=== PATIENT | male | born 1935 | race American Indian/Alaskan Native ===

== ENCOUNTER 2018-06-18 10:04 | Inpatient (IN) | payer OTHER, MEDICARE ==
[2018-06-18 10:10] VITALS: BMI 19.3
[2018-06-18] MEDS ORDERED: Vancomycin 1 gm/NS 200 ml 1 GM/200 ML BAG IVPB STA (10:25)
[2018-06-18] MEDS ORDERED: Piperacill/Tazo 4.5gm in Dex 4.5 GM/100 ML BAG IVPB STA (10:25)
[2018-06-18] MEDS: Sodium Chloride 0.9% 1,000 ML IV SCH ×2 (10:32→16:33)
[2018-06-18 10:49] LABS: BASO % 0.2 % (0.0-2.0); EOS % 0.1 % (0.0-4.0); LYMPH # 0.6 K/uL (1.0-4.3); LYMPH % 3.1 % (20.0-40.0); MEAN CELL VOLUME 81.8 fL (80.0-94.0); MEAN CORPUSCULAR HEMOGLOBIN 26.5 pg (27.0-31.0); MEAN CORPUSCULAR HGB CONC 32.4 g/dL (33.0-37.0); MEAN PLATELET VOLUME 7.8 fL (7.2-11.7); MONO # 1.6 K/uL (0.0-0.8); MONO % 8.5 % (0.0-10.0); NEUT # 16.6 K/uL (1.8-7.0); NEUT % 88.1 % (50.0-75.0); NRBC % 0.1 % (0.0-2.0); PLATELET COUNT 324 K/uL (130-400); RBC 3.75 Mil/uL (4.40-5.90); RED CELL DISTRIBUTION WIDTH 15.1 % (11.5-14.5); WHITE BLOOD COUNT 18.8 K/uL (4.8-10.8)
[2018-06-18 10:56] LABS: INR 1.8; PROTHROMBIN TIME 19.5 SECONDS (9.7-12.2)
[2018-06-18 11:03] LABS: ALB/GLOB RATIO 0.9 (1.0-2.1); ALBUMIN 3.2 g/dL (3.5-5.0); CALCIUM 9.6 mg/dl (8.6-10.4)
[2018-06-18 11:34] LABS: BANDS 2 % (0-2); MONOCYTE 7 % (0-10); TOTAL CELLS COUNTED 100
[2018-06-18 11:35] LABS: ANISOCYTOSIS SLIGHT; HYPOCHROMIC SLIGHT; LYMPHOCYTE 2 % (20-40); NEUTROPHIL 89 % (50-75); PLATELET ESTIMATE NORMAL (NORMAL); POIKILOCYTOSIS SLIGHT; TARGET CELLS SLIGHT
--- NOTE | 2018-06-18 11:39 | RAD ---
Date of service: 06/18/2018 HISTORY: Sepsis Patient COMPARISON: No prior. FINDINGS: LUNGS: No active pulmonary disease. PLEURA: No significant pleural effusion identified, no pneumothorax apparent. CARDIOVASCULAR: No radiographic findings to suggest acute or significant cardiovascular disease. OSSEOUS STRUCTURES: No significant abnormalities. VISUALIZED UPPER ABDOMEN: Normal. OTHER FINDINGS: None. IMPRESSION: No active disease.
[2018-06-18 12:48] LABS: VENOUS BLOOD PH 7.47 (7.32-7.43)
[2018-06-18 12:49] LABS: VENOUS BLOOD FIO2 21 %; VENOUS BLOOD GAS BASE EXCESS 4.5 mmol/L (0.0-2.0); VENOUS BLOOD GAS PCO2 39 mmHg (40-60); VENOUS BLOOD GAS PO2 59 mm/Hg (30-55)
--- NOTE | 2018-06-18 13:39 | C.PDOC ---
History Of Present Illness 83 y/o male brought in from rehab center via EMS for fever. Patient was given Tylenol prior to arrival. As per family at bedside, patient was placed in rehab center following sepsis from last week. Patient offers no complaints at this time. Time Seen by Provider: 06/18/18 10:17 Chief Complaint (Nursing): Fever History Per: Patient History/Exam Limitations: no limitations Onset/Duration Of Symptoms: Hrs Current Symptoms Are (Timing): Still Present Associated Symptoms: Fever Additional History Per: EMS, Family Past Medical History Reviewed: Historical Data, Nursing Documentation, Vital Signs Vital Signs: Last Vital Signs Temp 98.2 F 06/18/18 13:18 Pulse 89 06/18/18 13:18 Resp 18 06/18/18 13:18 BP 147/54 L 06/18/18 13:18 Pulse Ox 99 06/18/18 12:02 - Medical History PMH: Anemia, Dementia, HTN, Parkinson's Disease Denies: Chronic Kidney Disease - [facility] Procedures CHANGE FEEDING DEVICE IN UP INTEST TRACT, COMPUTER SPECIALIST APPROACH (05/27/18) EXTIRPATION OF MATTER FROM RECTUM, VIA OPENING (05/27/18) INSERTION OF FEEDING DEVICE INTO STOMACH, OPEN APPROACH (05/27/18) INSERTION OF INFUSION DEVICE INTO UPPER VEIN, PERC APPROACH (05/27/18) INTRODUCTION OF NUTRITIONAL INTO PERIPH VEIN, PERC APPROACH (05/27/18) ULTRASONOGRAPHY OF RIGHT UPPER EXTREMITY VEINS, GUIDANCE (05/27/18) Family History: States: No Known Family Hx - Social History Hx Alcohol Use: No Hx Substance Use: No Review Of Systems Except As Marked, All Systems Reviewed And Found Negative. Constitutional: Positive for: Fever Eyes: Negative for: Vision Change Cardiovascular: Negative for: Chest Pain Respiratory: Negative for: Shortness of Breath Gastrointestinal: Negative for: Vomiting, Abdominal Pain, Diarrhea Skin: Negative for: Lesions, Bruising Neurological: Negative for: Weakness, Headache Physical Exam - Physical Exam Appears: Non-toxic, No Acute Distress Skin: Warm, Dry, No Rash Head: Atraumatic, Normacephalic Eye(s): bilateral: Normal Inspection Oral Mucosa: Dry Neck: Normal ROM Chest: Symmetrical Cardiovascular: Murmur (+ Systolic murmur) Respiratory: No Rales, No Rhonchi, No Wheezing, Other (Poor inspiratory effort) Gastrointestinal/Abdominal: Bowel Sounds (good), Soft, No Tenderness, No Distention, Other (PEG tube in place) Back: No CVA Tenderness, No Vertebral Tenderness Extremity: Bilateral: Atraumatic, Normal Color And Temperature Pulses: Left Dorsalis Pedis: Normal, Right Dorsalis Pedis: Normal ED Course And Treatment - Laboratory Results Result Diagrams: 06/18/18 10:37 06/18/18 10:37 O2 Sat by Pulse Oximetry: 99 (NC) Pulse Ox Interpretation: Normal - Other Rad CXR X-Ray: Viewed By Me, Read By Radiologist Interpretation: Kessler, Howard MD. Patient NameCUMMEDILSON JONES / [id number] Samuels MD. Study [id number] 11:11:35Transcriber. Sex / AgeM / [id number] Samuels MD. [facility] CenterApproval [id number] 11:38:08. My Comment. Study Comments. Report. Date of service: 06/18/2018. HISTORY: Sepsis Patient. COMPARISON: No prior. FINDINGS: LUNGS: No active pulmonary disease. PLEURA: No significant pleural effusion identified, no pneumothorax apparent. CARDIOVASCULAR: No radiographic findings to suggest acute or significant cardiovascular disease. OSSEOUS STRUCTURES: No significant abnormalities. VISUALIZED UPPER ABDOMEN: Normal. OTHER FINDINGS: None. IMPRESSION: No active disease. Medical Decision Making Medical Decision Making: After resuscitation, patient opening eyes and responding normal as per family. Initial Plan: --EKG --VBG --Blood work --Urinalysis --Chest x-ray --Blood and urine cultures --IVF hydration --IV zosyn and vanco As per PMD, hematuria is chronic and pt should be admitted to [facility]. Hospitalist paged, accepted patient for admission for dehydration. Disposition Counseled Patient/Family Regarding: Diagnosis - Disposition Disposition: HOSPITALIZED Disposition Time: 11:45 Condition: STABLE - Clinical Impression Clinical Impression: Fever, Dehydration - Scribe Statement The provider has reviewed the documentation as recorded by the Misbahibe Rosina Gardner Provider Attestation: All medical record entries made by the Misbahibsamantha were at my direction and p ersonally dictated by me. I have reviewed the chart and agree that the record accurately reflects my personal performance of the history, physical exam, medical decision making, and the department course for this patient. I have also personally directed, reviewed, and agree with the discharge instructions and disposition.
--- NOTE | 2018-06-18 13:41 | CP.PCM.HP ---
<Olivia Osuna - Last Filed: 06/18/18 19:57> History of Present Illness - History of Present Illness History of Present Illness: Patient seen and examined in Room 353B at approximately 14:15 PM . Patient is nonverbal. CODE STATUS could not be determined at this time. Patient's daughter is his emergency contact. She can be reached at [phone]. CC: Fever HPI: 83 year old male with past medical history significant for HTN, DM, Parkinson's dementia presents with fever. Patient apparently was brought in from the rehab facility earlier today. Of note, patient was recently discharged 06/13/18 from [facility] after a hospital course where he was diagnosed with Severe Sepsis secondary to suspected sacral decubitus ulcer. Patient is currently nonverbal and not able to provide a review of systems. History obtained from prior hospital records anne marie to patient's nonverbal status. PMHx: Parkinson's, DM2, HTN PSHx: G-tube placed on prior hospital admission at [facility] (06/06/18) FamHx: Brother had DM2 Home meds: Unsure at this time- To confirm with family. Social Hx: no tobacco hx, remote alcohol hx - unsure of amount, recently moved from [place] - now living with his daughter at home Allergies: NKDA PMD- Dr. Heard Present on Admission - Present on Admission Any Indicators Present on Admission: Yes Urinary Catheter: Yes Decubitus Ulcer Present: Yes Decubitus Ulcer Stage: II (Stage 2 and Stage 1 ulcers noted in sacral region) Review of Systems - Review of Systems Systems not reviewed;Unavailable: Other (Cannot obtain at this time as patient is non-verbal at baseline and not able to communicate well) Past Patient History - CARDIAC Hx Hypertension: Yes - PULMONARY Hx Respiratory Disorders: No - NEUROLOGICAL Hx Dementia: Yes Hx Parkinson's Disease: Yes - HEENT Hx HEENT Problems: Yes Hx Difficulty Chewing: Yes - RENAL Hx Chronic Kidney Disease: No - ENDOCRINE/METABOLIC Hx Diabetes Mellitus Type 2: Yes - HEMATOLOGICAL/ONCOLOGICAL Hx Anemia: Yes - INTEGUMENTARY Hx Dermatological Problems: Yes Other/Comment: skin breakdown sacrum - MUSCULOSKELETAL/RHEUMATOLOGICAL Hx Musculoskeletal Disorders: Yes Hx Falls: No Hx Unsteady Gait: Yes Other/Comment: bed bound - GASTROINTESTINAL Hx Gastrointestinal Disorders: No Other/Comment: PEG tube - GENITOURINARY/GYNECOLOGICAL Hx Genitourinary Disorders: Yes Hx Incontinence: Yes - PSYCHIATRIC Hx Substance Use: No - SURGICAL HISTORY Hx Surgeries: Yes - ANESTHESIA Hx Anesthesia: Yes Hx Anesthesia Reactions: No Meds Allergies/Adverse Reactions: Allergies Allergy/AdvReac Type Severity Reaction Status Date / Time No Known Allergies Allergy Verified 05/27/18 19:08 Physical Exam - Constitutional Appears: No Acute Distress Additional comments: Limited exam at this time due to patient's presentation - Head Exam Head Exam: ATRAUMATIC, NORMAL INSPECTION - ENT Exam ENT Exam: Mucous Membranes Dry - Neck Exam Additional comments: cannot assess at this time - Respiratory Exam Respiratory Exam: NORMAL BREATHING PATTERN. absent: Wheezes - Cardiovascular Exam Cardiovascular Exam: +S1, +S2 - GI/Abdominal Exam GI & Abdominal Exam: Soft Additional comments: G-tube in place- abdominal binder noted - Extremities Exam Additional comments: contracture of upper extremities noted; rigidity noted on exam offloading boots noted on feet bilaterally - Neurological Exam Neurological exam: Altered - Psychiatric Exam Psychiatric exam: Flat Affect - Skin Skin Exam: Dry, Normal Color, Warm Additional comments: Stage 1 right-sided lateral sacral ulcer Stage 2 sacral decubitus ulcer Results - Vital Signs Recent Vital Signs: Last Vital Signs Temp 98.2 F 06/18/18 13:18 Pulse 89 06/18/18 13:18 Resp 18 06/18/18 13:18 BP 147/54 L 06/18/18 13:18 Pulse Ox 99 06/18/18 13:40 - Labs Result Diagrams: 06/18/18 10:37 06/18/18 10:37 Labs: Laboratory Results - last 24 hr 06/18/18 06/18/18 06/18/18 10:10 10:37 10:37 WBC 18.8 H RBC 3.75 L Hgb 10.0 L Hct 30.7 L MCV 81.8 MCH 26.5 L MCHC 32.4 L RDW 15.1 H Plt Count 324 MPV 7.8 Neut % (Auto) 88.1 H Lymph % (Auto) 3.1 L [place] % (Auto) 8.5 Eos % (Auto) 0.1 Baso % (Auto) 0.2 Neut # (Auto) 16.6 H Lymph # (Auto) 0.6 L [place] # (Auto) 1.6 H Eos # (Auto) 0.0 Baso # (Auto) 0.0 Neutrophils % (Manual) 89 H Band Neutrophils % 2 Lymphocytes % (Manual) 2 L Monocytes % (Manual) 7 Platelet Estimate Normal Hypochromasia (manual) Slight Poikilocytosis (manual Slight Anisocytosis (manual) Slight Target Cells Slight PT 19.5 H INR 1.8 APTT 36 H pO2 VBG pH VBG pCO2 VBG HCO3 VBG Total CO2 VBG O2 Sat (Calc) VBG Base Excess FiO2 Sodium Potassium Chloride Carbon Dioxide Anion Gap BUN Creatinine Est GFR ( Amer) Est GFR (Non-Af Amer) POC Glucose (mg/dL) 224 H Random Glucose Calcium Phosphorus Magnesium Total Bilirubin AST ALT Alkaline Phosphatase Total Protein Albumin Globulin Albumin/Globulin Ratio 06/18/18 06/18/18 10:37 10:54 WBC RBC Hgb Hct MCV MCH MCHC RDW Plt Count MPV Neut % (Auto) Lymph % (Auto) [place] % (Auto) Eos % (Auto) Baso % (Auto) Neut # (Auto) Lymph # (Auto) [place] # (Auto) Eos # (Auto) Baso # (Auto) Neutrophils % (Manual) Band Neutrophils % Lymphocytes % (Manual) Monocytes % (Manual) Platelet Estimate Hypochromasia (manual) Poikilocytosis (manual Anisocytosis (manual) Target Cells PT INR APTT pO2 59 H VBG pH 7.47 H VBG pCO2 39 L VBG HCO3 28.3 VBG Total CO2 29.6 H VBG O2 Sat (Calc) 92.2 H VBG Base Excess 4.5 H FiO2 21 Sodium 141 Potassium 4.3 Chloride 103 Carbon Dioxide 30 Anion Gap 13 BUN 46 H Creatinine 1.4 Est GFR ( Amer) 59 Est GFR (Non-Af Amer) 48 POC Glucose (mg/dL) Random Glucose 206 H Calcium 9.6 Phosphorus 3.3 Magnesium 2.1 Total Bilirubin 0.2 AST 168 H D ALT 157 H Alkaline Phosphatase 175 H D Total Protein 6.8 Albumin 3.2 L Globulin 3.5 Albumin/Globulin Ratio 0.9 L Assessment & Plan (1) Leukocytosis Assessment and Plan: WBC 18.8 No Bands noted Low grade fever initially 100.1 but then normalized Zosyn Q8H and Vancomycin Q12 started 06/18. Bacid Q12 started 06/18 F/U Vanc trough 06/19 at 18:00 NS @ 150 cc/hr F/U BC, UA, UC cultures Status: Acute (2) Sacral decubitus ulcer Assessment and Plan: Previously treated at [facility] earlier this month. Stage 1 right-sided lateral sacral ulcer Stage 2 sacral decubitus ulcer Wound care in place- Closely monitor Turn Q2H Status: Acute (3) Transaminitis Assessment and Plan: Avoid Tylenol or other Hepatotoxic agents at this time F/U Hep Panel Status: Acute (4) HTN (hypertension) Assessment and Plan: Clonidine patch TD Monitor Pressure Status: Chronic (5) Diabetes mellitus Assessment and Plan: ISS Low dose Accuchecks Hgb 6.4 on prior admission Status: Chronic (6) Parkinson's disease dementia Assessment and Plan: Chronic Not on any medication Rigidity noted on exam Palliative Consult placed- F/U Status: Chronic (7) Prophylactic measure Assessment and Plan: No GI prophylaxis at this time Heparin SC Q12 SCDs Status: Acute <Mitch Colón - Last Filed: 06/21/18 17:39> Results - Vital Signs Recent Vital Signs: Last Vital Signs Temp 98.4 F 06/21/18 15:45 Pulse 70 06/21/18 15:45 Resp 20 06/21/18 15:45 BP 171/81 H 06/21/18 15:45 Pulse Ox 100 06/21/18 15:45 - Labs Result Diagrams: 06/21/18 04:00 06/21/18 04:00 Labs: Laboratory Results - last 24 hr 06/20/18 06/21/18 06/21/18 21:19 04:00 04:00 WBC 9.4 RBC 3.18 L Hgb 8.5 L Hct 25.9 L MCV 81.4 MCH 26.7 L MCHC 32.8 L RDW 15.2 H Plt Count 309 MPV 7.4 Neut % (Auto) 71.0 Lymph % (Auto) 17.1 L [place] % (Auto) 9.5 Eos % (Auto) 2.0 Baso % (Auto) 0.4 Neut # (Auto) 6.7 Lymph # (Auto) 1.6 [place] # (Auto) 0.9 H Eos # (Auto) 0.2 Baso # (Auto) 0.0 Sodium 142 Potassium 3.3 L Chloride 108 H Carbon Dioxide 24 Anion Gap 13 BUN 17 Creatinine 0.8 Est GFR ( Amer) > 60 Est GFR (Non-Af Amer) > 60 POC Glucose (mg/dL) 96 Random Glucose 108 Calcium 8.4 L Phosphorus 3.0 Magnesium 1.8 Total Bilirubin 0.3 AST 43 ALT 124 H D Alkaline Phosphatase 159 H Total Protein 5.6 L Albumin 2.4 L Globulin 3.2 Albumin/Globulin Ratio 0.8 L Vancomycin Trough 06/21/18 06/21/18 06/21/18 04:00 07:21 11:22 WBC RBC Hgb Hct MCV MCH MCHC RDW Plt Count MPV Neut % (Auto) Lymph % (Auto) [place] % (Auto) Eos % (Auto) Baso % (Auto) Neut # (Auto) Lymph # (Auto) [place] # (Auto) Eos # (Auto) Baso # (Auto) Sodium Potassium Chloride Carbon Dioxide Anion Gap BUN Creatinine Est GFR ( Amer) Est GFR (Non-Af Amer) POC Glucose (mg/dL) 138 H 132 H Random Glucose Calcium Phosphorus Magnesium Total Bilirubin AST ALT Alkaline Phosphatase Total Protein Albumin Globulin Albumin/Globulin Ratio Vancomycin Trough 13.8 H 06/21/18 16:17 WBC RBC Hgb Hct MCV MCH MCHC RDW Plt Count MPV Neut % (Auto) Lymph % (Auto) [place] % (Auto) Eos % (Auto) Baso % (Auto) Neut # (Auto) Lymph # (Auto) [place] # (Auto) Eos # (Auto) Baso # (Auto) Sodium Potassium Chloride Carbon Dioxide Anion Gap BUN Creatinine Est GFR ( Amer) Est GFR (Non-Af Amer) POC Glucose (mg/dL) 128 H Random Glucose Calcium Phosphorus Magnesium Total Bilirubin AST ALT Alkaline Phosphatase Total Protein Albumin Globulin Albumin/Globulin Ratio Vancomycin Trough Attending/Attestation - Attestation I have personally seen and examined this patient.: Yes I have fully participated in the care of the patient.: Yes I have reviewed all pertinent clinical information: Yes Notes (Text): Fever Work up in ED insufficient. Check UA, blood cultures. Possible source urine, penumonia, sacral decub. Sepsis? follow lactate possible change in ms - unk baseline
[2018-06-18] MEDS ORDERED: Glucagon Recombinant 1 mg Inj IM PRN (17:17)
[2018-06-18] MEDS ORDERED: Dextrose 50% SYRINGE Inj (50 ml) IV PRN (17:17)
[2018-06-18] MEDS: Lactobacillus Acidophilus 500 MU Cap PO SCH (19:01)
[2018-06-18] MEDS ORDERED: Vancomycin 1 gm/NS 200 ml 1 GM/200 ML BAG IVPB SCH (22:00)
[2018-06-18] MEDS: (Novolog) Insulin Aspart, Recombinant 100 u/ml 10 ml vial SC SCH (22:08)
[2018-06-18 22:46] LABS: SQUAMOUS EPITHIAL 1 /hpf (0-5); URINE BACTERIA RARE (<OCC); URINE BILIRUBIN NEGATIVE (NEGATIVE); URINE BLOOD 3+ (NEGATIVE); URINE CLARITY Hazy (Clear); URINE GLUCOSE (UA) NORMAL (Normal); URINE LEUKOCYTE ESTERASE 3+ Leu/uL (Negative); URINE PROTEIN 2+ mg/dL (NEGATIVE); URINE UROBILINOGEN NORMAL mg/dL (0.2-1.0)
[2018-06-18 22:47] LABS: URINE COLOR AMBER (YELLOW)
[2018-06-19] MEDS: Vancomycin 1 gm/NS 200 ml 1 GM/200 ML BAG IVPB SCH ×2 (03:25→15:00)
[2018-06-19] MEDS: Piperacillin/Tazobact 3.375 GM in Sodium Chloride 100 ML IVPB SCH ×3 (06:30→18:22)
[2018-06-19] MEDS: Sodium Chloride 0.9% 1,000 ML IV SCH ×4 (06:46→21:38)
[2018-06-19 06:52] LABS: BASO # 0.1 K/uL (0.0-0.2); BASO % 0.3 % (0.0-2.0); EOS # 0.1 K/uL (0.0-0.7); EOS % 0.6 % (0.0-4.0); HEMOGLOBIN 8.3 g/dL (12.0-18.0); LYMPH # 1.3 K/uL (1.0-4.3); LYMPH % 7.6 % (20.0-40.0); MEAN CELL VOLUME 81.1 fL (80.0-94.0); MEAN CORPUSCULAR HEMOGLOBIN 26.9 pg (27.0-31.0); MEAN CORPUSCULAR HGB CONC 33.2 g/dL (33.0-37.0); MEAN PLATELET VOLUME 7.5 fL (7.2-11.7); MONO # 1.1 K/uL (0.0-0.8); MONO % 6.3 % (0.0-10.0); NEUT % 85.2 % (50.0-75.0); PLATELET COUNT 287 K/uL (130-400); RBC 3.08 Mil/uL (4.40-5.90); WHITE BLOOD COUNT 17.6 K/uL (4.8-10.8)
[2018-06-19] MEDS ORDERED: Vancomycin 1 gm/NS 200 ml 1 GM/200 ML BAG IVPB SCH (07:00)
[2018-06-19 07:22] LABS: ALB/GLOB RATIO 0.8 (1.0-2.1); ALBUMIN 2.6 g/dL (3.5-5.0); ALT/SGPT 250 U/L (21-72); AST/SGOT 317 U/L (17-59); BLOOD UREA NITROGEN 37 mg/dL (9-20); CALCIUM 8.8 mg/dl (8.6-10.4); GFR NON-AFRICAN AMERICAN > 60
[2018-06-19 07:26] LABS: HEPATITIS B SURFACE AG Negative (NEGATIVE)
[2018-06-19 07:32] LABS: HEPATITIS A IGM NEGATIVE (NEGATIVE); HEPATITIS B CORE AB NEGATIVE (NEGATIVE)
[2018-06-19 07:43] LABS: HEPATITIS C ANTIBODY NEGATIVE (NEGATIVE)
[2018-06-19] MEDS: (Novolog) Insulin Aspart, Recombinant 100 u/ml 10 ml vial SC SCH ×4 (07:55→21:44)
[2018-06-19 08:49] LABS: ANISOCYTOSIS SLIGHT; BANDS 2 % (0-2); LYMPHOCYTE 9 % (20-40); MONOCYTE 6 % (0-10); NEUTROPHIL 83 % (50-75); PLATELET ESTIMATE NORMAL (NORMAL); TOTAL CELLS COUNTED 100
[2018-06-19 08:50] LABS: HYPOCHROMIC SLIGHT; POLYCHROMIC SLIGHT
--- NOTE | 2018-06-19 10:15 | CP.PCM.PN ---
Addendum entered and electronically signed by Marlin Galicia 06/19/18 15:23: Nursing reports G-tube pulled around 2:30pm -reinserted by sx residents Addendum entered and electronically signed by Marlin Galicia 06/19/18 13:51: Bacteremia, likely 2/2 pyelo -gram neg frandy, awaiting micro cx -zosyn 3.375 q6 Addendum entered and electronically signed by Marlin Galicia 06/19/18 13:49: CT abd/pelvis shows possible colitis/rectal lesion. -Flagyl 500mg q8 Original Note: <Marlin Galicia - Last Filed: 06/19/18 10:46> Subjective - Date & Time of Evaluation Date of Evaluation: 06/19/18 Time of Evaluation: 09:40 - Subjective Subjective: Patient examined at bedside, resting comfortably. No acute events reported overnight. Patient is non-verbal. Objective - Vital Signs/Intake and Output Vital Signs (last 24 hours): Temp Pulse Resp BP Pulse Ox 98.7 F 75 20 121/66 100 06/19/18 08:00 06/19/18 08:00 06/19/18 08:00 06/19/18 08:00 06/19/18 08:00 Intake and Output: 06/19/18 06/19/18 06:59 18:59 Intake Total 3480 Output Total 800 Balance 2680 - Medications Medications: Current Medications Clonidine HCl (Catapres Tts1 0.1 Mg/24 Hr) 1 patch TD Q7D@1000 REPLACED BY [facility] Last Admin: 06/18/18 22:00 Dose: 1 patch Dextrose (Dextrose 50% Inj) 0 ml IV STAT PRN; Protocol PRN Reason: Hypoglycemia Protocol Dextrose (Glutose 15) 0 gm PO ONCE PRN; Protocol PRN Reason: Hypoglycemia Protocol Glucagon (Glucagen Diagnostic Kit) 0 mg IM STAT PRN; Protocol PRN Reason: Hypoglycemia Protocol Heparin Sodium (Porcine) (Heparin) 5,000 units SC Q12 REPLACED BY [facility] Last Admin: 06/18/18 22:41 Dose: Not Given Sodium Chloride (Sodium Chloride 0.9%) 1,000 mls @ 150 mls/hr IV .Q6H40M REPLACED BY [facility] Last Admin: 06/19/18 06:46 Dose: Not Given Piperacillin Sod/Tazobactam (Sod 3.375 gm/ Sodium Chloride) 100 mls @ 200 mls/hr IVPB Q6H [facility]; Protocol Last Admin: 06/19/18 06:30 Dose: 200 mls/hr Dextrose (Dextrose 5% In Water 1000 Ml) 1,000 mls @ 0 mls/hr IV .Q0M PRN; Protocol PRN Reason: Hypoglycemia Protocol Vancomycin/Sodium Chloride (Vancomycin 1 Gm/Ns 200 Ml) 1 gm in 200 mls @ 133.333 mls/hr IVPB Q12H [facility]; Protocol Stop: 06/24/18 03:01 Last Admin: 06/19/18 03:25 Dose: 133.333 mls/hr Insulin Aspart (Novolog) 0 unit SC ACHS [facility]; Protocol Last Admin: 06/19/18 07:55 Dose: Not Given Lactobacillus Acidophilus (Bacid Acidophilus) 1 cap PO BID [facility] Last Admin: 06/18/18 19:01 Dose: 1 cap Pneumococcal Polyvalent Vaccine (Pneumovax 23 Vaccine) 0.5 ml IM .ONCE ONE Stop: 06/21/18 10:01 - Labs Labs: 06/19/18 06:35 06/19/18 06:35 PT 19.5 SECONDS (9.7-12.2) H 06/18/18 10:37 INR 1.8 06/18/18 10:37 APTT 36 SECONDS (21-34) H 06/18/18 10:37 - Constitutional Appears: Non-toxic, No Acute Distress - Head Exam Head Exam: ATRAUMATIC, NORMAL INSPECTION, NORMOCEPHALIC - ENT Exam ENT Exam: Mucous Membranes Moist - Neck Exam Neck Exam: Normal Inspection - Respiratory Exam Respiratory Exam: Clear to Ausculation Bilateral, NORMAL BREATHING PATTERN. absent: Rhonchi, Wheezes - Cardiovascular Exam Cardiovascular Exam: REGULAR RHYTHM. absent: Tachycardia, Murmur - GI/Abdominal Exam GI & Abdominal Exam: Soft, Normal Bowel Sounds. absent: Distended Additional comments: PEG tube dressed, clean dry and intact - Extremities Exam Extremities Exam: Normal Inspection. absent: Pedal Edema - Neurological Exam Neurological Exam: Altered. absent: Awake - Skin Skin Exam: Dry, Normal Color, Warm. absent: Intact (sacral decubitus ulcer not examined, per reports stage 2) Assessment and Plan - Assessment and Plan (Free Text) Assessment: 83 yo M w/ PMHx of HTN, DM2, Parkinsons, recent severe sepsis infxn, admitted w/ leukocytosis Leukocytosis, r/o sepsis -WBC 18.8-->17.6 today -zosyn 3.375 q6 -vanco 1g q12 -NS @150 -f/u vanc trough -AMS, unsure of baseline -f/u lactate -f/u procalcitonin -UTI/pyelo suspected source of infection UTI/pyelonephritis -f/u CT abd/pelvis fror pyelo or intra abd abscess -f/u urine cx AMS -called daughter at [phone] and left message, call back later Sacral Decubitus ulcer -stage 2, likely not source of leukocytosis -wound care -position changes q2 Transaminitis -worsening liver enzymes -Hep panel negative -f/u CT for evidence of cholecystitis HTN, chronic -clonidine patch TD DM2 -Accuchecks ACHS -ISS low dose -glucerna PEG @50 Parkinsons -stable -palliative consult Ppx -heparin 5000 sc q12 -lactobacillus BID <Mitch Colón - Last Filed: 06/21/18 17:37> Attending/Attestation - Attestation I have personally seen and examined this patient.: Yes I have fully participated in the care of the patient.: Yes I have reviewed all pertinent clinical information, including history, physical exam and plan: Yes Notes (Text): 83 yo M w/ PMHx of HTN, DM2, Parkinsons, recent severe sepsis infxn, admitted w/ leukocytosis Leukocytosis, Sepsis? / Bactermia UTI/pyelonephritis AMS ? baseline Sacral Decubitus ulcer
[2018-06-19] MEDS: Lactobacillus Acidophilus 500 MU Cap PO SCH ×2 (10:16→18:21)
[2018-06-19 12:19] LABS: VENOUS BLOOD GAS BASE EXCESS -11.2 mmol/L (0.0-2.0); VENOUS BLOOD GAS PCO2 64 mmHg (40-60); VENOUS BLOOD GAS PO2 129 mm/Hg (30-55); VENOUS BLOOD PH 7.09 (7.32-7.43)
[2018-06-19 13:07] LABS: ALB/GLOB RATIO 0.8 (1.0-2.1); ALBUMIN 2.7 g/dL (3.5-5.0); ALT/SGPT 244 U/L (21-72); AST/SGOT 258 U/L (17-59); BLOOD UREA NITROGEN 32 mg/dL (9-20); CALCIUM 9.1 mg/dl (8.6-10.4); GFR NON-AFRICAN AMERICAN > 60
[2018-06-19 13:17] LABS: ABG ALLEN TEST POS; ARTERIAL BLOOD GAS HCO3 25.4 mmol/L (21-28); ARTERIAL BLOOD GAS O2 SAT 99.6 % (95-98); ARTERIAL BLOOD GAS PCO2 37 mm/Hg (35-45); ARTERIAL BLOOD GAS PH 7.43 (7.35-7.45); ARTERIAL BLOOD GAS PO2 176 mm/Hg (80-100); ARTERIAL BLOOD GAS TCO2 25.7 mmol/L (22-28)
--- NOTE | 2018-06-19 13:34 | CT ---
Date of service: 06/19/2018 PROCEDURE: CT abdomen pelvis HISTORY: Rule out intra-abdominal abscess/pyelo COMPARISON: No prior study available for comparison TECHNIQUE: Contiguous axial images of the abdomen and pelvis performed without oral or intravenous contrast material. Additional 2D sagittal and coronal reformats generated. Radiation dose: Total exam DLP = 385.06 mGy-cm. This CT exam was performed using one or more of the following dose reduction techniques: Automated exposure control, adjustment of the mA and/or kV according to patient size, and/or use of iterative reconstruction technique. FINDINGS: LOWER THORAX: Mild bibasilar atelectasis right greater than left. No evidence of basilar pneumothorax. Small calcified granuloma left lateral lower lung field along the left posterolateral convexity near the pleural surface. Heart is enlarged. Small pericardial effusion. Findings suggest anemia however clinical correlation with laboratory values recommended LIVER: Liver exhibits normal size measuring the approximately 17 cm in CC dimension. No obvious hepatic mass collection or calcification. GALLBLADDER AND BILE DUCTS: Gallbladder physiologically distended.. There is a large intraluminal gallbladder calculus the. PANCREAS: Pancreas is poorly delineated due to a paucity of retroperitoneal as well as intraperitoneal fat and unopacified crowded the bowel loops.. SPLEEN: Spleen exhibits normal size. ADRENALS: No definitive adrenal lesions. KIDNEYS AND URETERS: Kidneys demonstrate relatively symmetric size. Vague area low attenuation involving the anterior cortex lower pole right kidney could represent volume averaging artifact however the possibility of a pyelonephritis cannot be excluded. No evidence of nephrolithiasis or hydronephrosis BLADDER: There is an in situ unclamped Mckinnon catheter within the bladder lumen. The urinary bladder is collapsed with thickening of the bladder wall. Muscular hypertrophy presumably contributes. Possibility of a cystitis/UTI not excluded. Small amount of intraluminal air within the urinary bladder likely due to instrumentation. REPRODUCTIVE: Prostate gland appears enlarged measuring approximately 4.7 cm in transverse dimension.. Enlargement likely due to BPH however correlation with PSA suggested. APPENDIX: Appendix is not seen with complete certainty BOWEL: Evaluation of the bowel limited due to the lack of oral contrast material. Stomach is incompletely distended with insitu PEG tube. Visualized loops of small bowel exhibit relatively normal contour and caliber with no evidence of small bowel obstruction. There is wall thickening of the distal descending/sigmoid colon junction extending the length of the sigmoid colon including the rectum where there is more significant asymmetric wall thickening of the rectal wall. Findings may represent a colitis however possibility of other intrinsic/invasive wall lesions not excluded. The there is a stoma seen along the left parasagittal mid anterior abdominal wall through which a loop of bowel extends. PERITONEUM: There appears to be a small amount of free fluid in the pelvis.There is a small right inguinal hernia that contains 1 or 2 loops of unobstructed small bowel and mesenteric fat LYMPH NODES: Evaluation for adenopathy is also limited the due to paucity of retroperitoneal/peritoneal fat well as crowded loops of bowel VASCULATURE: Unremarkable. No aortic aneurysm. BONES: No fracture or destructive lesion. OTHER FINDINGS: Some vague infiltration changes seen in the the soft tissues overlying the distal sacrum likely representing treated sacral decubitus ulcer. IMPRESSION: Mild bibasilar atelectasis right greater than left. Cardiomegaly with small pericardial effusion. Findings also suggestive of anemia. Cholelithiasis. In situ PEG tube. Wall thickening of the distal descending/sigmoid colon extending to the level of the rectum where more significant asymmetric wall thickening is present. While these findings could be due to a colitis, the possibility of invasive/intrinsic/invasive wall lesion. There is a small right inguinal hernia that contains 1 or 2 loops of unobstructed small bowel and mesenteric fat There is a small amount of free fluid in the pelvis. Subtle low-attenuation inferior pole right kidney could represent volume averaging artifact of the possibility of a pyelonephritis cannot be excluded. In situ unclamped Mckinnon catheter within the collapsed urinary bladder. There is wall thickening of the urinary bladder on due to collapse is well as muscular hypertrophy however possibility of a cystitis/UTI must be excluded and correlation with urinalysis.
[2018-06-19] MEDS: metroNIDAZOLE IV 500 mg/100 ml 500 MG/100 ML BAG IVPB SCH ×2 (14:12→21:40)
[2018-06-20] MEDS: Piperacillin/Tazobact 3.375 GM in Sodium Chloride 100 ML IVPB SCH ×4 (00:11→19:07)
[2018-06-20] MEDS: Sodium Chloride 0.9% 1,000 ML IV SCH ×5 (02:30→18:06)
[2018-06-20] MEDS: Vancomycin 1 gm/NS 200 ml 1 GM/200 ML BAG IVPB SCH ×2 (02:33→15:55)
[2018-06-20] MEDS: metroNIDAZOLE IV 500 mg/100 ml 500 MG/100 ML BAG IVPB SCH ×3 (05:13→21:12)
[2018-06-20 07:33] LABS: BASO % 0.2 % (0.0-2.0); EOS # 0.3 K/uL (0.0-0.7); EOS % 1.8 % (0.0-4.0); HEMOGLOBIN 8.8 g/dL (12.0-18.0); LYMPH # 1.5 K/uL (1.0-4.3); LYMPH % 9.8 % (20.0-40.0); MEAN CORPUSCULAR HEMOGLOBIN 26.7 pg (27.0-31.0); MEAN CORPUSCULAR HGB CONC 32.6 g/dL (33.0-37.0); MEAN PLATELET VOLUME 7.7 fL (7.2-11.7); MONO # 1.2 K/uL (0.0-0.8); MONO % 7.8 % (0.0-10.0); NEUT # 12.2 K/uL (1.8-7.0); NEUT % 80.4 % (50.0-75.0); PLATELET COUNT 310 K/uL (130-400); RBC 3.29 Mil/uL (4.40-5.90); RED CELL DISTRIBUTION WIDTH 15.3 % (11.5-14.5); WHITE BLOOD COUNT 15.2 K/uL (4.8-10.8)
[2018-06-20 08:08] LABS: ALB/GLOB RATIO 0.7 (1.0-2.1); ALBUMIN 2.5 g/dL (3.5-5.0); ALT/SGPT 180 U/L (21-72); AST/SGOT 112 U/L (17-59); BLOOD UREA NITROGEN 20 mg/dL (9-20); GFR NON-AFRICAN AMERICAN > 60
[2018-06-20] MEDS: (Novolog) Insulin Aspart, Recombinant 100 u/ml 10 ml vial SC SCH ×4 (08:17→21:19)
[2018-06-20 08:40] LABS: ANISOCYTOSIS SLIGHT; BANDS 1 % (0-2); EOSINOPHIL 4 % (0-4); HYPOCHROMIC SLIGHT; LYMPHOCYTE 7 % (20-40); MONOCYTE 6 % (0-10); NEUTROPHIL 82 % (50-75); PLATELET ESTIMATE NORMAL (NORMAL); POIKILOCYTOSIS SLIGHT; TOTAL CELLS COUNTED 100
[2018-06-20] MEDS: Lactobacillus Acidophilus 500 MU Cap PO SCH ×2 (09:23→18:55)
--- NOTE | 2018-06-20 10:43 | CP.PCM.CON ---
History of Present Illness - History of Present Illness History of Present Illness: Re: Dislodged G-tube Pt is well known to surgical service. Pt has Gastrostomy tube placed with Dr Wily Orozco at [facility] Yesterday, surgical service was asked to see pt for dislodged G-tube. I personally called Dr Orozco, and discussed with him. This pt had a Janeway procedure, meaning there is a well developed tract leading from the skin site into the stomach. The tube can easily be replaced through this tract back into the stomach. This was done yesterday without difficulty. I recommended the pt not be scanned as there was no indication, Dr Orozco agreed. This pt has removed this tube 7-8 times over the past few weeks. [place] [facility] wrist restraints to prevent this. Pt was under Dr Orozco care during this time and he is aware of this difficulty. There is no surgical option to se cure the tube in a way that would not be detrimental to the pt. There is no harm in the continuous dislodgement, though it is indeed an inconvenience. The family, or care staff, can continue to clean off the tube that is present, reinsert into stomach, and reinflate balloon. Restrain PRN. Perhaps cover the G-tube in a way the pt cannot get to it. Consider mittens if wrist restraints are not feasible. We will replace the tube today with a new one. I have discussed this at length with Dr Orozco. If there are any concerns he encourages anyone to contact him, as he is very approachable and always willing to discuss the care of patients. Past Patient History - Past Medical History & Family History Past Medical History?: Yes - Past Social History Smoking Status: Never Smoked - CARDIAC Hx Hypertension: Yes - PULMONARY Hx Respiratory Disorders: No - NEUROLOGICAL Hx Dementia: Yes Hx Parkinson's Disease: Yes - HEENT Hx HEENT Problems: Yes Hx Difficulty Chewing: Yes - RENAL Hx Chronic Kidney Disease: No - ENDOCRINE/METABOLIC Hx Diabetes Mellitus Type 2: Yes - HEMATOLOGICAL/ONCOLOGICAL Hx Anemia: Yes - INTEGUMENTARY Hx Dermatological Problems: Yes Other/Comment: skin breakdown sacrum - MUSCULOSKELETAL/RHEUMATOLOGICAL Hx Musculoskeletal Disorders: Yes Hx Falls: No Hx Unsteady Gait: Yes Other/Comment: bed bound - GASTROINTESTINAL Hx Gastrointestinal Disorders: No Other/Comment: PEG tube - GENITOURINARY/GYNECOLOGICAL Hx Genitourinary Disorders: Yes Hx Incontinence: Yes - PSYCHIATRIC Hx Substance Use: No - SURGICAL HISTORY Hx Surgeries: Yes - ANESTHESIA Hx Anesthesia: Yes Hx Anesthesia Reactions: No Meds Allergies/Adverse Reactions: Allergies Allergy/AdvReac Type Severity Reaction Status Date / Time No Known Allergies Allergy Verified 05/27/18 19:08 - Medications Medications: Current Medications Clonidine HCl (Catapres Tts1 0.1 Mg/24 Hr) 1 patch TD Q7D@1000 [facility] Last Admin: 06/18/18 22:00 Dose: 1 patch Dextrose (Dextrose 50% Inj) 0 ml IV STAT PRN; Protocol PRN Reason: Hypoglycemia Protocol Dextrose (Glutose 15) 0 gm PO ONCE PRN; Protocol PRN Reason: Hypoglycemia Protocol Glucagon (Glucagen Diagnostic Kit) 0 mg IM STAT PRN; Protocol PRN Reason: Hypoglycemia Protocol Heparin Sodium (Porcine) (Heparin) 5,000 units SC Q12 [facility] Last Admin: 06/20/18 09:22 Dose: 5,000 units Sodium Chloride (Sodium Chloride 0.9%) 1,000 mls @ 150 mls/hr IV .Q6H40M [facility] Last Admin: 06/20/18 09:24 Dose: Not Given Piperacillin Sod/Tazobactam (Sod 3.375 gm/ Sodium Chloride) 100 mls @ 200 mls/hr IVPB Q6H [facility]; Protocol Last Admin: 06/20/18 06:17 Dose: 200 mls/hr Dextrose (Dextrose 5% In Water 1000 Ml) 1,000 mls @ 0 mls/hr IV .Q0M PRN; Protocol PRN Reason: Hypoglycemia Protocol Vancomycin/Sodium Chloride (Vancomycin 1 Gm/Ns 200 Ml) 1 gm in 200 mls @ 133.333 mls/hr IVPB Q12H [facility]; Protocol Stop: 06/24/18 03:01 Last Admin: 06/20/18 02:33 Dose: 133.333 mls/hr Metronidazole (Flagyl) 500 mg in 100 mls @ 100 mls/hr IVPB Q8H [facility]; Protocol Last Admin: 06/20/18 05:13 Dose: 100 mls/hr Insulin Aspart (Novolog) 0 unit SC ACHS [facility]; Protocol Last Admin: 06/20/18 08:17 Dose: Not Given Lactobacillus Acidophilus (Bacid Acidophilus) 1 cap PO BID [facility] Last Admin: 06/20/18 09:23 Dose: Not Given Phytonadione (Vitamin K Tab) 5 mg PEG DAILY [facility] Stop: 06/23/18 12:46 Last Admin: 06/20/18 09:24 Dose: Not Given Pneumococcal Polyvalent Vaccine (Pneumovax 23 Vaccine) 0.5 ml IM .ONCE ONE Stop: 06/21/18 10:01 Results - Vital Signs Recent Vital Signs: Last Vital Signs Temp 97.5 F L 06/20/18 07:41 Pulse 75 06/20/18 07:41 Resp 20 06/20/18 07:41 BP 117/78 06/20/18 07:41 Pulse Ox 100 06/20/18 07:41 - Labs Result Diagrams: 06/20/18 07:21 06/20/18 07:21 Labs: Laboratory Results - last 24 hr 06/19/18 06/19/18 06/19/18 11:00 12:11 12:11 WBC RBC Hgb Hct MCV MCH MCHC RDW Plt Count MPV Neut % (Auto) Lymph % (Auto) [place] % (Auto) Eos % (Auto) Baso % (Auto) Neut # (Auto) Lymph # (Auto) [place] # (Auto) Eos # (Auto) Baso # (Auto) Neutrophils % (Manual) Band Neutrophils % Lymphocytes % (Manual) Monocytes % (Manual) Eosinophils % (Manual) Platelet Estimate Hypochromasia (manual) Poikilocytosis (manual Anisocytosis (manual) Puncture Site pCO2 pO2 HCO3 ABG pH ABG Total CO2 ABG O2 Saturation ABG Base Excess Nader Test ABG Potassium VBG pH VBG pCO2 VBG HCO3 VBG Total CO2 VBG O2 Sat (Calc) VBG Base Excess VBG Potassium Sodium Chloride Glucose Lactate Crit Value Called To Crit Value Called By Crit Value Read Back Blood Gas Notified Time Potassium Carbon Dioxide Anion Gap BUN Creatinine Est GFR ( Amer) Est GFR (Non-Af Amer) POC Glucose (mg/dL) 148 H Random Glucose Calcium Phosphorus Magnesium Total Bilirubin AST ALT Alkaline Phosphatase Total Protein Albumin Globulin Albumin/Globulin Ratio Procalcitonin 69.81 H Arterial Blood Potassium Venous Blood Potassium Vancomycin Trough 11.3 H 06/19/18 06/19/18 06/19/18 12:11 12:41 13:14 WBC RBC Hgb Hct MCV MCH MCHC RDW Plt Count MPV Neut % (Auto) Lymph % (Auto) [place] % (Auto) Eos % (Auto) Baso % (Auto) Neut # (Auto) Lymph # (Auto) [place] # (Auto) Eos # (Auto) Baso # (Auto) Neutrophils % (Manual) Band Neutrophils % Lymphocytes % (Manual) Monocytes % (Manual) Eosinophils % (Manual) Platelet Estimate Hypochromasia (manual) Poikilocytosis (manual Anisocytosis (manual) Puncture Site Done by pCO2 37 pO2 129 H 176 H HCO3 25.4 ABG pH 7.43 ABG Total CO2 25.7 ABG O2 Saturation 99.6 H ABG Base Excess 0.5 Nader Test Pos ABG Potassium 3.5 L VBG pH 7.09 L* VBG pCO2 64 H VBG HCO3 16.2 VBG Total CO2 21.4 L VBG O2 Sat (Calc) 99.8 H VBG Base Excess -11.2 L VBG Potassium > 20.0 H* Sodium 140.0 147 146.0 Chloride 118.0 H 112 H 117.0 H Glucose 110 130 H Lactate 0.6 L 0.6 L Crit Value Called To dahiana Hannah Crit Value Called By Danielle chapman Crit Value Read Back Y Blood Gas Notified Time 1219 Potassium 4.0 Carbon Dioxide 28 Anion Gap 11 BUN 32 H Creatinine 1.0 Est GFR ( Amer) > 60 Est GFR (Non-Af Amer) > 60 POC Glucose (mg/dL) Random Glucose 133 H Calcium 9.1 Phosphorus Magnesium Total Bilirubin 0.3 AST 258 H ALT 244 H Alkaline Phosphatase 193 H Total Protein 6.2 L Albumin 2.7 L Globulin 3.5 Albumin/Globulin Ratio 0.8 L Procalcitonin Arterial Blood Potassium 3.5 L Venous Blood Potassium > 20.0 H* Vancomycin Trough 06/19/18 06/19/18 06/20/18 16:40 21:11 07:21 WBC 15.2 H RBC 3.29 L Hgb 8.8 L Hct 27.0 L MCV 82.0 MCH 26.7 L MCHC 32.6 L RDW 15.3 H Plt Count 310 MPV 7.7 Neut % (Auto) 80.4 H Lymph % (Auto) 9.8 L [place] % (Auto) 7.8 Eos % (Auto) 1.8 Baso % (Auto) 0.2 Neut # (Auto) 12.2 H Lymph # (Auto) 1.5 [place] # (Auto) 1.2 H Eos # (Auto) 0.3 Baso # (Auto) 0.0 Neutrophils % (Manual) 82 H Band Neutrophils % 1 Lymphocytes % (Manual) 7 L Monocytes % (Manual) 6 Eosinophils % (Manual) 4 Platelet Estimate Normal Hypochromasia (manual) Slight Poikilocytosis (manual Slight Anisocytosis (manual) Slight Puncture Site pCO2 pO2 HCO3 ABG pH ABG Total CO2 ABG O2 Saturation ABG Base Excess Nader Test ABG Potassium VBG pH VBG pCO2 VBG HCO3 VBG Total CO2 VBG O2 Sat (Calc) VBG Base Excess VBG Potassium Sodium Chloride Glucose Lactate Crit Value Called To Crit Value Called By Crit Value Read Back Blood Gas Notified Time Potassium Carbon Dioxide Anion Gap BUN Creatinine Est GFR ( Amer) Est GFR (Non-Af Amer) POC Glucose (mg/dL) 120 H 109 Random Glucose Calcium Phosphorus Magnesium Total Bilirubin AST ALT Alkaline Phosphatase Total Protein Albumin Globulin Albumin/Globulin Ratio Procalcitonin Arterial Blood Potassium Venous Blood Potassium Vancomycin Trough 06/20/18 06/20/18 07:21 08:14 WBC RBC Hgb Hct MCV MCH MCHC RDW Plt Count MPV Neut % (Auto) Lymph % (Auto) [place] % (Auto) Eos % (Auto) Baso % (Auto) Neut # (Auto) Lymph # (Auto) [place] # (Auto) Eos # (Auto) Baso # (Auto) Neutrophils % (Manual) Band Neutrophils % Lymphocytes % (Manual) Monocytes % (Manual) Eosinophils % (Manual) Platelet Estimate Hypochromasia (manual) Poikilocytosis (manual Anisocytosis (manual) Puncture Site pCO2 pO2 HCO3 ABG pH ABG Total CO2 ABG O2 Saturation ABG Base Excess Nader Test ABG Potassium VBG pH VBG pCO2 VBG HCO3 VBG Total CO2 VBG O2 Sat (Calc) VBG Base Excess VBG Potassium Sodium 144 Chloride 111 H Glucose Lactate Crit Value Called To Crit Value Called By Crit Value Read Back Blood Gas Notified Time Potassium 3.7 Carbon Dioxide 24 Anion Gap 13 BUN 20 Creatinine 0.9 Est GFR ( Amer) > 60 Est GFR (Non-Af Amer) > 60 POC Glucose (mg/dL) 96 Random Glucose 97 Calcium 9.0 Phosphorus 3.2 Magnesium 2.0 Total Bilirubin 0.3 AST 112 H D ALT 180 H D Alkaline Phosphatase 185 H Total Protein 6.0 L Albumin 2.5 L Globulin 3.4 Albumin/Globulin Ratio 0.7 L Procalcitonin Arterial Blood Potassium Venous Blood Potassium Vancomycin Trough
--- NOTE | 2018-06-20 12:43 | CP.PCM.PN ---
<Ajay Bautista - Last Filed: 06/21/18 01:43> Subjective - Date & Time of Evaluation Date of Evaluation: 06/20/18 Time of Evaluation: 14:15 - Subjective Subjective: Patient is seen and examined at bedside. Patient is nonverbal. Patient daughter Katelyn and Lizz are at bedside. Patient's daugthers states patient is having pain. Patient is able to squeeze daughter's hand to indicate pain. When asked to point where pain is located , patient points to the Left lower quadrant near where PEG tube is placed. Further ROS unattainable due to patients non verbal status. Objective - Vital Signs/Intake and Output Vital Signs (last 24 hours): Temp Pulse Resp BP Pulse Ox 97.5 F L 75 20 117/78 100 06/20/18 07:41 06/20/18 07:41 06/20/18 07:41 06/20/18 07:41 06/20/18 07:41 Intake and Output: 06/20/18 06/20/18 06:59 18:59 Intake Total 1360 1660 Output Total 1450 Balance -90 1660 - Medications Medications: Current Medications Clonidine HCl (Catapres Tts1 0.1 Mg/24 Hr) 1 patch TD Q7D@1000 [facility] Last Admin: 06/18/18 22:00 Dose: 1 patch Dextrose (Dextrose 50% Inj) 0 ml IV STAT PRN; Protocol PRN Reason: Hypoglycemia Protocol Dextrose (Glutose 15) 0 gm PO ONCE PRN; Protocol PRN Reason: Hypoglycemia Protocol Glucagon (Glucagen Diagnostic Kit) 0 mg IM STAT PRN; Protocol PRN Reason: Hypoglycemia Protocol Heparin Sodium (Porcine) (Heparin) 5,000 units SC Q12 [facility] Last Admin: 06/20/18 09:22 Dose: 5,000 units Sodium Chloride (Sodium Chloride 0.9%) 1,000 mls @ 150 mls/hr IV .Q6H40M [facility] Last Admin: 06/20/18 09:24 Dose: Not Given Piperacillin Sod/Tazobactam (Sod 3.375 gm/ Sodium Chloride) 100 mls @ 200 mls/hr IVPB Q6H [facility]; Protocol Last Admin: 06/20/18 06:17 Dose: 200 mls/hr Dextrose (Dextrose 5% In Water 1000 Ml) 1,000 mls @ 0 mls/hr IV .Q0M PRN; Protocol PRN Reason: Hypoglycemia Protocol Vancomycin/Sodium Chloride (Vancomycin 1 Gm/Ns 200 Ml) 1 gm in 200 mls @ 133.333 mls/hr IVPB Q12H [facility]; Protocol Stop: 06/24/18 03:01 Last Admin: 06/20/18 02:33 Dose: 133.333 mls/hr Metronidazole (Flagyl) 500 mg in 100 mls @ 100 mls/hr IVPB Q8H [facility]; Protocol Last Admin: 06/20/18 05:13 Dose: 100 mls/hr Influenza Virus Vaccine (Fluzone Quad [id number]) 60 mcg IM .ONCE ONE Stop: 06/21/18 10:01 Insulin Aspart (Novolog) 0 unit SC ACHS [facility]; Protocol Last Admin: 06/20/18 08:17 Dose: Not Given Lactobacillus Acidophilus (Bacid Acidophilus) 1 cap PO BID [facility] Last Admin: 06/20/18 09:23 Dose: Not Given Phytonadione (Vitamin K Tab) 5 mg PEG DAILY [facility] Stop: 06/23/18 12:46 Last Admin: 06/20/18 09:24 Dose: Not Given Pneumococcal Polyvalent Vaccine (Pneumovax 23 Vaccine) 0.5 ml IM .ONCE ONE Stop: 06/21/18 10:01 - Labs Labs: 06/20/18 07:21 06/20/18 07:21 PT 19.5 SECONDS (9.7-12.2) H 06/18/18 10:37 INR 1.8 06/18/18 10:37 APTT 36 SECONDS (21-34) H 06/18/18 10:37 - Constitutional Appears: No Acute Distress, Chronically Ill - Head Exam Head Exam: ATRAUMATIC, NORMAL INSPECTION, NORMOCEPHALIC - Eye Exam Eye Exam: Normal appearance - ENT Exam ENT Exam: Mucous Membranes Dry, Normal Exam - Neck Exam Neck Exam: Normal Inspection - Respiratory Exam Respiratory Exam: Decreased Breath Sounds, NORMAL BREATHING PATTERN - Cardiovascular Exam Cardiovascular Exam: REGULAR RHYTHM. absent: Tachycardia, Murmur - GI/Abdominal Exam GI & Abdominal Exam: Soft, Normal Bowel Sounds Additional comments: PEG tube dressed c/d/i, abdominal band located on abdomen - Extremities Exam Extremities Exam: Normal Inspection - Neurological Exam Neurological Exam: Altered, Awake, Motor Sensory Deficit. absent: Alert, Normal Gait, Oriented x3 - Skin Skin Exam: Dry, Intact, Normal Color Assessment and Plan - Assessment and Plan (Free Text) Plan: Leukocytosis, r/o sepsis -WBC 17.6-->15.2 today, afebrile -zosyn 3.375 q6 -vanco 1g q12 -Flagyl 500mg q8 -NS changed from 150 to 100 mls/hr -f/u vanc trough - 11.3 , F/U Vanc trough tomorrow -AMS, unsure of baseline -f/u lactate -- 0.6 -f/u procalcitonin - 69/81 -UTI/pyelo or enteritis suspected source of infection UTI/pyelonephritis -CT abd/pelvis shows possible colitis/rectal lesion. -gram neg rods -f/u urine - gram negative rods - AMS -continue monitor - f/u am labs and vitals Sacral Decubitus ulcer -stage 2, likely not source of leukocytosis -cont wound care -position changes q2 Transaminitis -worsening liver enzymes -- AST 112, ALT 180 -Hep panel negative -f/u CT for evidence of cholecystitis HTN, chronic -clonidine patch TD DM2 -Accuchecks ACHS -ISS low dose -glucerna PEG @50 Parkinsons -stable -palliative consult Ppx -heparin 5000 sc q12 -lactobacillus BID - GT - patient reports G tube pulled out at ---. vice president of procurement consulted to reinsert tube. Tube was replaced and inserted. Surgical team suggesting mittens to prevent patient from pulling out tube -Palliative care consult - Comfort care/Hospice was discussed and patient decided to go with conservative treatment. Code status discussed. Patient's family was hesitant and will re-discuss on Saturday Pain management: Toradol 15mg IVP Q6hrs PRN. Dispositions: Daughter Katelyn and lizz asked about any parkisons medication patient is taking on regular bases at home. Patient's daughter states patient takes medication for parkinsons but does not recall name, dosing or frequency of medication. Patient will bring all medications bottles in a bag. Please, note the name of medication, if any, that patient is taking for Parkinson disease. Plan discussed with Dr Mary Bautista, PGY-1 <Cliff Hernandez - Last Filed: 06/24/18 16:44> Objective - Vital Signs/Intake and Output Vital Signs (last 24 hours): Temp Pulse Resp BP Pulse Ox 98 F 82 20 108/63 100 06/24/18 15:20 06/24/18 15:20 06/24/18 15:20 06/24/18 15:20 06/24/18 15:20 Intake and Output: 06/24/18 06/24/18 06:59 18:59 Intake Total 1600 2900 Output Total 1300 2700 Balance 300 200 - Medications Medications: Current Medications Aspirin (Aspirin Chewable) 81 mg PEG DAILY [facility] Last Admin: 06/24/18 09:02 Dose: 81 mg Carbidopa/Levodopa (Sinemet) 1 tab PEG 5XD [facility] Last Admin: 06/24/18 14:02 Dose: 1 tab Clonidine HCl (Catapres Tts1 0.1 Mg/24 Hr) 1 patch TD Q7D@1000 [facility] Last Admin: 06/18/18 22:00 Dose: 1 patch Dextrose (Dextrose 50% Inj) 0 ml IV STAT PRN; Protocol PRN Reason: Hypoglycemia Protocol Dextrose (Glutose 15) 0 gm PO ONCE PRN; Protocol PRN Reason: Hypoglycemia Protocol Glucagon (Glucagen Diagnostic Kit) 0 mg IM STAT PRN; Protocol PRN Reason: Hypoglycemia Protocol Heparin Sodium (Porcine) (Heparin) 5,000 units SC Q12 [facility] Last Admin: 06/24/18 09:02 Dose: 5,000 units Home Med (Home Med) 2 unit PEG DAILY [facility] Dextrose (Dextrose 5% In Water 1000 Ml) 1,000 mls @ 0 mls/hr IV .Q0M PRN; Protocol PRN Reason: Hypoglycemia Protocol Meropenem 1 gm/ Sodium (Chloride) 100 mls @ 100 mls/hr IVPB Q8H [facility]; Protocol Last Admin: 06/24/18 12:12 Dose: 100 mls/hr Sodium Chloride (Sodium Chloride 0.9%) 1,000 mls @ 100 mls/hr IV .Q10H [facility] Last Admin: 06/24/18 10:11 Dose: 100 mls/hr Insulin Aspart (Novolog) 0 unit SC ACHS [facility]; Protocol Last Admin: 06/24/18 11:44 Dose: Not Given Ketorolac Tromethamine (Toradol) 15 mg IVP Q6 PRN PRN Reason: Pain, moderate (4-7) Last Admin: 06/23/18 12:12 Dose: 15 mg Lactobacillus Acidophilus (Bacid Acidophilus) 1 cap PO BID [facility] Last Admin: 06/24/18 09:02 Dose: 1 cap Metoprolol Tartrate (Lopressor) 50 mg PEG BID [facility] Last Admin: 06/24/18 09:05 Dose: 50 mg Mirtazapine (Remeron) 15 mg PO HS [facility] Last Admin: 06/23/18 22:32 Dose: 15 mg - Labs Labs: 06/24/18 07:59 06/24/18 07:59 PT 16.1 SECONDS (9.7-12.2) H 06/22/18 08:38 INR 1.5 06/22/18 08:38 APTT 36 SECONDS (21-34) H 06/18/18 10:37 Attending/Attestation - Attestation I have personally seen and examined this patient.: Yes I have fully participated in the care of the patient.: Yes I have reviewed all pertinent clinical information, including history, physical exam and plan: Yes Notes (Text): Seen and examined ,no fever,no dictress ,continue tibe feeding,s/p GT replacement. Patient is confused due to dementia Continue Zosyn,vanco and flagyl. Advance directives dicussed with family. full code now follow c/s I agree with the resident's documentations
--- NOTE | 2018-06-20 13:17 | CP.PCM.CON ---
History of Present Illness - History of Present Illness History of Present Illness: Palliative consult requested by Doctor Bryant for goals of care discussion Patient is a 83 yo male admitted from [facility] where he was sent after being treated for sepsis at [facility]. Sepsis was 2nd to infected sacral pressure so res. On admission WBC 17.6. Large count of WBCs and RBCs seen in urine. Patient is afebrile. Vanco and Zosyn IV on board. Patient is aphasic with PEG tube feedings. Patient keeps his eyes closed and react only upon tactile stimuli by grimacing his eyes. Doctor Za has informed me that patient's PMD had suggested hospice care for this patient. After few phone calls I got in touch with patient's daugher Katelyn. Family meeting to discuss comfort care scheduled for 2 pm today. PMH: DM, anemia, HTN, Parkinsons, PEG Soc. Hx: , from [facility] Fam. Hx: brother with DM Review of Systems - Review of Systems All systems: reviewed and no additional remarkable complaints except Review of Systems: ROS unobtainable from patient due to condition. ROS obtained from nursing. per nursing, patient remains non verbal and afebrile. Past Patient History - Past Medical History & Family History Past Medical History?: Yes - Past Social History Smoking Status: Never Smoked - CARDIAC Hx Hypertension: Yes - PULMONARY Hx Respiratory Disorders: No - NEUROLOGICAL Hx Dementia: Yes Hx Parkinson's Disease: Yes - HEENT Hx HEENT Problems: Yes Hx Difficulty Chewing: Yes - RENAL Hx Chronic Kidney Disease: No - ENDOCRINE/METABOLIC Hx Diabetes Mellitus Type 2: Yes - HEMATOLOGICAL/ONCOLOGICAL Hx Anemia: Yes - INTEGUMENTARY Hx Dermatological Problems: Yes Other/Comment: skin breakdown sacrum - MUSCULOSKELETAL/RHEUMATOLOGICAL Hx Musculoskeletal Disorders: Yes Hx Falls: No Hx Unsteady Gait: Yes Other/Comment: bed bound - GASTROINTESTINAL Hx Gastrointestinal Disorders: No Other/Comment: PEG tube - GENITOURINARY/GYNECOLOGICAL Hx Genitourinary Disorders: Yes Hx Incontinence: Yes - PSYCHIATRIC Hx Substance Use: No - SURGICAL HISTORY Hx Surgeries: Yes - ANESTHESIA Hx Anesthesia: Yes Hx Anesthesia Reactions: No Meds Allergies/Adverse Reactions: Allergies Allergy/AdvReac Type Severity Reaction Status Date / Time No Known Allergies Allergy Verified 05/27/18 19:08 - Medications Medications: Current Medications Clonidine HCl (Catapres Tts1 0.1 Mg/24 Hr) 1 patch TD Q7D@1000 [facility]ATERINA Last Admin: 06/18/18 22:00 Dose: 1 patch Dextrose (Dextrose 50% Inj) 0 ml IV STAT PRN; Protocol PRN Reason: Hypoglycemia Protocol Dextrose (Glutose 15) 0 gm PO ONCE PRN; Protocol PRN Reason: Hypoglycemia Protocol Glucagon (Glucagen Diagnostic Kit) 0 mg IM STAT PRN; Protocol PRN Reason: Hypoglycemia Protocol Heparin Sodium (Porcine) (Heparin) 5,000 units SC Q12 KATER[facility] Last Admin: 06/20/18 09:22 Dose: 5,000 units Sodium Chloride (Sodium Chloride 0.9%) 1,000 mls @ 150 mls/hr IV .Q6H40M KATERINA Last Admin: 06/20/18 09:24 Dose: Not Given Piperacillin Sod/Tazobactam (Sod 3.375 gm/ Sodium Chloride) 100 mls @ 200 mls/hr IVPB Q6H KATERINA; Protocol Last Admin: 06/20/18 06:17 Dose: 200 mls/hr Dextrose (Dextrose 5% In Water 1000 Ml) 1,000 mls @ 0 mls/hr IV .Q0M PRN; Protocol PRN Reason: Hypoglycemia Protocol Vancomycin/Sodium Chloride (Vancomycin 1 Gm/Ns 200 Ml) 1 gm in 200 mls @ 133.333 mls/hr IVPB Q12H KATERINA; Protocol Stop: 06/24/18 03:01 Last Admin: 06/20/18 02:33 Dose: 133.333 mls/hr Metronidazole (Flagyl) 500 mg in 100 mls @ 100 mls/hr IVPB Q8H [facility]ATER[facility]; Protocol Last Admin: 06/20/18 05:13 Dose: 100 mls/hr Influenza Virus Vaccine (Fluzone Quad [id number]) 60 mcg IM .ONCE ONE Stop: 06/21/18 10:01 Insulin Aspart (Novolog) 0 unit SC ACHS [facility]; Protocol Last Admin: 06/20/18 08:17 Dose: Not Given Lactobacillus Acidophilus (Bacid Acidophilus) 1 cap PO BID [facility] Last Admin: 06/20/18 09:23 Dose: Not Given Phytonadione (Vitamin K Tab) 5 mg PEG DAILY [facility] Stop: 06/23/18 12:46 Last Admin: 06/20/18 09:24 Dose: Not Given Pneumococcal Polyvalent Vaccine (Pneumovax 23 Vaccine) 0.5 ml IM .ONCE ONE Stop: 06/21/18 10:01 Physical Exam - Constitutional Appears: Chronically Ill - Head Exam Head Exam: ATRAUMATIC, NORMAL INSPECTION, NORMOCEPHALIC - Eye Exam Eye Exam: EOMI, Normal appearance, PERRL Pupil Exam: NORMAL ACCOMODATION, PERRL - ENT Exam ENT Exam: Mucous Membranes Dry, Normal Exam - Neck Exam Neck exam: Positive for: Normal Inspection - Respiratory Exam Respiratory Exam: Decreased Breath Sounds, NORMAL BREATHING PATTERN - Cardiovascular Exam Cardiovascular Exam: Tachycardia - GI/Abdominal Exam Additional comments: PEG - Rectal Exam Rectal Exam: Deferred - Exam Exam: NORMAL INSPECTION - Extremities Exam Extremities exam: Positive for: normal inspection Additional comments: Limited ROM. poor skin turgor - Back Exam Additional comments: Left and fight jip pressure sores - Neurological Exam Neurological exam: Altered, Motor Sensory Deficit - Psychiatric Exam Psychiatric exam: Flat Affect - Skin Skin Exam: Mottled, Normal Color Results - Vital Signs Recent Vital Signs: Last Vital Signs Temp 97.5 F L 06/20/18 07:41 Pulse 75 06/20/18 07:41 Resp 20 06/20/18 07:41 BP 117/78 06/20/18 07:41 Pulse Ox 100 06/20/18 07:41 - Labs Result Diagrams: 06/20/18 07:21 06/20/18 07:21 Labs: Laboratory Results - last 24 hr 06/19/18 06/19/18 06/19/18 12:11 13:14 16:40 WBC RBC Hgb Hct MCV MCH MCHC RDW Plt Count MPV Neut % (Auto) Lymph % (Auto) [place] % (Auto) Eos % (Auto) Baso % (Auto) Neut # (Auto) Lymph # (Auto) [place] # (Auto) Eos # (Auto) Baso # (Auto) Neutrophils % (Manual) Band Neutrophils % Lymphocytes % (Manual) Monocytes % (Manual) Eosinophils % (Manual) Platelet Estimate Hypochromasia (manual) Poikilocytosis (manual Anisocytosis (manual) Puncture Site Done by pCO2 37 pO2 176 H HCO3 25.4 ABG pH 7.43 ABG Total CO2 25.7 ABG O2 Saturation 99.6 H ABG Base Excess 0.5 Nader Test Pos ABG Potassium 3.5 L Sodium 146.0 Chloride 117.0 H Glucose 130 H Lactate 0.6 L Potassium Carbon Dioxide Anion Gap BUN Creatinine Est GFR ( Amer) Est GFR (Non-Af Amer) POC Glucose (mg/dL) 120 H Random Glucose Calcium Phosphorus Magnesium Total Bilirubin AST ALT Alkaline Phosphatase Total Protein Albumin Globulin Albumin/Globulin Ratio Procalcitonin 69.81 H Arterial Blood Potassium 3.5 L 06/19/18 06/20/18 06/20/18 21:11 07:21 07:21 WBC 15.2 H RBC 3.29 L Hgb 8.8 L Hct 27.0 L MCV 82.0 MCH 26.7 L MCHC 32.6 L RDW 15.3 H Plt Count 310 MPV 7.7 Neut % (Auto) 80.4 H Lymph % (Auto) 9.8 L [place] % (Auto) 7.8 Eos % (Auto) 1.8 Baso % (Auto) 0.2 Neut # (Auto) 12.2 H Lymph # (Auto) 1.5 [place] # (Auto) 1.2 H Eos # (Auto) 0.3 Baso # (Auto) 0.0 Neutrophils % (Manual) 82 H Band Neutrophils % 1 Lymphocytes % (Manual) 7 L Monocytes % (Manual) 6 Eosinophils % (Manual) 4 Platelet Estimate Normal Hypochromasia (manual) Slight Poikilocytosis (manual Slight Anisocytosis (manual) Slight Puncture Site pCO2 pO2 HCO3 ABG pH ABG Total CO2 ABG O2 Saturation ABG Base Excess Nader Test ABG Potassium Sodium 144 Chloride 111 H Glucose Lactate Potassium 3.7 Carbon Dioxide 24 Anion Gap 13 BUN 20 Creatinine 0.9 Est GFR ( Amer) > 60 Est GFR (Non-Af Amer) > 60 POC Glucose (mg/dL) 109 Random Glucose 97 Calcium 9.0 Phosphorus 3.2 Magnesium 2.0 Total Bilirubin 0.3 AST 112 H D ALT 180 H D Alkaline Phosphatase 185 H Total Protein 6.0 L Albumin 2.5 L Globulin 3.4 Albumin/Globulin Ratio 0.7 L Procalcitonin Arterial Blood Potassium 06/20/18 06/20/18 08:14 11:02 WBC RBC Hgb Hct MCV MCH MCHC RDW Plt Count MPV Neut % (Auto) Lymph % (Auto) [place] % (Auto) Eos % (Auto) Baso % (Auto) Neut # (Auto) Lymph # (Auto) [place] # (Auto) Eos # (Auto) Baso # (Auto) Neutrophils % (Manual) Band Neutrophils % Lymphocytes % (Manual) Monocytes % (Manual) Eosinophils % (Manual) Platelet Estimate Hypochromasia (manual) Poikilocytosis (manual Anisocytosis (manual) Puncture Site pCO2 pO2 HCO3 ABG pH ABG Total CO2 ABG O2 Saturation ABG Base Excess Nader Test ABG Potassium Sodium Chloride Glucose Lactate Potassium Carbon Dioxide Anion Gap BUN Creatinine Est GFR ( Amer) Est GFR (Non-Af Amer) POC Glucose (mg/dL) 96 89 Random Glucose Calcium Phosphorus Magnesium Total Bilirubin AST ALT Alkaline Phosphatase Total Protein Albumin Globulin Albumin/Globulin Ratio Procalcitonin Arterial Blood Potassium Assessment & Plan - Assessment and Plan (Free Text) Assessment: Palliative consult Full Code, no advance directive on chart, PPS 10% I reviewed medical records, all diagnostic studies and examined patient in the bed Goals of care discussed at family meeting. meeting attended by patient's two daughters, brother,sister in law, grandson, Doctor Laurita Hernandez from and myself. Patient's clinical condition reviewed and recent findings in terms of infection related to it. We elicited more about patient's condition in recent few months and family perception of his condition. Family agreed that they saw steady declining in patient's condition since March of this year. Patient was ambulatory around the house with some assistance, than in May he got weak unable to walk and soon ended at [facility] with sepsis. Comfort care discussed as one of options of care, given patient's condition. After long and detailed discussion , family was not able to decide on Hospice care. They felt that they would proceed with conservative treatments. Sheree was able to assist family with options of TORI vs LTC. Family was leaning more towards the home discharge as they did not like the LTC for their father. Code status discussed. I reviewed POLST and offered ample of information about DNR/DNI. Family was hesitant deciding on it at this time. We agreed to meet on Saturday again and re visit topics we discussed today Impression * Chronically ill male * Sepsis * Aphasia * Pressures sores to both hips * Limited mobility * Unable to discuss goals of care * family advocates for patient requesting Full Code * Family prefers patient is ultimately discharged home once he gets stable enough to be discharged Suggestions * Continue IV antibiotics * promote skin integrity * Refer to Wound care for pressure sores * Aspiration precautions * Full Code I will meet with family on Saturday o continue goals of care discussion. Advance care planing time 65 min
--- NOTE | 2018-06-20 18:07 | CP.PCM.CON ---
History of Present Illness - History of Present Illness History of Present Illness: 83 year old male with past medical history significant for HTN, DM, Parkinson's dementia presents with fever and gram negative bacteremia secondary to UTI Patient was brought in from the rehab facility having recently been discharged 06/13/18 from [facility] after a hospital course where he was diagnosed with Severe Sepsis secondary to suspected sacral decubitus ulcer. At that time wound c/s was positive for Klebs and Pseudomonas sens to Zosyn Patient is currently nonverbal and not able to provide a review of systems but does communicate with daughters through tactile maneuvers with hands PMHx: Parkinson's, DM2, HTN PSHx: G-tube placed on prior hospital admission at [facility] (06/06/18) FamHx: Brother had DM2 Social Hx: no tobacco hx, remote alcohol hx - unsure of amount, recently moved from [place] - now living with his daughter at home Allergies: NKDA Review of Systems - Review of Systems Systems not reviewed;Unavailable: Altered Mental Status All systems: reviewed and no additional remarkable complaints except - Constitutional Constitutional: As Per HPI - EENT Eyes: absent: As Per HPI, Blind Spots, Blurred Vision, Change in Vision, Decreased Night Vision, Diplopia, Discharge, Dry Eye, Exophthalmos, Floaters, Irritation, Itchy Eyes, Loss of Peripheral Vision, Pain, Photophobia, Requires Corrective Lenses, Sees Flashes, Spots in Vision, Tunnel Vision, Other Visual Disturbances, Loss of Vision, Other Ears: absent: As Per HPI, Decreased Hearing, Ear Discharge, Ear Pain, Tinnitus, Abnormal Hearing, Disequilibrium, Dizziness, Other Nose/Mouth/Throat: absent: As Per HPI, Epistaxis, Nasal Congestion, Nasal Discharge, Nasal Obstruction, Nasal Trauma, Nose Pain, Post Nasal Drip, Sinus Pain, Sinus Pressure, Bleeding Gums, Change in Voice, Dental Pain, Dry Mouth, Dysphagia, Halitosis, Hoarsness, Lip Swelling, Mouth Lesions, Mouth Pain, Odynophagia, Sore Throat, Throat Swelling, Tongue Swelling, Facial Pain, Neck Pain, Neck Mass, Other - Cardiovascular Cardiovascular: absent: As Per HPI, Acrocyanosis, Chest Pain, Chest Pain at Rest, Chest Pain with Activity, Claudication, Diaphoresis, Dyspnea, Dyspnea on Exertion, Edema, Irregular Heart Rhythm, Pain Radiating to Arm/Neck/Jaw, Leg Edema, Leg Ulcers, Lightheadedness, Orthopnea, Palpitations, Paroxysmal Nocturnal Dyspnea, Pedal Edema, Radiating Pain, Rapid Heart Rate, Slow Heart Rate, Syncope, Other - Respiratory Respiratory: absent: As Per HPI, Cough, Dyspnea, Hemoptysis, Dyspnea on Exertion, Wheezing, Snoring, Stridor, Pain on Inspiration, Chest Congestion, Excessive Mucous Production, Change in Mucous Color, Pain with Coughing, Other - Gastrointestinal Gastrointestinal: absent: As Per HPI, Abdominal Pain, Belching, Bloating, Change in Bowel Habits, Change in Stool Character, Coffee Ground Emesis, Constipation, Cramping, Diarrhea, Dyspepsia, Dysphagia, Early Satiety, Excessive Flatus, Fecal Incontinence, Heartburn, Hematemesis, Hematochezia, Loose Stools, Melena, Nause a, Odynophagia, Temesmus, Vomiting, Other - Genitourinary Genitourinary: As Per HPI - Musculoskeletal Musculoskeletal: As Per HPI, Limited Range of Motion - Integumentary Integumentary: Skin Pain, Wounds - Neurological Neurological: As Per HPI - Psychiatric Psychiatric: As Per HPI - Endocrine Endocrine: absent: As Per HPI, Change in Body Appearance, Change in Libido, Cold Intolorance, Deepening of Voice, Excessive Sweating, Fatigue, Flushing, Heat Intolorance, Increase in Ring/Shoe/Hat Size, Palpitations, Polydipsia, Polyphagia, Polyuria, Other - Hematologic/Lymphatic Hematologic: absent: As Per HPI, Easy Bleeding, Easy Bruising, Lymphadenopathy, Other Past Patient History - Past Medical History & Family History Past Medical History?: Yes - Past Social History Smoking Status: Never Smoked - CARDIAC Hx Hypertension: Yes - PULMONARY Hx Respiratory Disorders: No - NEUROLOGICAL Hx Dementia: Yes Hx Parkinson's Disease: Yes - HEENT Hx HEENT Problems: Yes Hx Difficulty Chewing: Yes - RENAL Hx Chronic Kidney Disease: No - ENDOCRINE/METABOLIC Hx Diabetes Mellitus Type 2: Yes - HEMATOLOGICAL/ONCOLOGICAL Hx Anemia: Yes - INTEGUMENTARY Hx Dermatological Problems: Yes Other/Comment: skin breakdown sacrum - MUSCULOSKELETAL/RHEUMATOLOGICAL Hx Musculoskeletal Disorders: Yes Hx Falls: No Hx Unsteady Gait: Yes Other/Comment: bed bound - GASTROINTESTINAL Hx Gastrointestinal Disorders: No Other/Comment: PEG tube - GENITOURINARY/GYNECOLOGICAL Hx Genitourinary Disorders: Yes Hx Incontinence: Yes - PSYCHIATRIC Hx Substance Use: No - SURGICAL HISTORY Hx Surgeries: Yes - ANESTHESIA Hx Anesthesia: Yes Hx Anesthesia Reactions: No Meds Allergies/Adverse Reactions: Allergies Allergy/AdvReac Type Severity Reaction Status Date / Time No Known Allergies Allergy Verified 05/27/18 19:08 - Medications Medications: Current Medications Clonidine HCl (Catapres Tts1 0.1 Mg/24 Hr) 1 patch TD Q7D@1000 KATERINA Last Admin: 06/18/18 22:00 Dose: 1 patch Dextrose (Dextrose 50% Inj) 0 ml IV STAT PRN; Protocol PRN Reason: Hypoglycemia Protocol Dextrose (Glutose 15) 0 gm PO ONCE PRN; Protocol PRN Reason: Hypoglycemia Protocol Glucagon (Glucagen Diagnostic Kit) 0 mg IM STAT PRN; Protocol PRN Reason: Hypoglycemia Protocol Heparin Sodium (Porcine) (Heparin) 5,000 units SC Q12 KATERINA Last Admin: 06/20/18 09:22 Dose: 5,000 units Piperacillin Sod/Tazobactam (Sod 3.375 gm/ Sodium Chloride) 100 mls @ 200 mls/hr IVPB Q6H [facility]; Protocol Last Admin: 06/20/18 12:15 Dose: 200 mls/hr Dextrose (Dextrose 5% In Water 1000 Ml) 1,000 mls @ 0 mls/hr IV .Q0M PRN; Protocol PRN Reason: Hypoglycemia Protocol Vancomycin/Sodium Chloride (Vancomycin 1 Gm/Ns 200 Ml) 1 gm in 200 mls @ 133.333 mls/hr IVPB Q12H [facility]ATER[facility]; Protocol Stop: 06/24/18 03:01 Last Admin: 06/20/18 15:55 Dose: 133.333 mls/hr Metronidazole (Flagyl) 500 mg in 100 mls @ 100 mls/hr IVPB Q8H [facility]; Protocol Last Admin: 06/20/18 13:56 Dose: 100 mls/hr Sodium Chloride (Sodium Chloride 0.9%) 1,000 mls @ 100 mls/hr IV .Q10H KATERINA Influenza Virus Vaccine (Fluzone Quad [id number]) 60 mcg IM .ONCE ONE Stop: 06/21/18 10:01 Insulin Aspart (Novolog) 0 unit SC ACHS [facility]; Protocol Last Admin: 06/20/18 12:20 Dose: Not Given Lactobacillus Acidophilus (Bacid Acidophilus) 1 cap PO BID [facility] Last Admin: 06/20/18 09:23 Dose: Not Given Phytonadione (Vitamin K Tab) 5 mg PEG DAILY [facility] Stop: 06/23/18 12:46 Last Admin: 06/20/18 09:24 Dose: Not Given Pneumococcal Polyvalent Vaccine (Pneumovax 23 Vaccine) 0.5 ml IM .ONCE ONE Stop: 06/21/18 10:01 Physical Exam - Constitutional Appears: Non-toxic, Chronically Ill - Head Exam Head Exam: NORMOCEPHALIC - Eye Exam Eye Exam: PERRL. absent: Scleral icterus - ENT Exam ENT Exam: Mucous Membranes Dry - Neck Exam Neck exam: Negative for: Lymphadenopathy - Respiratory Exam Respiratory Exam: Decreased Breath Sounds, Rhonchi - Cardiovascular Exam Cardiovascular Exam: REGULAR RHYTHM, +S1, +S2 - GI/Abdominal Exam GI & Abdominal Exam: Diminished Bowel Sounds, Soft. absent: Tenderness - Rectal Exam Rectal Exam: Deferred - Exam Exam: NORMAL INSPECTION - Extremities Exam Extremities exam: Positive for: pedal pulses present. Negative for: calf tenderness, pedal edema, tenderness - Back Exam Back exam: absent: CVA tenderness (L), CVA tenderness (R) - Neurological Exam Neurological exam: Alert, Altered, CN II-XII Intact - Psychiatric Exam Psychiatric exam: Depressed - Skin Skin Exam: Dry Additional comments: sacral ulcer III Results - Vital Signs Recent Vital Signs: Last Vital Signs Temp 97.4 F L 06/20/18 16:00 Pulse 87 06/20/18 16:00 Resp 20 06/20/18 16:00 BP 197/81 H 06/20/18 16:00 Pulse Ox 100 06/20/18 16:00 - Labs Result Diagrams: 06/20/18 07:21 06/20/18 07:21 Labs: Laboratory Results - last 24 hr 06/19/18 06/20/18 06/20/18 21:11 07:21 07:21 WBC 15.2 H RBC 3.29 L Hgb 8.8 L Hct 27.0 L MCV 82.0 MCH 26.7 L MCHC 32.6 L RDW 15.3 H Plt Count 310 MPV 7.7 Neut % (Auto) 80.4 H Lymph % (Auto) 9.8 L [place] % (Auto) 7.8 Eos % (Auto) 1.8 Baso % (Auto) 0.2 Neut # (Auto) 12.2 H Lymph # (Auto) 1.5 [place] # (Auto) 1.2 H Eos # (Auto) 0.3 Baso # (Auto) 0.0 Neutrophils % (Manual) 82 H Band Neutrophils % 1 Lymphocytes % (Manual) 7 L Monocytes % (Manual) 6 Eosinophils % (Manual) 4 Platelet Estimate Normal Hypochromasia (manual) Slight Poikilocytosis (manual Slight Anisocytosis (manual) Slight Sodium 144 Potassium 3.7 Chloride 111 H Carbon Dioxide 24 Anion Gap 13 BUN 20 Creatinine 0.9 Est GFR ( Amer) > 60 Est GFR (Non-Af Amer) > 60 POC Glucose (mg/dL) 109 Random Glucose 97 Calcium 9.0 Phosphorus 3.2 Magnesium 2.0 Total Bilirubin 0.3 AST 112 H D ALT 180 H D Alkaline Phosphatase 185 H Total Protein 6.0 L Albumin 2.5 L Globulin 3.4 Albumin/Globulin Ratio 0.7 L 06/20/18 06/20/18 06/20/18 08:14 11:02 16:05 WBC RBC Hgb Hct MCV MCH MCHC RDW Plt Count MPV Neut % (Auto) Lymph % (Auto) [place] % (Auto) Eos % (Auto) Baso % (Auto) Neut # (Auto) Lymph # (Auto) [place] # (Auto) Eos # (Auto) Baso # (Auto) Neutrophils % (Manual) Band Neutrophils % Lymphocytes % (Manual) Monocytes % (Manual) Eosinophils % (Manual) Platelet Estimate Hypochromasia (manual) Poikilocytosis (manual Anisocytosis (manual) Sodium Potassium Chloride Carbon Dioxide Anion Gap BUN Creatinine Est GFR ( Amer) Est GFR (Non-Af Amer) POC Glucose (mg/dL) 96 89 120 H Random Glucose Calcium Phosphorus Magnesium Total Bilirubin AST ALT Alkaline Phosphatase Total Protein Albumin Globulin Albumin/Globulin Ratio Assessment & Plan (1) UTI (urinary tract infection) Status: Acute (2) Bacteremia Status: Acute (3) Dehydration Status: Acute (4) Fever Status: Acute (5) Leukocytosis Status: Acute (6) Diabetes mellitus Status: Chronic (7) HTN (hypertension) Status: Chronic (8) Parkinson's disease dementia Status: Chronic - Assessment and Plan (Free Text) Assessment: cont current IV antibiotics concern for resistance - await sensitivity add Merrem if fever , leukocytosis persists
[2018-06-21] MEDS: Piperacillin/Tazobact 3.375 GM in Sodium Chloride 100 ML IVPB SCH ×4 (00:25→19:15)
[2018-06-21 04:03] LABS: BASO % 0.4 % (0.0-2.0); EOS # 0.2 K/uL (0.0-0.7); HEMOGLOBIN 8.5 g/dL (12.0-18.0); LYMPH # 1.6 K/uL (1.0-4.3); LYMPH % 17.1 % (20.0-40.0); MEAN CELL VOLUME 81.4 fL (80.0-94.0); MEAN CORPUSCULAR HEMOGLOBIN 26.7 pg (27.0-31.0); MEAN CORPUSCULAR HGB CONC 32.8 g/dL (33.0-37.0); MEAN PLATELET VOLUME 7.4 fL (7.2-11.7); MONO # 0.9 K/uL (0.0-0.8); MONO % 9.5 % (0.0-10.0); NEUT # 6.7 K/uL (1.8-7.0); NRBC % 0.1 % (0.0-2.0); RBC 3.18 Mil/uL (4.40-5.90); RED CELL DISTRIBUTION WIDTH 15.2 % (11.5-14.5); WHITE BLOOD COUNT 9.4 K/uL (4.8-10.8)
[2018-06-21] MEDS: Sodium Chloride 0.9% 1,000 ML IV SCH ×3 (04:15→23:45)
[2018-06-21 04:23] LABS: ALB/GLOB RATIO 0.8 (1.0-2.1); ALBUMIN 2.4 g/dL (3.5-5.0); ALT/SGPT 124 U/L (21-72); AST/SGOT 43 U/L (17-59); BLOOD UREA NITROGEN 17 mg/dL (9-20); CALCIUM 8.4 mg/dl (8.6-10.4); GFR NON-AFRICAN AMERICAN > 60
[2018-06-21] MEDS: Vancomycin 1 gm/NS 200 ml 1 GM/200 ML BAG IVPB SCH ×2 (04:30→14:01)
[2018-06-21] MEDS: metroNIDAZOLE IV 500 mg/100 ml 500 MG/100 ML BAG IVPB SCH ×2 (06:22→13:01)
--- NOTE | 2018-06-21 06:38 | CP.PCM.PN ---
<Marlin Galicia - Last Filed: 06/21/18 08:02> Subjective - Date & Time of Evaluation Date of Evaluation: 06/21/18 Time of Evaluation: 06:37 - Subjective Subjective: Pt examined at bedside. No acute events overnight. Pt is baseline non-verbal, ROS unobtainable. Objective - Vital Signs/Intake and Output Vital Signs (last 24 hours): Temp Pulse Resp BP Pulse Ox 98.2 F 76 20 160/63 H 99 06/20/18 23:36 06/20/18 23:36 06/20/18 23:36 06/20/18 23:36 06/20/18 23:36 Intake and Output: 06/20/18 06/21/18 18:59 06:59 Intake Total 3280 1020 Output Total 2400 900 Balance 880 120 - Medications Medications: Current Medications Clonidine HCl (Catapres Tts1 0.1 Mg/24 Hr) 1 patch TD Q7D@1000 [facility] Last Admin: 06/18/18 22:00 Dose: 1 patch Dextrose (Dextrose 50% Inj) 0 ml IV STAT PRN; Protocol PRN Reason: Hypoglycemia Protocol Dextrose (Glutose 15) 0 gm PO ONCE PRN; Protocol PRN Reason: Hypoglycemia Protocol Glucagon (Glucagen Diagnostic Kit) 0 mg IM STAT PRN; Protocol PRN Reason: Hypoglycemia Protocol Heparin Sodium (Porcine) (Heparin) 5,000 units SC Q12 [facility] Last Admin: 06/20/18 21:13 Dose: 5,000 units Piperacillin Sod/Tazobactam (Sod 3.375 gm/ Sodium Chloride) 100 mls @ 200 mls/hr IVPB Q6H [facility]; Protocol Last Admin: 06/21/18 00:25 Dose: 200 mls/hr Dextrose (Dextrose 5% In Water 1000 Ml) 1,000 mls @ 0 mls/hr IV .Q0M PRN; Protocol PRN Reason: Hypoglycemia Protocol Vancomycin/Sodium Chloride (Vancomycin 1 Gm/Ns 200 Ml) 1 gm in 200 mls @ 1 33.333 mls/hr IVPB Q12H [facility]; Protocol Stop: 06/24/18 03:01 Last Admin: 06/21/18 04:30 Dose: 133.333 mls/hr Metronidazole (Flagyl) 500 mg in 100 mls @ 100 mls/hr IVPB Q8H [facility]; Protocol Last Admin: 06/21/18 06:22 Dose: 100 mls/hr Sodium Chloride (Sodium Chloride 0.9%) 1,000 mls @ 100 mls/hr IV .Q10H [facility] Last Admin: 06/21/18 04:15 Dose: 100 mls/hr Influenza Virus Vaccine (Fluzone Quad [id number]) 60 mcg IM .ONCE ONE Stop: 06/21/18 10:01 Insulin Aspart (Novolog) 0 unit SC ACHS [facility]; Protocol Last Admin: 06/20/18 21:19 Dose: Not Given Ketorolac Tromethamine (Toradol) 15 mg IVP Q6 PRN PRN Reason: Pain, moderate (4-7) Last Admin: 06/20/18 19:39 Dose: 15 mg Lactobacillus Acidophilus (Bacid Acidophilus) 1 cap PO BID [facility] Last Admin: 06/20/18 18:55 Dose: 1 cap Phytonadione (Vitamin K Tab) 5 mg PEG DAILY [facility] Stop: 06/23/18 12:46 Last Admin: 06/20/18 09:24 Dose: Not Given Pneumococcal Polyvalent Vaccine (Pneumovax 23 Vaccine) 0.5 ml IM .ONCE ONE Stop: 06/21/18 10:01 - Labs Labs: 06/21/18 04:00 06/21/18 04:00 PT 19.5 SECONDS (9.7-12.2) H 06/18/18 10:37 INR 1.8 06/18/18 10:37 APTT 36 SECONDS (21-34) H 06/18/18 10:37 - Constitutional Appears: Non-toxic - Head Exam Head Exam: ATRAUMATIC, NORMAL INSPECTION, NORMOCEPHALIC - ENT Exam ENT Exam: Mucous Membranes Dry - Neck Exam Neck Exam: Normal Inspection - Respiratory Exam Respiratory Exam: Decreased Breath Sounds, Clear to Ausculation Bilateral, NORMAL BREATHING PATTERN - Cardiovascular Exam Cardiovascular Exam: REGULAR RHYTHM. absent: Tachycardia, Murmur - GI/Abdominal Exam GI & Abdominal Exam: Soft, Normal Bowel Sounds. absent: Distended, Tenderness - Neurological Exam Neurological Exam: Awake. absent: Alert, Oriented x3 - Skin Skin Exam: Dry, Intact, Normal Color, Warm Assessment and Plan - Assessment and Plan (Free Text) Assessment: Leukocytosis, r/o sepsis -WBC trending down, afebrile -zosyn 3.375 q6 -vanco 1g q12 -Flagyl 500mg q8 -NS @100/hr -f/u vanc trough 13.8 -AMS, daughters confirm deterioration -UTI/pyelo or enteritis suspected source of infection UTI/pyelonephritis -CT abd/pelvis shows possible colitis/rectal lesion. -blood cx-gram neg rods -urine-gram negative rods - AMS -continue monitor - f/u am labs and vitals -spoke w/ daughter Katelyn who will bring all home meds today Sacral Decubitus ulcer -stage 2, likely not source of leukocytosis -cont wound care -position changes q2 Transaminitis -improving -Hep panel negative -f/u CT for evidence of cholecystitis HTN, chronic -clonidine patch TD DM2 -Accuchecks ACHS -ISS low dose -glucerna PEG @50 Parkinsons -stable -f/u home meds w/ daughter -palliative consult Ppx -heparin 5000 sc q12 -lactobacillus BID -Palliative care consult - No consensus, fam will re-eval Saturday <Cliff Hernandez - Last Filed: 06/24/18 16:25> Objective - Vital Signs/Intake and Output Vital Signs (last 24 hours): Temp Pulse Resp BP Pulse Ox 98 F 82 20 108/63 100 06/24/18 15:20 06/24/18 15:20 06/24/18 15:20 06/24/18 15:20 06/24/18 15:20 Intake and Output: 06/24/18 06/24/18 06:59 18:59 Intake Total 1600 2900 Output Total 1300 2700 Balance 300 200 - Medications Medications: Current Medications Aspirin (Aspirin Chewable) 81 mg PEG DAILY [facility] Last Admin: 06/24/18 09:02 Dose: 81 mg Carbidopa/Levodopa (Sinemet) 1 tab PEG 5XD [facility] Last Admin: 06/24/18 14:02 Dose: 1 tab Clonidine HCl (Catapres Tts1 0.1 Mg/24 Hr) 1 patch TD Q7D@1000 [facility] Last Admin: 06/18/18 22:00 Dose: 1 patch Dextrose (Dextrose 50% Inj) 0 ml IV STAT PRN; Protocol PRN Reason: Hypoglycemia Protocol Dextrose (Glutose 15) 0 gm PO ONCE PRN; Protocol PRN Reason: Hypoglycemia Protocol Glucagon (Glucagen Diagnostic Kit) 0 mg IM STAT PRN; Protocol PRN Reason: Hypoglycemia Protocol Heparin Sodium (Porcine) (Heparin) 5,000 units SC Q12 [facility] Last Admin: 06/24/18 09:02 Dose: 5,000 units Home Med (Home Med) 2 unit PEG DAILY [facility] Dextrose (Dextrose 5% In Water 1000 Ml) 1,000 mls @ 0 mls/hr IV .Q0M PRN; Protocol PRN Reason: Hypoglycemia Protocol Meropenem 1 gm/ Sodium (Chloride) 100 mls @ 100 mls/hr IVPB Q8H [facility]; Protocol Last Admin: 06/24/18 12:12 Dose: 100 mls/hr Sodium Chloride (Sodium Chloride 0.9%) 1,000 mls @ 100 mls/hr IV .Q10H [facility] Last Admin: 06/24/18 10:11 Dose: 100 mls/hr Insulin Aspart (Novolog) 0 unit SC ACHS [facility]; Protocol Last Admin: 06/24/18 11:44 Dose: Not Given Ketorolac Tromethamine (Toradol) 15 mg IVP Q6 PRN PRN Reason: Pain, moderate (4-7) Last Admin: 06/23/18 12:12 Dose: 15 mg Lactobacillus Acidophilus (Bacid Acidophilus) 1 cap PO BID [facility] Last Admin: 06/24/18 09:02 Dose: 1 cap Metoprolol Tartrate (Lopressor) 50 mg PEG BID [facility] Last Admin: 06/24/18 09:05 Dose: 50 mg Mirtazapine (Remeron) 15 mg PO HS [facility] Last Admin: 06/23/18 22:32 Dose: 15 mg - Labs Labs: 06/24/18 07:59 06/24/18 07:59 PT 16.1 SECONDS (9.7-12.2) H 06/22/18 08:38 INR 1.5 06/22/18 08:38 APTT 36 SECONDS (21-34) H 06/18/18 10:37 Attending/Attestation - Attestation I have personally seen and examined this patient.: Yes I have fully participated in the care of the patient.: Yes I have reviewed all pertinent clinical information, including history, physical exam and plan: Yes Notes (Text): Seen and examined,no discomfort noted Patient is getting tube feeding continue zosyn,follow c/s d/w resident and I agree with the documentation
[2018-06-21] MEDS: (Novolog) Insulin Aspart, Recombinant 100 u/ml 10 ml vial SC SCH ×4 (07:35→21:49)
[2018-06-21] MEDS ORDERED: Potassium Chloride 20 mEq/15 ml LIQ UD PEG ONE (08:00)
[2018-06-21] MEDS: Lactobacillus Acidophilus 500 MU Cap PO SCH ×2 (09:51→17:46)
[2018-06-21] MEDS ORDERED: Pneumococcal 23-Valent Vaccine IM ONE ×2 (10:00→13:11)
[2018-06-21] MEDS ORDERED: Influenza Vaccine 60 MCG/0.5 ML SYR (3 yr & up) IM ONE ×2 (10:00→13:11)
--- NOTE | 2018-06-21 14:58 | CARD ---
APPROVED REPORT Date of service: 06/18/2018 EKG Measurement Heart [id number] <Conclusion> Sinus tachycardia Moderate voltage criteria for LVH, may be normal variant Borderline ECG
[2018-06-22] MEDS: Piperacillin/Tazobact 3.375 GM in Sodium Chloride 100 ML IVPB SCH ×2 (00:38→06:18)
--- NOTE | 2018-06-22 02:12 | CP.PCM.PN ---
Addendum entered and electronically signed by Amy Tran 06/22/18 14:42: zosyn stopped and changed to Meropenem 1 g q8h based on sensitivities the following home meds resumed: Carbo/Levo 25-250mg 5xdaily Mirtazapine 15mg hs Metoprolol 50mg bid ASA 81mg po daily Rasagiline .5mg 2 tabs daily Original Note: <Marlin Galicia - Last Filed: 06/22/18 06:50> Subjective - Date & Time of Evaluation Date of Evaluation: 06/22/18 Time of Evaluation: 06:50 - Subjective Subjective: Patient examined at bedside, resting comfortably. No acute events overnight. Family brought in a list of home meds. Objective - Vital Signs/Intake and Output Vital Signs (last 24 hours): Temp Pulse Resp BP Pulse Ox 98.7 F 72 20 158/68 H 98 06/22/18 00:05 06/22/18 00:05 06/22/18 00:05 06/22/18 00:05 06/22/18 00:05 Intake and Output: 06/21/18 06/22/18 18:59 06:59 Intake Total 2500 1430 Output Total 2300 1100 Balance 200 330 - Medications Medications: Current Medications Clonidine HCl (Catapres Tts1 0.1 Mg/24 Hr) 1 patch TD Q7D@1000 [facility] Last Admin: 06/18/18 22:00 Dose: 1 patch Dextrose (Dextrose 50% Inj) 0 ml IV STAT PRN; Protocol PRN Reason: Hypoglycemia Protocol Dextrose (Glutose 15) 0 gm PO ONCE PRN; Protocol PRN Reason: Hypoglycemia Protocol Glucagon (Glucagen Diagnostic Kit) 0 mg IM STAT PRN; Protocol PRN Reason: Hypoglycemia Protocol Heparin Sodium (Porcine) (Heparin) 5,000 units SC Q12 [facility] Last Admin: 06/21/18 21:50 Dose: 5,000 units Piperacillin Sod/Tazobactam (Sod 3.375 gm/ Sodium Chloride) 100 mls @ 200 mls/hr IVPB Q6H [facility]; Protocol Last Admin: 06/22/18 00:38 Dose: 200 mls/hr Dextrose (Dextrose 5% In Water 1000 Ml) 1,000 mls @ 0 mls/hr IV .Q0M PRN; Protocol PRN Reason: Hypoglycemia Protocol Sodium Chloride (Sodium Chloride 0.9%) 1,000 mls @ 100 mls/hr IV .Q10H [facility] Last Admin: 06/21/18 23:45 Dose: 100 mls/hr Insulin Aspart (Novolog) 0 unit SC ACHS [facility]; Protocol Last Admin: 06/21/18 21:49 Dose: Not Given Ketorolac Tromethamine (Toradol) 15 mg IVP Q6 PRN PRN Reason: Pain, moderate (4-7) Last Admin: 06/20/18 19:39 Dose: 15 mg Lactobacillus Acidophilus (Bacid Acidophilus) 1 cap PO BID [facility] Last Admin: 06/21/18 17:46 Dose: 1 cap Phytonadione (Vitamin K Tab) 5 mg PEG DAILY [facility] Stop: 06/23/18 12:46 Last Admin: 06/21/18 09:51 Dose: 5 mg - Labs Labs: 06/21/18 04:00 06/21/18 04:00 PT 19.5 SECONDS (9.7-12.2) H 06/18/18 10:37 INR 1.8 06/18/18 10:37 APTT 36 SECONDS (21-34) H 06/18/18 10:37 - Constitutional Appears: No Acute Distress - Head Exam Head Exam: ATRAUMATIC, NORMAL INSPECTION, NORMOCEPHALIC - Eye Exam Eye Exam: Normal appearance - ENT Exam ENT Exam: Mucous Membranes Dry - Neck Exam Neck Exam: Normal Inspection - Respiratory Exam Respiratory Exam: Clear to Ausculation Bilateral, NORMAL BREATHING PATTERN. absent: Rales, Wheezes - Cardiovascular Exam Cardiovascular Exam: REGULAR RHYTHM, +S1, +S2. absent: Tachycardia - GI/Abdominal Exam GI & Abdominal Exam: Soft, Normal Bowel Sounds. absent: Distended - Extremities Exam Extremities Exam: Normal Capillary Refill, Normal Inspection. absent: Pedal Edema - Neurological Exam Neurological Exam: Awake - Skin Skin Exam: Dry, Intact, Normal Color, Warm Assessment and Plan - Assessment and Plan (Free Text) Assessment: Bacteremia -blood cx-Pseudomonas + -WBC trending down, afebrile -zosyn 3.375 q6 -vanco 1g d47-ydiphym 06/21 -Flagyl 500mg q8-stopped 06/21 -AMS, daughters confirm deterioration -UTI/pyelo or enteritis suspected source of infection UTI/pyelonephritis -CT abd/pelvis shows possible colitis/rectal lesion. -urine-Pseudomonas -Cipro and Merrem have lowest ZAIRE -NS @100/hr AMS -continue to monitor -received home med list today, will adjust accordingly Sacral Decubitus ulcer -stage 2, likely not source of leukocytosis -continue wound care -position changes q2 Transaminitis -likely 2/[address] -improving -Hep panel negative HTN, chronic -hypertensive during day -clonidine patch TD DM2 -Accuchecks ACHS -ISS low dose -glucerna PEG @50 Parkinsons -stable -will discuss w/ attending and add appropriate home meds -palliative re-evaluation for Saturday Ppx -heparin 5000 sc q12 -lactobacillus BID <Cliff Hernandez - Last Filed: 06/24/18 16:23> Objective - Vital Signs/Intake and Output Vital Signs (last 24 hours): Temp Pulse Resp BP Pulse Ox 98 F 82 20 108/63 100 06/24/18 15:20 06/24/18 15:20 06/24/18 15:20 06/24/18 15:20 06/24/18 15:20 Intake and Output: 06/24/18 06/24/18 06:59 18:59 Intake Total 1600 2900 Output Total 1300 2700 Balance 300 200 - Medications Medications: Current Medications Aspirin (Aspirin Chewable) 81 mg PEG DAILY [facility] Last Admin: 06/24/18 09:02 Dose: 81 mg Carbidopa/Levodopa (Sinemet) 1 tab PEG 5XD [facility] Last Admin: 06/24/18 14:02 Dose: 1 tab Clonidine HCl (Catapres Tts1 0.1 Mg/24 Hr) 1 patch TD Q7D@1000 [facility] Last Admin: 06/18/18 22:00 Dose: 1 patch Dextrose (Dextrose 50% Inj) 0 ml IV STAT PRN; Protocol PRN Reason: Hypoglycemia Protocol Dextrose (Glutose 15) 0 gm PO ONCE PRN; Protocol PRN Reason: Hypoglycemia Protocol Glucagon (Glucagen Diagnostic Kit) 0 mg IM STAT PRN; Protocol PRN Reason: Hypoglycemia Protocol Heparin Sodium (Porcine) (Heparin) 5,000 units SC Q12 [facility] Last Admin: 06/24/18 09:02 Dose: 5,000 units Home Med (Home Med) 2 unit PEG DAILY [facility] Dextrose (Dextrose 5% In Water 1000 Ml) 1,000 mls @ 0 mls/hr IV .Q0M PRN; Protocol PRN Reason: Hypoglycemia Protocol Meropenem 1 gm/ Sodium (Chloride) 100 mls @ 100 mls/hr IVPB Q8H [facility]; Protocol Last Admin: 06/24/18 12:12 Dose: 100 mls/hr Sodium Chloride (Sodium Chloride 0.9%) 1,000 mls @ 100 mls/hr IV .Q10H [facility] Last Admin: 06/24/18 10:11 Dose: 100 mls/hr Insulin Aspart (Novolog) 0 unit SC ACHS [facility]; Protocol Last Admin: 06/24/18 11:44 Dose: Not Given Ketorolac Tromethamine (Toradol) 15 mg IVP Q6 PRN PRN Reason: Pain, moderate (4-7) Last Admin: 06/23/18 12:12 Dose: 15 mg Lactobacillus Acidophilus (Bacid Acidophilus) 1 cap PO BID [facility] Last Admin: 06/24/18 09:02 Dose: 1 cap Metoprolol Tartrate (Lopressor) 50 mg PEG BID [facility] Last Admin: 06/24/18 09:05 Dose: 50 mg Mirtazapine (Remeron) 15 mg PO HS [facility] Last Admin: 06/23/18 22:32 Dose: 15 mg - Labs Labs: 06/24/18 07:59 06/24/18 07:59 PT 16.1 SECONDS (9.7-12.2) H 06/22/18 08:38 INR 1.5 06/22/18 08:38 APTT 36 SECONDS (21-34) H 06/18/18 10:37 Attending/Attestation - Attestation I have personally seen and examined this patient.: Yes I have fully participated in the care of the patient.: Yes I have reviewed all pertinent clinical information, including history, physical exam and plan: Yes Notes (Text): Seen and examined this morning. patient is lying without distress,lethargic likely due to parkinson's disease. arousable. Started on his home antiparkinson's medication. D/W Dr Master john c/s report. Zosyn stopped and strted on Merropenen
[2018-06-22] MEDS: (Novolog) Insulin Aspart, Recombinant 100 u/ml 10 ml vial SC SCH ×4 (08:08→21:52)
[2018-06-22 08:55] LABS: INR 1.5; PROTHROMBIN TIME 16.1 SECONDS (9.7-12.2)
[2018-06-22 08:57] LABS: BASO % 0.3 % (0.0-2.0); EOS # 0.2 K/uL (0.0-0.7); EOS % 2.5 % (0.0-4.0); HEMOGLOBIN 9.9 g/dL (12.0-18.0); LYMPH # 1.8 K/uL (1.0-4.3); LYMPH % 21.5 % (20.0-40.0); MEAN CELL VOLUME 81.7 fL (80.0-94.0); MEAN CORPUSCULAR HEMOGLOBIN 27.1 pg (27.0-31.0); MEAN CORPUSCULAR HGB CONC 33.2 g/dL (33.0-37.0); MEAN PLATELET VOLUME 7.9 fL (7.2-11.7); MONO # 0.8 K/uL (0.0-0.8); MONO % 10.2 % (0.0-10.0); NEUT # 5.4 K/uL (1.8-7.0); NEUT % 65.5 % (50.0-75.0); NRBC % 0.1 % (0.0-2.0); RBC 3.65 Mil/uL (4.40-5.90); RED CELL DISTRIBUTION WIDTH 15.1 % (11.5-14.5); WHITE BLOOD COUNT 8.2 K/uL (4.8-10.8)
[2018-06-22 09:11] LABS: ALB/GLOB RATIO 0.8 (1.0-2.1); ALBUMIN 2.7 g/dL (3.5-5.0); ALT/SGPT 84 U/L (21-72); AST/SGOT 28 U/L (17-59); BLOOD UREA NITROGEN 19 mg/dL (9-20); CALCIUM 8.9 mg/dl (8.6-10.4); GFR NON-AFRICAN AMERICAN > 60
[2018-06-22] MEDS: Lactobacillus Acidophilus 500 MU Cap PO SCH ×2 (09:29→17:42)
[2018-06-22] MEDS ORDERED: Magnesium Hydroxide Susp 30 ml UD PEG ONE (11:11)
[2018-06-22] MEDS: Sodium Chloride 0.9% 1,000 ML IV SCH ×2 (12:38→19:55)
[2018-06-22] MEDS: Meropenem 1 GM in Sodium Chloride 0.9% 100 ML IVPB SCH ×2 (13:43→19:53)
[2018-06-22] MEDS ORDERED: Carbidopa/Levodopa 25/250 PO SCH (14:00)
--- NOTE | 2018-06-22 14:40 | CP.PCM.PN ---
Subjective - Date & Time of Evaluation Date of Evaluation: 06/22/18 Time of Evaluation: 08:00 - Subjective Subjective: no change in mental status afebrile Objective - Vital Signs/Intake and Output Vital Signs (last 24 hours): Temp Pulse Resp BP Pulse Ox 97.8 F 76 20 150/73 98 06/22/18 07:32 06/22/18 07:32 06/22/18 07:32 06/22/18 07:32 06/22/18 07:32 Intake and Output: 06/22/18 06/22/18 06:59 18:59 Intake Total 2930 240 Output Total 2100 240 Balance 830 0 - Medications Medications: Current Medications Aspirin (Aspirin Chewable) 81 mg PEG DAILY [facility] Last Admin: 06/22/18 13:47 Dose: 81 mg Carbidopa/Levodopa (Sinemet) 1 tab PEG 5XD [facility] Clonidine HCl (Catapres Tts1 0.1 Mg/24 Hr) 1 patch TD Q7D@1000 [facility] Last Admin: 06/18/18 22:00 Dose: 1 patch Dextrose (Dextrose 50% Inj) 0 ml IV STAT PRN; Protocol PRN Reason: Hypoglycemia Protocol Dextrose (Glutose 15) 0 gm PO ONCE PRN; Protocol PRN Reason: Hypoglycemia Protocol Glucagon (Glucagen Diagnostic Kit) 0 mg IM STAT PRN; Protocol PRN Reason: Hypoglycemia Protocol Heparin Sodium (Porcine) (Heparin) 5,000 units SC Q12 [facility] Last Admin: 06/22/18 09:30 Dose: 5,000 units Home Med (Home Med) 2 unit PEG DAILY [facility] Dextrose (Dextrose 5% In Water 1000 Ml) 1,000 mls @ 0 mls/hr IV .Q0M PRN; Protocol PRN Reason: Hypoglycemia Protocol Sodium Chloride (Sodium Chloride 0.9%) 1,000 mls @ 100 mls/hr IV .Q10H [facility] Last Admin: 06/22/18 12:38 Dose: Not Given Meropenem 1 gm/ Sodium (Chloride) 100 mls @ 100 mls/hr IVPB Q8H [facility]; Protocol Last Admin: 06/22/18 13:43 Dose: 100 mls/hr Insulin Aspart (Novolog) 0 unit SC ACHS [facility]; Protocol Last Admin: 06/22/18 12:38 Dose: Not Given Ketorolac Tromethamine (Toradol) 15 mg IVP Q6 PRN PRN Reason: Pain, moderate (4-7) Last Admin: 06/20/18 19:39 Dose: 15 mg Lactobacillus Acidophilus (Bacid Acidophilus) 1 cap PO BID [facility] Last Admin: 06/22/18 09:29 Dose: 1 cap Metoprolol Tartrate (Lopressor) 50 mg PEG BID [facility] Last Admin: 06/22/18 13:48 Dose: 50 mg Mirtazapine (Remeron) 15 mg PO [facility] Phytonadione (Vitamin K Tab) 5 mg PEG DAILY [facility] Stop: 06/23/18 12:46 Last Admin: 06/22/18 09:29 Dose: 5 mg - Labs Labs: 06/22/18 08:38 06/22/18 08:38 PT 16.1 SECONDS (9.7-12.2) H 06/22/18 08:38 INR 1.5 06/22/18 08:38 APTT 36 SECONDS (21-34) H 06/18/18 10:37 - Constitutional Appears: Non-toxic, Confused, Cachectic, Chronically Ill - Head Exam Head Exam: NORMOCEPHALIC - Eye Exam Eye Exam: PERRL - ENT Exam ENT Exam: Mucous Membranes Dry - Neck Exam Neck Exam: absent: Lymphadenopathy - Respiratory Exam Respiratory Exam: Decreased Breath Sounds - Cardiovascular Exam Cardiovascular Exam: REGULAR RHYTHM - GI/Abdominal Exam GI & Abdominal Exam: Distended - Exam Exam: NORMAL INSPECTION - Extremities Exam Extremities Exam: absent: Pedal Edema - Back Exam Back Exam: absent: CVA tenderness (L), CVA tenderness (R) - Neurological Exam Neurological Exam: Altered Assessment and Plan (1) UTI (urinary tract infection) Status: Acute (2) Bacteremia Status: Acute (3) Dehydration Status: Acute (4) Fever Status: Acute (5) Leukocytosis Status: Acute (6) Diabetes mellitus Status: Chronic (7) HTN (hypertension) Status: Chronic (8) Parkinson's disease dementia Status: Chronic - Assessment and Plan (Free Text) Assessment: cont iv rx for min 14 days
[2018-06-22] MEDS: Carbidopa/Levodopa 25/250 PEG SCH ×2 (17:42→20:55)
[2018-06-23] MEDS: Meropenem 1 GM in Sodium Chloride 0.9% 100 ML IVPB SCH ×3 (03:16→19:36)
[2018-06-23] MEDS: Sodium Chloride 0.9% 1,000 ML IV SCH ×2 (05:43→16:20)
[2018-06-23 07:56] LABS: BASO % 0.4 % (0.0-2.0); EOS # 0.2 K/uL (0.0-0.7); EOS % 3.2 % (0.0-4.0); HEMOGLOBIN 8.3 g/dL (12.0-18.0); LYMPH % 29.1 % (20.0-40.0); MEAN CELL VOLUME 82.1 fL (80.0-94.0); MEAN CORPUSCULAR HEMOGLOBIN 26.5 pg (27.0-31.0); MEAN CORPUSCULAR HGB CONC 32.3 g/dL (33.0-37.0); MEAN PLATELET VOLUME 7.7 fL (7.2-11.7); MONO # 0.7 K/uL (0.0-0.8); MONO % 10.8 % (0.0-10.0); NEUT # 3.9 K/uL (1.8-7.0); NEUT % 56.5 % (50.0-75.0); NRBC % 0.1 % (0.0-2.0); RBC 3.11 Mil/uL (4.40-5.90); RED CELL DISTRIBUTION WIDTH 15.1 % (11.5-14.5); WHITE BLOOD COUNT 6.9 K/uL (4.8-10.8)
[2018-06-23] MEDS: (Novolog) Insulin Aspart, Recombinant 100 u/ml 10 ml vial SC SCH ×4 (08:02→22:10)
[2018-06-23 08:09] LABS: ALB/GLOB RATIO 0.7 (1.0-2.1); ALBUMIN 2.1 g/dL (3.5-5.0); ALT/SGPT 47 U/L (21-72); AST/SGOT 35 U/L (17-59); BLOOD UREA NITROGEN 16 mg/dL (9-20); CALCIUM 7.3 mg/dl (8.6-10.4); GFR NON-AFRICAN AMERICAN > 60
--- NOTE | 2018-06-23 08:09 | CP.PCM.PN ---
<Marlin Galicia - Last Filed: 06/23/18 15:33> Subjective - Date & Time of Evaluation Date of Evaluation: 06/23/18 Time of Evaluation: 07:30 - Subjective Subjective: Pt examined at bedside. DaughterMelissa was in the room. We discussed her father's medical status and care. She reports that her father's mental status has gradually declines over the past month. She reported she was in discussion with her sister who is primary medical POA regarding palliative care measures. Further ROS unobtainable as pt is not responsive. Objective - Vital Signs/Intake and Output Vital Signs (last 24 hours): Temp Pulse Resp BP Pulse Ox 98.5 F 77 20 148/83 97 06/22/18 23:45 06/22/18 23:45 06/22/18 23:45 06/22/18 23:45 06/22/18 23:45 Intake and Output: 06/23/18 06/23/18 06:59 18:59 Intake Total 1500 Output Total 1000 Balance 500 - Medications Medications: Current Medications Aspirin (Aspirin Chewable) 81 mg PEG DAILY [facility] Last Admin: 06/22/18 13:47 Dose: 81 mg Carbidopa/Levodopa (Sinemet) 1 tab PEG 5XD [facility] Last Admin: 06/22/18 20:55 Dose: 1 tab Clonidine HCl (Catapres Tts1 0.1 Mg/24 Hr) 1 patch TD Q7D@1000 [facility] Last Admin: 06/18/18 22:00 Dose: 1 patch Dextrose (Dextrose 50% Inj) 0 ml IV STAT PRN; Protocol PRN Reason: Hypoglycemia Protocol Dextrose (Glutose 15) 0 gm PO ONCE PRN; Protocol PRN Reason: Hypoglycemia Protocol Glucagon (Glucagen Diagnostic Kit) 0 mg IM STAT PRN; Protocol PRN Reason: Hypoglycemia Protocol Heparin Sodium (Porcine) (Heparin) 5,000 units SC Q12 [facility] Last Admin: 06/22/18 21:58 Dose: 5,000 units Home Med (Home Med) 2 unit PEG DAILY [facility] Dextrose (Dextrose 5% In Water 1000 Ml) 1,000 mls @ 0 mls/hr IV .Q0M PRN; Protocol PRN Reason: Hypoglycemia Protocol Sodium Chloride (Sodium Chloride 0.9%) 1,000 mls @ 100 mls/hr IV .Q10H [facility] Last Admin: 06/23/18 05:43 Dose: 100 mls/hr Meropenem 1 gm/ Sodium (Chloride) 100 mls @ 100 mls/hr IVPB Q8H [facility]; Protocol Last Admin: 06/23/18 03:16 Dose: 100 mls/hr Insulin Aspart (Novolog) 0 unit SC ACHS [facility]; Protocol Last Admin: 06/23/18 08:02 Dose: Not Given Ketorolac Tromethamine (Toradol) 15 mg IVP Q6 PRN PRN Reason: Pain, moderate (4-7) Last Admin: 06/22/18 16:46 Dose: 15 mg Lactobacillus Acidophilus (Bacid Acidophilus) 1 cap PO BID [facility] Last Admin: 06/22/18 17:42 Dose: 1 cap Metoprolol Tartrate (Lopressor) 50 mg PEG BID [facility] Last Admin: 06/22/18 17:48 Dose: 50 mg Mirtazapine (Remeron) 15 mg PO HS [facility] Last Admin: 06/22/18 22:06 Dose: 15 mg Phytonadione (Vitamin K Tab) 5 mg PEG DAILY [facility] Stop: 06/23/18 12:46 Last Admin: 06/22/18 09:29 Dose: 5 mg - Labs Labs: 06/23/18 07:43 06/22/18 08:38 PT 16.1 SECONDS (9.7-12.2) H 06/22/18 08:38 INR 1.5 06/22/18 08:38 APTT 36 SECONDS (21-34) H 06/18/18 10:37 - Constitutional Appears: No Acute Distress - Head Exam Head Exam: ATRAUMATIC, NORMAL INSPECTION, NORMOCEPHALIC - ENT Exam ENT Exam: Mucous Membranes Dry, Normal Exam - Neck Exam Neck Exam: Normal Inspection - Respiratory Exam Respiratory Exam: Decreased Breath Sounds, Clear to Ausculation Bilateral, NORMAL BREATHING PATTERN. absent: Rhonchi, Wheezes - Cardiovascular Exam Cardiovascular Exam: REGULAR RHYTHM, +S1, +S2. absent: Tachycardia, Murmur - GI/Abdominal Exam GI & Abdominal Exam: Soft, Normal Bowel Sounds. absent: Distended - Extremities Exam Extremities Exam: Normal Inspection. absent: Pedal Edema - Back Exam Additional comments: Small 2x2cm sacral wound, well healing with bandage. - Neurological Exam Neurological Exam: absent: Alert, Awake - Skin Skin Exam: Dry, Intact, Normal Color, Warm Assessment and Plan - Assessment and Plan (Free Text) Assessment: 06/23 Pt currently on merrem 1g q8(06/22) for Pseudomonas bacteremia and urine due to greatest sensitivity. CXR shows no active dz, poss left pleural effusion Increasing fluids to 125ml/hr based on unremarkable cxr New blood/urine/sacral wound cx Parkinson home meds started 06/22, see below Bacteremia -blood cx-Pseudomonas + -f/u new blood cx -merrem 1g q8(06/22) -WBC trending down, afebrile -AMS, daughters confirm deterioration -UTI/pyelo or enteritis suspected source of infection UTI/pyelonephritis -urine cx + Pseudomonas -f/u new urine cx -merrem 1g q8 -NS @125/hr Parkinson's -resumed home meds carbi/levo 25/250 qd remeron 15mg hs Sacral Decubitus ulcer -stage 2, likely not source of leukocytosis -continue wound care -position changes q2 Electrolyte imbalance -neutra-phos -potassium 20mg Transaminitis -likely 2/[address] -improving -Hep panel negative HTN, chronic -metoprolol 50mg BID -clonidine patch TD DM2 -Accuchecks ACHS -ISS low dose -glucerna PEG @50 Constipation -no BM x5 days -miralax x1 Ppx -heparin 5000 sc q12 -lactobacillus BID Dispo: Spoke w/ daughter regarding palliative decisions. Will discuss w/ other sister and decide. <Anant Ambrosio H - Last Filed: 06/23/18 17:51> Objective - Vital Signs/Intake and Output Vital Signs (last 24 hours): Temp Pulse Resp BP Pulse Ox 98.4 F 78 20 157/64 H 97 06/23/18 15:57 06/23/18 15:57 06/23/18 15:57 06/23/18 15:57 06/23/18 15:57 Intake and Output: 06/23/18 06/23/18 06:59 18:59 Intake Total 1500 1900 Output Total 1000 2000 Balance 500 -100 - Medications Medications: Current Medications Aspirin (Aspirin Chewable) 81 mg PEG DAILY [facility] Last Admin: 06/23/18 09:53 Dose: 81 mg Carbidopa/Levodopa (Sinemet) 1 tab PEG 5XD [facility] Last Admin: 06/23/18 16:35 Dose: 1 tab Clonidine HCl (Catapres Tts1 0.1 Mg/24 Hr) 1 patch TD Q7D@1000 [facility] Last Admin: 06/18/18 22:00 Dose: 1 patch Dextrose (Dextrose 50% Inj) 0 ml IV STAT PRN; Protocol PRN Reason: Hypoglycemia Protocol Dextrose (Glutose 15) 0 gm PO ONCE PRN; Protocol PRN Reason: Hypoglycemia Protocol Glucagon (Glucagen Diagnostic Kit) 0 mg IM STAT PRN; Protocol PRN Reason: Hypoglycemia Protocol Heparin Sodium (Porcine) (Heparin) 5,000 units SC Q12 [facility] Last Admin: 06/23/18 09:53 Dose: 5,000 units Home Med (Home Med) 2 unit PEG DAILY [facility] Dextrose (Dextrose 5% In Water 1000 Ml) 1,000 mls @ 0 mls/hr IV .Q0M PRN; Protocol PRN Reason: Hypoglycemia Protocol Meropenem 1 gm/ Sodium (Chloride) 100 mls @ 100 mls/hr IVPB Q8H [facility]; Protocol Last Admin: 06/23/18 12:09 Dose: 100 mls/hr Sodium Chloride (Sodium Chloride 0.9%) 1,000 mls @ 125 mls/hr IV .Q8H [facility] Last Admin: 06/23/18 16:20 Dose: 125 mls/hr Insulin Aspart (Novolog) 0 unit SC ACHS [facility]; Protocol Last Admin: 06/23/18 11:16 Dose: Not Given Ketorolac Tromethamine (Toradol) 15 mg IVP Q6 PRN PRN Reason: Pain, moderate (4-7) Last Admin: 06/23/18 12:12 Dose: 15 mg Lactobacillus Acidophilus (Bacid Acidophilus) 1 cap PO BID [facility] Last Admin: 06/23/18 09:53 Dose: 1 cap Metoprolol Tartrate (Lopressor) 50 mg PEG BID [facility] Last Admin: 06/23/18 09:53 Dose: 50 mg Mirtazapine (Remeron) 15 mg PO HS [facility] Last Admin: 06/22/18 22:06 Dose: 15 mg - Labs Labs: 06/23/18 07:43 06/23/18 07:43 PT 16.1 SECONDS (9.7-12.2) H 06/22/18 08:38 INR 1.5 06/22/18 08:38 APTT 36 SECONDS (21-34) H 06/18/18 10:37 Attending/Attestation - Attestation I have personally seen and examined this patient.: Yes I have fully participated in the care of the patient.: Yes I have reviewed all pertinent clinical information, including history, physical exam and plan: Yes Notes (Text): 06/23/18 17:49 Medical attending: Patient was seen and examined by me, reviewed the above note by the medical assistant prn the above See is my first time meeting patient, I had to discuss with family member at bedside as well as with the medical staff and reviewed previous notes. On exam the patient is nonresponsive, he appears to be dry mucous membranes. We checked a portable chest x-ray just to make sure he is not fluid overload, and he is not supportive and increased intravenous fluids 125 ml. Will also continue the PEG feedings as before. Because of the most recent microbiology + psuedomonas growth in blood and urine. We will repeat the blood and urine at this time, also check the wound culture from the sacral area wound as well. Per the family member at bedside they are not comfortable with the idea of the patient being DNR/DNI at this time. Thank you very much, Anant Ambrosio
[2018-06-23] MEDS: Lactobacillus Acidophilus 500 MU Cap PO SCH ×2 (09:53→18:00)
--- NOTE | 2018-06-23 12:40 | CP.PCM.PN ---
Subjective - Date & Time of Evaluation Date of Evaluation: 06/23/18 Time of Evaluation: 08:00 - Subjective Subjective: pseudomonas in blood/ urine merrem in progress min 14 days required Objective - Vital Signs/Intake and Output Vital Signs (last 24 hours): Temp Pulse Resp BP Pulse Ox 97.8 F 77 20 162/72 H 100 06/23/18 08:00 06/23/18 08:00 06/23/18 08:00 06/23/18 08:00 06/23/18 08:00 Intake and Output: 06/23/18 06/23/18 06:59 18:59 Intake Total 1500 700 Output Total 1000 1000 Balance 500 -300 - Medications Medications: Current Medications Aspirin (Aspirin Chewable) 81 mg PEG DAILY [facility] Last Admin: 06/23/18 09:53 Dose: 81 mg Carbidopa/Levodopa (Sinemet) 1 tab PEG 5XD [facility] Last Admin: 06/22/18 20:55 Dose: 1 tab Clonidine HCl (Catapres Tts1 0.1 Mg/24 Hr) 1 patch TD Q7D@1000 [facility] Last Admin: 06/18/18 22:00 Dose: 1 patch Dextrose (Dextrose 50% Inj) 0 ml IV STAT PRN; Protocol PRN Reason: Hypoglycemia Protocol Dextrose (Glutose 15) 0 gm PO ONCE PRN; Protocol PRN Reason: Hypoglycemia Protocol Glucagon (Glucagen Diagnostic Kit) 0 mg IM STAT PRN; Protocol PRN Reason: Hypoglycemia Protocol Heparin Sodium (Porcine) (Heparin) 5,000 units SC Q12 [facility] Last Admin: 06/23/18 09:53 Dose: 5,000 units Home Med (Home Med) 2 unit PEG DAILY [facility] Dextrose (Dextrose 5% In Water 1000 Ml) 1,000 mls @ 0 mls/hr IV .Q0M PRN; Protocol PRN Reason: Hypoglycemia Protocol Sodium Chloride (Sodium Chloride 0.9%) 1,000 mls @ 100 mls/hr IV .Q10H [facility] Last Admin: 06/23/18 05:43 Dose: 100 mls/hr Meropenem 1 gm/ Sodium (Chloride) 100 mls @ 100 mls/hr IVPB Q8H [facility]; Protocol Last Admin: 06/23/18 12:09 Dose: 100 mls/hr Insulin Aspart (Novolog) 0 unit SC ACHS [facility]; Protocol Last Admin: 06/23/18 11:16 Dose: Not Given Ketorolac Tromethamine (Toradol) 15 mg IVP Q6 PRN PRN Reason: Pain, moderate (4-7) Last Admin: 06/23/18 12:12 Dose: 15 mg Lactobacillus Acidophilus (Bacid Acidophilus) 1 cap PO BID [facility] Last Admin: 06/23/18 09:53 Dose: 1 cap Metoprolol Tartrate (Lopressor) 50 mg PEG BID [facility] Last Admin: 06/23/18 09:53 Dose: 50 mg Mirtazapine (Remeron) 15 mg PO HS [facility] Last Admin: 06/22/18 22:06 Dose: 15 mg Phytonadione (Vitamin K Tab) 5 mg PEG DAILY [facility] Stop: 06/23/18 12:46 Last Admin: 06/23/18 09:53 Dose: 5 mg - Labs Labs: 06/23/18 07:43 06/23/18 07:43 PT 16.1 SECONDS (9.7-12.2) H 06/22/18 08:38 INR 1.5 06/22/18 08:38 APTT 36 SECONDS (21-34) H 06/18/18 10:37 - Constitutional Appears: Confused, Cachectic, Chronically Ill - Head Exam Head Exam: NORMOCEPHALIC - Eye Exam Eye Exam: PERRL. absent: Scleral icterus - ENT Exam ENT Exam: Mucous Membranes Dry - Neck Exam Neck Exam: absent: Lymphadenopathy - Respiratory Exam Respiratory Exam: Decreased Breath Sounds - Cardiovascular Exam Cardiovascular Exam: REGULAR RHYTHM - GI/Abdominal Exam GI & Abdominal Exam: Distended, Soft Assessment and Plan (1) UTI (urinary tract infection) Status: Acute (2) Bacteremia Status: Acute (3) Dehydration Status: Acute (4) Fever Status: Acute (5) Leukocytosis Status: Acute (6) Diabetes mellitus Status: Chronic (7) HTN (hypertension) Status: Chronic (8) Parkinson's disease dementia Status: Chronic - Assessment and Plan (Free Text) Assessment: cont merrem
--- NOTE | 2018-06-23 14:13 | RAD ---
Date of service: 06/23/2018 HISTORY: please eval for fluid overload COMPARISON: 06/18/2018 FINDINGS: LUNGS: There is mild pulmonary venous congestion. No focal consolidation. PLEURA: There is blunting of the left costophrenic angle, no pneumothorax apparent. CARDIOVASCULAR: Normal. OSSEOUS STRUCTURES: No significant abnormalities. VISUALIZED UPPER ABDOMEN: Normal. OTHER FINDINGS: None. IMPRESSION: No active pulmonary disease. Blunting of the left costophrenic angle may represent small left pleural effusion.
[2018-06-23] MEDS ORDERED: POLYETHYLENE GLYCOL 3350 17 GM/Dose PACKET PEG ONE (16:00)
[2018-06-23] MEDS ORDERED: Potassium Chloride 20 mEq/15 ml LIQ UD PEG ONE (16:00)
[2018-06-23] MEDS ORDERED: Potassium & Sodium Phosphate PEG ONE (16:30)
[2018-06-23] MEDS: Carbidopa/Levodopa 25/250 PEG SCH ×2 (16:35→19:35)
[2018-06-24] MEDS: Sodium Chloride 0.9% 1,000 ML IV SCH ×4 (01:27→20:07)
[2018-06-24] MEDS: Meropenem 1 GM in Sodium Chloride 0.9% 100 ML IVPB SCH ×3 (04:37→20:00)
--- NOTE | 2018-06-24 07:30 | CP.PCM.PN ---
<Marlin Galicia - Last Filed: 06/24/18 21:32> Subjective - Date & Time of Evaluation Date of Evaluation: 06/24/18 Time of Evaluation: 08:20 - Subjective Subjective: Pt was seen and examine at bedside. No overnight events. Pts mental status seems improved today, able to follow basic commands and attempting to speak although incomprehensible. Pt remains afebrile. Objective - Vital Signs/Intake and Output Vital Signs (last 24 hours): Temp Pulse Resp BP Pulse Ox 97.5 F L 71 20 161/71 H 100 06/23/18 23:20 06/23/18 23:20 06/23/18 23:20 06/23/18 23:20 06/23/18 23:20 Intake and Output: 06/24/18 06/24/18 06:59 18:59 Intake Total 1600 1600 Output Total 1300 1100 Balance 300 500 - Medications Medications: Current Medications Aspirin (Aspirin Chewable) 81 mg PEG DAILY [facility] Last Admin: 06/23/18 09:53 Dose: 81 mg Carbidopa/Levodopa (Sinemet) 1 tab PEG 5XD [facility] Last Admin: 06/23/18 19:35 Dose: 1 tab Clonidine HCl (Catapres Tts1 0.1 Mg/24 Hr) 1 patch TD Q7D@1000 [facility] Last Admin: 06/18/18 22:00 Dose: 1 patch Dextrose (Dextrose 50% Inj) 0 ml IV STAT PRN; Protocol PRN Reason: Hypoglycemia Protocol Dextrose (Glutose 15) 0 gm PO ONCE PRN; Protocol PRN Reason: Hypoglycemia Protocol Glucagon (Glucagen Diagnostic Kit) 0 mg IM STAT PRN; Protocol PRN Reason: Hypoglycemia Protocol Heparin Sodium (Porcine) (Heparin) 5,000 units SC Q12 [facility] Last Admin: 06/23/18 22:10 Dose: 5,000 units Home Med (Home Med) 2 unit PEG DAILY [facility] Dextrose (Dextrose 5% In Water 1000 Ml) 1,000 mls @ 0 mls/hr IV .Q0M PRN; Protocol PRN Reason: Hypoglycemia Protocol Meropenem 1 gm/ Sodium (Chloride) 100 mls @ 100 mls/hr IVPB Q8H [facility]; Protocol Last Admin: 06/24/18 04:37 Dose: 100 mls/hr Sodium Chloride (Sodium Chloride 0.9%) 1,000 mls @ 125 mls/hr IV .Q8H [facility] Last Admin: 06/24/18 01:27 Dose: 125 mls/hr Insulin Aspart (Novolog) 0 unit SC ACHS [facility]; Protocol Last Admin: 06/23/18 22:10 Dose: Not Given Ketorolac Tromethamine (Toradol) 15 mg IVP Q6 PRN PRN Reason: Pain, moderate (4-7) Last Admin: 06/23/18 12:12 Dose: 15 mg Lactobacillus Acidophilus (Bacid Acidophilus) 1 cap PO BID [facility] Last Admin: 06/23/18 18:00 Dose: 1 cap Metoprolol Tartrate (Lopressor) 50 mg PEG BID [facility] Last Admin: 06/23/18 18:00 Dose: 50 mg Mirtazapine (Remeron) 15 mg PO HS [facility] Last Admin: 06/23/18 22:32 Dose: 15 mg - Labs Labs: 06/23/18 07:43 06/23/18 07:43 PT 16.1 SECONDS (9.7-12.2) H 06/22/18 08:38 INR 1.5 06/22/18 08:38 APTT 36 SECONDS (21-34) H 06/18/18 10:37 - Constitutional Appears: Non-toxic - Head Exam Head Exam: ATRAUMATIC, NORMAL INSPECTION, NORMOCEPHALIC - Eye Exam Eye Exam: Normal appearance - ENT Exam ENT Exam: Mucous Membranes Moist - Neck Exam Neck Exam: Normal Inspection - Respiratory Exam Respiratory Exam: Clear to Ausculation Bilateral, NORMAL BREATHING PATTERN. absent: Rhonchi, Wheezes - Cardiovascular Exam Cardiovascular Exam: REGULAR RHYTHM, +S1, +S2. absent: Tachycardia, Murmur - GI/Abdominal Exam GI & Abdominal Exam: Soft, Normal Bowel Sounds. absent: Distended - Extremities Exam Extremities Exam: Normal Inspection. absent: Pedal Edema - Neurological Exam Neurological Exam: Awake - Skin Skin Exam: Dry, Intact, Normal Color, Warm Assessment and Plan - Assessment and Plan (Free Text) Assessment: 06/24 Transaminitis-worsening again today. Possible cholelithiasis. No hepatotoxic drugs on. Continue to monitor Pt currently on merrem 1g q8(06/22) for Pseudomonas bacteremia and urine due to greatest sensitivity. Pt is to continue merrem for [address] Thao Awaiting new culture results Bacteremia -blood cx-Pseudomonas + -f/u new blood cx -merrem 1g q8(06/22) -WBC trending down, afebrile -AMS, daughters confirm deterioration -UTI/pyelo or enteritis suspected source of infection UTI/pyelonephritis -urine cx + Pseudomonas -f/u new urine cx -merrem 1g q8 -NS @125/hr Parkinson's -resumed home meds carbi/levo 25/250 qd remeron 15mg hs Sacral Decubitus ulcer -stage 2, likely not source of leukocytosis -continue wound care -position changes q2 Electrolyte imbalance -neutra-phos Transaminitis -likely 2/[address] -improving -Hep panel negative HTN, chronic -metoprolol 50mg BID -clonidine patch TD DM2 -Accuchecks ACHS -ISS low dose -glucerna PEG @50 Ppx -heparin 5000 sc q12 -lactobacillus BID Dispo: Spoke w/ daughter regarding palliative decisions. Will discuss w/ other sister and decide. Discuss future goals of care and placement <Anant Ambrosio H - Last Filed: 06/25/18 07:25> Objective - Vital Signs/Intake and Output Vital Signs (last 24 hours): Temp Pulse Resp BP Pulse Ox 98.7 F 73 20 160/70 H 100 06/24/18 23:24 06/24/18 23:24 06/24/18 23:24 06/24/18 23:24 06/24/18 23:24 Intake and Output: 06/25/18 06/25/18 06:59 18:59 Intake Total 1200 Output Total 850 Balance 350 - Medications Medications: Current Medications Aspirin (Aspirin Chewable) 81 mg PEG DAILY [facility] Last Admin: 06/24/18 09:02 Dose: 81 mg Carbidopa/Levodopa (Sinemet) 1 tab PEG 5XD [facility] Last Admin: 06/24/18 21:56 Dose: 1 tab Clonidine HCl (Catapres Tts1 0.1 Mg/24 Hr) 1 patch TD Q7D@1000 [facility] Last Admin: 06/18/18 22:00 Dose: 1 patch Dextrose (Dextrose 50% Inj) 0 ml IV STAT PRN; Protocol PRN Reason: Hypoglycemia Protocol Dextrose (Glutose 15) 0 gm PO ONCE PRN; Protocol PRN Reason: Hypoglycemia Protocol Glucagon (Glucagen Diagnostic Kit) 0 mg IM STAT PRN; Protocol PRN Reason: Hypoglycemia Protocol Heparin Sodium (Porcine) (Heparin) 5,000 units SC Q12 [facility] Last Admin: 06/24/18 21:53 Dose: 5,000 units Home Med (Patient's Own Medication) 2 tab PEG DAILY [facility] Dextrose (Dextrose 5% In Water 1000 Ml) 1,000 mls @ 0 mls/hr IV .Q0M PRN; Protocol PRN Reason: Hypoglycemia Protocol Meropenem 1 gm/ Sodium (Chloride) 100 mls @ 100 mls/hr IVPB Q8H [facility]; Protocol Last Admin: 06/25/18 03:43 Dose: 100 mls/hr Sodium Chloride (Sodium Chloride 0.9%) 1,000 mls @ 100 mls/hr IV .Q10H [facility] Last Admin: 06/24/18 20:07 Dose: 100 mls/hr Insulin Aspart (Novolog) 0 unit SC ACHS [facility]; Protocol Last Admin: 06/24/18 21:55 Dose: Not Given Ketorolac Tromethamine (Toradol) 15 mg IVP Q6 PRN PRN Reason: Pain, moderate (4-7) Last Admin: 06/23/18 12:12 Dose: 15 mg Lactobacillus Acidophilus (Bacid Acidophilus) 1 cap PO BID [facility] Last Admin: 06/24/18 17:37 Dose: 1 cap Metoprolol Tartrate (Lopressor) 50 mg PEG BID [facility] Last Admin: 06/24/18 17:39 Dose: 50 mg Mirtazapine (Remeron) 15 mg PO HS [facility] Last Admin: 06/24/18 21:56 Dose: 15 mg - Labs Labs: 06/24/18 07:59 06/24/18 07:59 PT 16.1 SECONDS (9.7-12.2) H 06/22/18 08:38 INR 1.5 06/22/18 08:38 APTT 36 SECONDS (21-34) H 06/18/18 10:37 Attending/Attestation - Attestation I have personally seen and examined this patient.: Yes I have fully participated in the care of the patient.: Yes I have reviewed all pertinent clinical information, including history, physical exam and plan: Yes Notes (Text): 06/25/18 07:25 Medical attending: Patient was seen and examined by me, right reviewed the above note by the director of medical review and agree with the above note. Of note, the patient appeared to be more alert today. He was able to recognize presence and looked to us when we called his name. He is moving both his arms as well. He tried to speak to us however when he was trying to say was not understandable to us As mentioned above in the resident's note the patient remains on the IV antibiotics was previously positive in the urine and blood for Pseudomonas and is on IV meropenem at this moment. Per infectious disease will require at least 14 days. As of this moment were still pending on the repeat blood cultures in the repeat cultures, that being said his white blood cell count has decreased to 10 The patient will be getting a PICC line. Regarding continue with intravenous fluids at 125, his most recent chest x-ray previously did not show any fluid congestion over will monitor the patient case he becomes congested Once we get the echo as well as repeat cultures are negative consider having the patient return to [facility] Thank you very much Anant Ambrosio
[2018-06-24] MEDS: (Novolog) Insulin Aspart, Recombinant 100 u/ml 10 ml vial SC SCH ×4 (08:17→21:55)
[2018-06-24 08:18] LABS: BASO % 0.5 % (0.0-2.0); EOS # 0.4 K/uL (0.0-0.7); EOS % 3.8 % (0.0-4.0); HEMOGLOBIN 9.8 g/dL (12.0-18.0); LYMPH % 20.2 % (20.0-40.0); MEAN CELL VOLUME 81.4 fL (80.0-94.0); MEAN CORPUSCULAR HEMOGLOBIN 26.4 pg (27.0-31.0); MEAN CORPUSCULAR HGB CONC 32.5 g/dL (33.0-37.0); MEAN PLATELET VOLUME 7.5 fL (7.2-11.7); MONO # 0.9 K/uL (0.0-0.8); MONO % 9.1 % (0.0-10.0); NEUT # 6.4 K/uL (1.8-7.0); NEUT % 66.4 % (50.0-75.0); NRBC % 0.1 % (0.0-2.0); RBC 3.72 Mil/uL (4.40-5.90); RED CELL DISTRIBUTION WIDTH 15.2 % (11.5-14.5); WHITE BLOOD COUNT 9.7 K/uL (4.8-10.8)
[2018-06-24 08:43] LABS: ALB/GLOB RATIO 0.8 (1.0-2.1); ALBUMIN 2.6 g/dL (3.5-5.0); ALT/SGPT 66 U/L (21-72); AST/SGOT 70 U/L (17-59); BLOOD UREA NITROGEN 19 mg/dL (9-20); CALCIUM 8.6 mg/dl (8.6-10.4); GFR NON-AFRICAN AMERICAN > 60
[2018-06-24] MEDS: Carbidopa/Levodopa 25/250 PEG SCH ×7 (09:01→21:56)
[2018-06-24] MEDS: Lactobacillus Acidophilus 500 MU Cap PO SCH ×2 (09:02→17:37)
[2018-06-24] MEDS ORDERED: Potassium & Sodium Phosphate PEG ONE (09:30)
--- NOTE | 2018-06-24 13:19 | CP.PCM.PN ---
Subjective - Date & Time of Evaluation Date of Evaluation: 06/24/18 Time of Evaluation: 07:00 - Subjective Subjective: arousable NAD Objective - Vital Signs/Intake and Output Vital Signs (last 24 hours): Temp Pulse Resp BP Pulse Ox 98.7 F 76 20 172/77 H 100 06/24/18 07:15 06/24/18 07:15 06/24/18 07:15 06/24/18 07:15 06/24/18 07:15 Intake and Output: 06/24/18 06/24/18 06:59 18:59 Intake Total 1600 1600 Output Total 1300 1100 Balance 300 500 - Medications Medications: Current Medications Aspirin (Aspirin Chewable) 81 mg PEG DAILY [facility] Last Admin: 06/24/18 09:02 Dose: 81 mg Carbidopa/Levodopa (Sinemet) 1 tab PEG 5XD [facility] Last Admin: 06/24/18 11:14 Dose: 1 tab Clonidine HCl (Catapres Tts1 0.1 Mg/24 Hr) 1 patch TD Q7D@1000 [facility] Last Admin: 06/18/18 22:00 Dose: 1 patch Dextrose (Dextrose 50% Inj) 0 ml IV STAT PRN; Protocol PRN Reason: Hypoglycemia Protocol Dextrose (Glutose 15) 0 gm PO ONCE PRN; Protocol PRN Reason: Hypoglycemia Protocol Glucagon (Glucagen Diagnostic Kit) 0 mg IM STAT PRN; Protocol PRN Reason: Hypoglycemia Protocol Heparin Sodium (Porcine) (Heparin) 5,000 units SC Q12 [facility] Last Admin: 06/24/18 09:02 Dose: 5,000 units Home Med (Home Med) 2 unit PEG DAILY [facility] Dextrose (Dextrose 5% In Water 1000 Ml) 1,000 mls @ 0 mls/hr IV .Q0M PRN; P rotocol PRN Reason: Hypoglycemia Protocol Meropenem 1 gm/ Sodium (Chloride) 100 mls @ 100 mls/hr IVPB Q8H [facility]; Protocol Last Admin: 06/24/18 12:12 Dose: 100 mls/hr Sodium Chloride (Sodium Chloride 0.9%) 1,000 mls @ 100 mls/hr IV .Q10H [facility] Last Admin: 06/24/18 10:11 Dose: 100 mls/hr Insulin Aspart (Novolog) 0 unit SC ACHS [facility]; Protocol Last Admin: 06/24/18 11:44 Dose: Not Given Ketorolac Tromethamine (Toradol) 15 mg IVP Q6 PRN PRN Reason: Pain, moderate (4-7) Last Admin: 06/23/18 12:12 Dose: 15 mg Lactobacillus Acidophilus (Bacid Acidophilus) 1 cap PO BID [facility] Last Admin: 06/24/18 09:02 Dose: 1 cap Metoprolol Tartrate (Lopressor) 50 mg PEG BID [facility] Last Admin: 06/24/18 09:05 Dose: 50 mg Mirtazapine (Remeron) 15 mg PO [facility] Last Admin: 06/23/18 22:32 Dose: 15 mg - Labs Labs: 06/24/18 07:59 06/24/18 07:59 PT 16.1 SECONDS (9.7-12.2) H 06/22/18 08:38 INR 1.5 06/22/18 08:38 APTT 36 SECONDS (21-34) H 06/18/18 10:37 - Constitutional Appears: Non-toxic, Chronically Ill - Head Exam Head Exam: NORMOCEPHALIC - Eye Exam Eye Exam: PERRL - ENT Exam ENT Exam: Mucous Membranes Dry - Neck Exam Neck Exam: absent: Lymphadenopathy - Respiratory Exam Respiratory Exam: Decreased Breath Sounds - Cardiovascular Exam Cardiovascular Exam: REGULAR RHYTHM - GI/Abdominal Exam GI & Abdominal Exam: Distended, Soft - Rectal Exam Rectal Exam: Deferred - Exam Exam: NORMAL INSPECTION Assessment and Plan (1) UTI (urinary tract infection) Status: Acute (2) Bacteremia Status: Acute (3) Dehydration Status: Acute (4) Fever Status: Acute (5) Leukocytosis Status: Acute (6) Diabetes mellitus Status: Chronic (7) HTN (hypertension) Status: Chronic (8) Parkinson's disease dementia Status: Chronic - Assessment and Plan (Free Text) Assessment: cont iv rx for min 14 days
[2018-06-25] MEDS: Meropenem 1 GM in Sodium Chloride 0.9% 100 ML IVPB SCH ×3 (03:43→20:03)
[2018-06-25] MEDS: Sodium Chloride 0.9% 1,000 ML IV SCH ×2 (05:00→15:15)
[2018-06-25] MEDS: (Novolog) Insulin Aspart, Recombinant 100 u/ml 10 ml vial SC SCH ×4 (07:57→21:58)
[2018-06-25 08:27] LABS: BASO % 0.5 % (0.0-2.0); EOS # 0.2 K/uL (0.0-0.7); EOS % 2.6 % (0.0-4.0); HEMOGLOBIN 9.7 g/dL (12.0-18.0); LYMPH # 1.6 K/uL (1.0-4.3); LYMPH % 19.3 % (20.0-40.0); MEAN CORPUSCULAR HEMOGLOBIN 26.9 pg (27.0-31.0); MEAN CORPUSCULAR HGB CONC 33.1 g/dL (33.0-37.0); MEAN PLATELET VOLUME 7.1 fL (7.2-11.7); MONO # 0.8 K/uL (0.0-0.8); MONO % 9.6 % (0.0-10.0); NEUT # 5.7 K/uL (1.8-7.0); NRBC % 0.2 % (0.0-2.0); RBC 3.61 Mil/uL (4.40-5.90); RED CELL DISTRIBUTION WIDTH 15.4 % (11.5-14.5); WHITE BLOOD COUNT 8.4 K/uL (4.8-10.8)
[2018-06-25 08:51] LABS: ALB/GLOB RATIO 0.8 (1.0-2.1); ALBUMIN 2.7 g/dL (3.5-5.0); ALT/SGPT 54 U/L (21-72); AST/SGOT 48 U/L (17-59); BLOOD UREA NITROGEN 18 mg/dL (9-20); CALCIUM 8.8 mg/dl (8.6-10.4); GFR NON-AFRICAN AMERICAN > 60
[2018-06-25] MEDS: Carbidopa/Levodopa 25/250 PEG SCH ×5 (09:05→21:22)
[2018-06-25] MEDS: AZILECT 0.5 MG PEG SCH (10:13)
[2018-06-25] MEDS: Lactobacillus Acidophilus 500 MU Cap PO SCH ×2 (10:13→19:03)
--- NOTE | 2018-06-25 13:25 | CP.PCM.PN ---
<Misha Nelson - Last Filed: 06/25/18 18:13> Subjective - Date & Time of Evaluation Date of Evaluation: 06/25/18 Time of Evaluation: 09:30 - Subjective Subjective: Medicine Progress Note for Hospitalist Service Pt seen and examined at bedside this am. No acute events reported overnight. Pt remains at baseline as per RN. Unable to obtain ROS due to pt's current mental status. Objective - Vital Signs/Intake and Output Vital Signs (last 24 hours): Temp Pulse Resp BP Pulse Ox 98.6 F 77 20 157/68 H 98 06/25/18 08:00 06/25/18 08:00 06/25/18 08:00 06/25/18 08:00 06/25/18 08:00 Intake and Output: 06/25/18 06/25/18 06:59 18:59 Intake Total 1200 1500 Output Total 850 800 Balance 350 700 - Medications Medications: Current Medications Aspirin (Aspirin Chewable) 81 mg PEG DAILY [facility] Last Admin: 06/25/18 10:12 Dose: 81 mg Carbidopa/Levodopa (Sinemet) 1 tab PEG 5XD [facility] Last Admin: 06/25/18 10:13 Dose: 1 tab Clonidine HCl (Catapres Tts1 0.1 Mg/24 Hr) 1 patch TD Q7D@1000 [facility] Last Admin: 06/25/18 10:25 Dose: Not Given Dextrose (Dextrose 50% Inj) 0 ml IV STAT PRN; Protocol PRN Reason: Hypoglycemia Protocol Dextrose (Glutose 15) 0 gm PO ONCE PRN; Protocol PRN Reason: Hypoglycemia Protocol Glucagon (Glucagen Diagnostic Kit) 0 mg IM STAT PRN; Protocol PRN Reason: Hypoglycemia Protocol Heparin Sodium (Porcine) (Heparin) 5,000 units SC Q12 [facility] Last Admin: 06/25/18 10:14 Dose: 5,000 units Home Med (Patient's Own Medication) 2 tab PEG DAILY [facility] Last Admin: 06/25/18 10:13 Dose: 2 tab Dextrose (Dextrose 5% In Water 1000 Ml) 1,000 mls @ 0 mls/hr IV .Q0M PRN; Protocol PRN Reason: Hypoglycemia Protocol Meropenem 1 gm/ Sodium (Chloride) 100 mls @ 100 mls/hr IVPB Q8H [facility]; Protocol Last Admin: 06/25/18 12:50 Dose: 100 mls/hr Sodium Chloride (Sodium Chloride 0.9%) 1,000 mls @ 100 mls/hr IV .Q10H [facility] Last Admin: 06/25/18 05:00 Dose: Not Given Insulin Aspart (Novolog) 0 unit SC ACHS [facility]; Protocol Last Admin: 06/25/18 12:48 Dose: 1 units Ketorolac Tromethamine (Toradol) 15 mg IVP Q6 PRN PRN Reason: Pain, moderate (4-7) Last Admin: 06/23/18 12:12 Dose: 15 mg Lactobacillus Acidophilus (Bacid Acidophilus) 1 cap PO BID [facility] Last Admin: 06/25/18 10:13 Dose: 1 cap Metoprolol Tartrate (Lopressor) 50 mg PEG BID [facility] Last Admin: 06/25/18 10:12 Dose: 50 mg Mirtazapine (Remeron) 15 mg PO HS [facility] Last Admin: 06/24/18 21:56 Dose: 15 mg - Labs Labs: 06/25/18 08:24 06/25/18 08:24 PT 16.1 SECONDS (9.7-12.2) H 06/22/18 08:38 INR 1.5 06/22/18 08:38 APTT 36 SECONDS (21-34) H 06/18/18 10:37 - Constitutional Appears: Non-toxic, No Acute Distress, Confused, Chronically Ill - Head Exam Head Exam: ATRAUMATIC, NORMOCEPHALIC - Eye Exam Eye Exam: EOMI, Normal appearance, PERRL - ENT Exam ENT Exam: Mucous Membranes Moist - Respiratory Exam Respiratory Exam: Clear to Ausculation Bilateral, NORMAL BREATHING PATTERN. absent: Rales, Rhonchi, Wheezes - Cardiovascular Exam Cardiovascular Exam: REGULAR RHYTHM, +S1, +S2. absent: Gallop, Rubs, Murmur - GI/Abdominal Exam GI & Abdominal Exam: Soft, Normal Bowel Sounds. absent: Distended, Firm, Guarding, Rigid, Tenderness, Organomegaly, Rebound - Neurological Exam Neurological Exam: Alert, Awake - Skin Skin Exam: Dry, Intact, Warm Assessment and Plan - Assessment and Plan (Free Text) Plan: Transaminitis-worsening. Possible cholelithiasis. No hepatotoxic drugs on. Continue to monitor Pt currently on merrem 1g q8 (06/22) for Pseudomonas bacteremia and urine due to greatest sensitivity. Pt is to continue merrem for [address] Thao Awaiting new culture results Bacteremia -blood cx-Pseudomonas + -f/u new blood cx -merrem 1g q8 (06/22) -WBC trending down, afebrile -AMS, daughters confirm deterioration -UTI/pyelo or enteritis suspected source of infection -Obtained consent from daughter at bedside for PICC line placement UTI/pyelonephritis -urine cx + Pseudomonas -f/u new urine cx -merrem 1g q8 -NS @125/hr Parkinson's -resumed home meds carbi/levo 25/250 qd remeron 15mg hs Sacral Decubitus ulcer -stage 2, likely not source of leukocytosis -continue wound care -position changes q2 Electrolyte imbalance -neutra-phos HTN, chronic -metoprolol 50mg BID -clonidine patch TD DM2 -Accuchecks ACHS -ISS low dose -glucerna PEG @50 Ppx -heparin 5000 sc q12 -lactobacillus BID Dispo: Obtained consent from daughter re PICC line placement. Plan to discuss goals of care, daughter and family still deciding. Pt seen, examined with, and plan discussed with Dr. Ambrosio, attending. Misha Nelson DO PGY-1, Relationship [employer] Pager #[phone] <Anant Ambrosio - Last Filed: 06/25/18 18:26> Objective - Vital Signs/Intake and Output Vital Signs (last 24 hours): Temp Pulse Resp BP Pulse Ox 98.3 F 77 20 151/67 H 100 06/25/18 16:00 06/25/18 16:00 06/25/18 16:00 06/25/18 16:00 06/25/18 16:00 Intake and Output: 06/25/18 06/25/18 06:59 18:59 Intake Total 1200 2800 Output Total 850 1950 Balance 350 850 - Medications Medications: Current Medications Aspirin (Aspirin Chewable) 81 mg PEG DAILY [facility] Last Admin: 06/25/18 10:12 Dose: 81 mg Carbidopa/Levodopa (Sinemet) 1 tab PEG 5XD [facility] Last Admin: 06/25/18 13:51 Dose: 1 tab Clonidine HCl (Catapres Tts1 0.1 Mg/24 Hr) 1 patch TD Q7D@1000 [facility] Last Admin: 06/25/18 10:25 Dose: Not Given Dextrose (Dextrose 50% Inj) 0 ml IV STAT PRN; Protocol PRN Reason: Hypoglycemia Protocol Dextrose (Glutose 15) 0 gm PO ONCE PRN; Protocol PRN Reason: Hypoglycemia Protocol Glucagon (Glucagen Diagnostic Kit) 0 mg IM STAT PRN; Protocol PRN Reason: Hypoglycemia Protocol Heparin Sodium (Porcine) (Heparin) 5,000 units SC Q12 [facility] Last Admin: 06/25/18 10:14 Dose: 5,000 units Home Med (Patient's Own Medication) 2 tab PEG DAILY [facility] Last Admin: 06/25/18 10:13 Dose: 2 tab Dextrose (Dextrose 5% In Water 1000 Ml) 1,000 mls @ 0 mls/hr IV .Q0M PRN; Protocol PRN Reason: Hypoglycemia Protocol Meropenem 1 gm/ Sodium (Chloride) 100 mls @ 100 mls/hr IVPB Q8H [facility]; Protocol Last Admin: 06/25/18 12:50 Dose: 100 mls/hr Sodium Chloride (Sodium Chloride 0.9%) 1,000 mls @ 100 mls/hr IV .Q10H [facility] Last Admin: 06/25/18 05:00 Dose: Not Given Insulin Aspart (Novolog) 0 unit SC ACHS [facility]; Protocol Last Admin: 06/25/18 12:48 Dose: 1 units Lactobacillus Acidophilus (Bacid Acidophilus) 1 cap PO BID [facility] Last Admin: 06/25/18 10:13 Dose: 1 cap Metoprolol Tartrate (Lopressor) 50 mg PEG BID [facility] Last Admin: 06/25/18 10:12 Dose: 50 mg Mirtazapine (Remeron) 15 mg PO HS [facility] Last Admin: 06/24/18 21:56 Dose: 15 mg - Labs Labs: 06/25/18 08:24 06/25/18 08:24 PT 16.1 SECONDS (9.7-12.2) H 06/22/18 08:38 INR 1.5 06/22/18 08:38 APTT 36 SECONDS (21-34) H 06/18/18 10:37 Attending/Attestation - Attestation I have personally seen and examined this patient.: Yes I have fully participated in the care of the patient.: Yes I have reviewed all pertinent clinical information, including history, physical exam and plan: Yes Notes (Text): 06/25/18 18:26 Medical attending: Patient was seen and examined by me, reviewed the above note by the medical lead and agree with the above note. At this moment were pending PICC line placement. The patient will need a total 14 days of the IV meropenem. The repeat blood and repeat urine cultures are negative. As mentioned before when the patient came he had elevated white blood cell count with positive blood cultures and urine cultures for Pseudomonas As mentioned above the patient was awake, he was able to look at us when we called out his name. He tried to speak to us but it's difficult to understand what he is trying to set Thank you very much, Anant Ambrosio
--- NOTE | 2018-06-25 16:27 | CP.PCM.PN ---
Subjective - Date & Time of Evaluation Date of Evaluation: 06/25/18 Time of Evaluation: 09:00 - Subjective Subjective: repeat blood c/s neg PICC in progress Objective - Vital Signs/Intake and Output Vital Signs (last 24 hours): Temp Pulse Resp BP Pulse Ox 98.3 F 77 20 151/67 H 100 06/25/18 16:00 06/25/18 16:00 06/25/18 16:00 06/25/18 16:00 06/25/18 16:00 Intake and Output: 06/25/18 06/25/18 06:59 18:59 Intake Total 1200 2800 Output Total 850 1950 Balance 350 850 - Medications Medications: Current Medications Aspirin (Aspirin Chewable) 81 mg PEG DAILY [facility] Last Admin: 06/25/18 10:12 Dose: 81 mg Carbidopa/Levodopa (Sinemet) 1 tab PEG 5XD [facility] Last Admin: 06/25/18 13:51 Dose: 1 tab Clonidine HCl (Catapres Tts1 0.1 Mg/24 Hr) 1 patch TD Q7D@1000 [facility] Last Admin: 06/25/18 10:25 Dose: Not Given Dextrose (Dextrose 50% Inj) 0 ml IV STAT PRN; Protocol PRN Reason: Hypoglycemia Protocol Dextrose (Glutose 15) 0 gm PO ONCE PRN; Protocol PRN Reason: Hypoglycemia Protocol Glucagon (Glucagen Diagnostic Kit) 0 mg IM STAT PRN; Protocol PRN Reason: Hypoglycemia Protocol Heparin Sodium (Porcine) (Heparin) 5,000 units SC Q12 [facility] Last Admin: 06/25/18 10:14 Dose: 5,000 units Home Med (Patient's Own Medication) 2 tab PEG DAILY [facility] Last Admin: 06/25/18 10:13 Dose: 2 tab Dextrose (Dextrose 5% In Water 1000 Ml) 1,000 mls @ 0 mls/hr IV .Q0M PRN; Protocol PRN Reason: Hypoglycemia Protocol Meropenem 1 gm/ Sodium (Chloride) 100 mls @ 100 mls/hr IVPB Q8H [facility]; Protocol Last Admin: 06/25/18 12:50 Dose: 100 mls/hr Sodium Chloride (Sodium Chloride 0.9%) 1,000 mls @ 100 mls/hr IV .Q10H [facility] Last Admin: 06/25/18 05:00 Dose: Not Given Insulin Aspart (Novolog) 0 unit SC ACHS [facility]; Protocol Last Admin: 10/03/18 12:48 Dose: 1 units Lactobacillus Acidophilus (Bacid Acidophilus) 1 cap PO BID [facility] Last Admin: 06/25/18 10:13 Dose: 1 cap Metoprolol Tartrate (Lopressor) 50 mg PEG BID [facility] Last Admin: 06/25/18 10:12 Dose: 50 mg Mirtazapine (Remeron) 15 mg PO HS [facility] Last Admin: 06/24/18 21:56 Dose: 15 mg - Labs Labs: 06/25/18 08:24 06/25/18 08:24 PT 16.1 SECONDS (9.7-12.2) H 06/22/18 08:38 INR 1.5 06/22/18 08:38 APTT 36 SECONDS (21-34) H 06/18/18 10:37 - Constitutional Appears: Non-toxic, Chronically Ill - Head Exam Head Exam: NORMOCEPHALIC - Eye Exam Eye Exam: PERRL - ENT Exam ENT Exam: Mucous Membranes Dry - Neck Exam Neck Exam: absent: Lymphadenopathy - Respiratory Exam Respiratory Exam: Decreased Breath Sounds - Cardiovascular Exam Cardiovascular Exam: REGULAR RHYTHM - GI/Abdominal Exam GI & Abdominal Exam: Distended, Soft Assessment and Plan (1) UTI (urinary tract infection) Status: Acute (2) Bacteremia Status: Acute (3) Dehydration Status: Acute (4) Fever Status: Acute (5) Leukocytosis Status: Acute (6) Diabetes mellitus Status: Chronic (7) HTN (hypertension) Status: Chronic (8) Parkinson's disease dementia Status: Chronic - Assessment and Plan (Free Text) Assessment: iv rx renewed
--- NOTE | 2018-06-25 16:55 | RAD ---
Date of service: 06/25/2018 HISTORY: verify left PICC COMPARISON: 06/23/2018 FINDINGS: LUNGS: No active pulmonary disease. PLEURA: No pneumothorax or other significant finding. CARDIOVASCULAR: PICC line identified inserted via left upper extremity approach. The tip is in the SVC approximately 9 cm from the cavoatrial junction. OSSEOUS STRUCTURES: No significant abnormalities. VISUALIZED UPPER ABDOMEN: Normal. OTHER FINDINGS: None. IMPRESSION: No adverse findings following PICC line placement. No active pulmonary disease/interval changes.
[2018-06-26] MEDS: Sodium Chloride 0.9% 1,000 ML IV SCH ×4 (01:55→22:12)
[2018-06-26] MEDS: Meropenem 1 GM in Sodium Chloride 0.9% 100 ML IVPB SCH ×3 (04:30→22:06)
[2018-06-26 06:47] LABS: BASO % 0.4 % (0.0-2.0); EOS # 0.3 K/uL (0.0-0.7); EOS % 3.4 % (0.0-4.0); HEMOGLOBIN 9.8 g/dL (12.0-18.0); LYMPH # 3.1 K/uL (1.0-4.3); MEAN CELL VOLUME 81.7 fL (80.0-94.0); MEAN CORPUSCULAR HEMOGLOBIN 26.8 pg (27.0-31.0); MEAN CORPUSCULAR HGB CONC 32.8 g/dL (33.0-37.0); MEAN PLATELET VOLUME 7.5 fL (7.2-11.7); MONO # 0.9 K/uL (0.0-0.8); NEUT # 5.3 K/uL (1.8-7.0); NEUT % 55.2 % (50.0-75.0); NRBC % 0.1 % (0.0-2.0); RBC 3.65 Mil/uL (4.40-5.90); RED CELL DISTRIBUTION WIDTH 15.4 % (11.5-14.5); WHITE BLOOD COUNT 9.5 K/uL (4.8-10.8)
[2018-06-26 08:03] LABS: ALB/GLOB RATIO 0.8 (1.0-2.1); ALBUMIN 2.8 g/dL (3.5-5.0); ALT/SGPT 30 U/L (21-72); AST/SGOT 40 U/L (17-59); BLOOD UREA NITROGEN 18 mg/dL (9-20); GFR NON-AFRICAN AMERICAN > 60
[2018-06-26] MEDS: (Novolog) Insulin Aspart, Recombinant 100 u/ml 10 ml vial SC SCH ×4 (08:38→22:07)
[2018-06-26] MEDS: Carbidopa/Levodopa 25/250 PEG SCH ×5 (09:00→22:06)
[2018-06-26] MEDS: Lactobacillus Acidophilus 500 MU Cap PO SCH ×2 (09:10→17:40)
[2018-06-26] MEDS: AZILECT 0.5 MG PEG SCH (09:10)
--- NOTE | 2018-06-26 13:41 | CP.PCM.DIS ---
<Marlin Galicia - Last Filed: 06/26/18 14:04> Provider - Provider Date of Admission: 06/18/18 13:03 Attending physician: Cliff Hernandez MD Time Spent in preparation of Discharge (in minutes): 29 Diagnosis - Discharge Diagnosis (1) Bacteremia Status: Acute Comment: initial blood culture Pseudomonas +. treated w/ Merrem. repeat blood cx negative (2) Dehydration Status: Acute (3) UTI (urinary tract infection) Status: Acute Comment: Urine cx Pseudomonal +. IV Merrem (4) Sacral decubitus ulcer Status: Acute Comment: sacral ulcer cx Klebsiella +. IV merrem Hospital Course - Lab Results Lab Results: Micro Results 06/23/18 14:44 Sacral Gram Stain - Final 06/23/18 14:44 Sacral Wound Culture - Preliminary Klebsiella Pneumoniae Ssp Pneu Yeast Species 06/23/18 17:24 Blood-Venous Blood Culture - Preliminary NO GROWTH AFTER 48 HOURS 06/23/18 17:24 Blood-Venous Blood Culture - Preliminary NO GROWTH AFTER 48 HOURS 06/23/18 14:05 Urine Urine Culture - Final Yeast Species 06/18/18 22:26 Urine,Mckinnon Urine Culture - Final Pseudomonas Aeruginosa 06/18/18 15:36 Blood Blood Culture - Final Pseudomonas Aeruginosa 06/18/18 15:36 Blood Gram Stain - Final 06/18/18 15:36 Blood Blood Culture - Preliminary Gram Negative Rashi 06/18/18 15:36 Blood Gram Stain - Final Most Recent Lab Values WBC 9.5 K/uL (4.8-10.8) 06/26/18 06:30 RBC 3.65 Mil/uL (4.40-5.90) L 06/26/18 06:30 Hgb 9.8 g/dL (12.0-18.0) L 06/26/18 06:30 Hct 29.8 % (35.0-51.0) L 06/26/18 06:30 MCV 81.7 fL (80.0-94.0) 06/26/18 06:30 MCH 26.8 pg (27.0-31.0) L 06/26/18 06:30 MCHC 32.8 g/dL (33.0-37.0) L 06/26/18 06:30 RDW 15.4 % (11.5-14.5) H 06/26/18 06:30 Plt Count 541 K/uL (130-400) H 06/26/18 06:30 MPV 7.5 fL (7.2-11.7) 06/26/18 06:30 Neut % (Auto) 55.2 % (50.0-75.0) 06/26/18 06:30 Lymph % (Auto) 32.0 % (20.0-40.0) 06/26/18 06:30 Erath % (Auto) 9.0 % (0.0-10.0) 06/26/18 06:30 Eos % (Auto) 3.4 % (0.0-4.0) 06/26/18 06:30 Baso % (Auto) 0.4 % (0.0-2.0) 06/26/18 06:30 Neut # (Auto) 5.3 K/uL (1.8-7.0) 06/26/18 06:30 Lymph # (Auto) 3.1 K/uL (1.0-4.3) 06/26/18 06:30 Erath # (Auto) 0.9 K/uL (0.0-0.8) H 06/26/18 06:30 Eos # (Auto) 0.3 K/uL (0.0-0.7) 06/26/18 06:30 Baso # (Auto) 0.0 K/uL (0.0-0.2) 06/26/18 06:30 Neutrophils % (Manual) 82 % (50-75) H 06/20/18 07:21 Band Neutrophils % 1 % (0-2) 06/20/18 07:21 Lymphocytes % (Manual) 7 % (20-40) L 06/20/18 07:21 Monocytes % (Manual) 6 % (0-10) 06/20/18 07:21 Eosinophils % (Manual) 4 % (0-4) 06/20/18 07:21 Platelet Estimate Normal (NORMAL) 06/20/18 07:21 Polychromasia Slight 06/19/18 06:35 Hypochromasia (manual) Slight 06/20/18 07:21 Poikilocytosis (manual Slight 06/20/18 07:21 Anisocytosis (manual) Slight 06/20/18 07:21 Target Cells Slight 06/18/18 10:37 PT 16.1 SECONDS (9.7-12.2) H 06/22/18 08:38 INR 1.5 06/22/18 08:38 APTT 36 SECONDS (21-34) H 06/18/18 10:37 Puncture Site Done by 06/19/18 13:14 pCO2 37 mm/Hg (35-45) 06/19/18 13:14 pO2 176 mm/Hg (80-100) H 06/19/18 13:14 HCO3 25.4 mmol/L (21-28) 06/19/18 13:14 ABG pH 7.43 (7.35-7.45) 06/19/18 13:14 ABG Total CO2 25.7 mmol/L (22-28) 06/19/18 13:14 ABG O2 Saturation 99.6 % (95-98) H 06/19/18 13:14 ABG Base Excess 0.5 mmol/L (-2.0-3.0) 06/19/18 13:14 Nader Test Pos 06/19/18 13:14 ABG Potassium 3.5 mmol/L (3.6-5.2) L 06/19/18 13:14 VBG pH 7.09 (7.32-7.43) L* 06/19/18 12:11 VBG pCO2 64 mmHg (40-60) H 06/19/18 12:11 VBG HCO3 16.2 mmol/L 06/19/18 12:11 VBG Total CO2 21.4 mmol/L (22-28) L 06/19/18 12:11 VBG O2 Sat (Calc) 99.8 % (40-65) H 06/19/18 12:11 VBG Base Excess -11.2 mmol/L (0.0-2.0) L 06/19/18 12:11 VBG Potassium > 20.0 mmol/L (3.6-5.2) H* 06/19/18 12:11 Sodium 146.0 mmol/l (132-148) 06/19/18 13:14 Chloride 117.0 mmol/L (98-107) H 06/19/18 13:14 Glucose 130 mg/dl (75-110) H 06/19/18 13:14 Lactate 0.6 mmol/L (0.7-2.1) L 06/19/18 13:14 FiO2 21 % 06/18/18 10:54 Crit Value Called To dahiana Hannah 06/19/18 12:11 Crit Value Called By Danielle chapman 06/19/18 12:11 Crit Value Read Back Y 06/19/18 12:11 Blood Gas Notified Time 1219 06/19/18 12:11 Sodium 140 mmol/L (132-148) 06/26/18 06:30 Potassium 4.1 mmol/L (3.6-5.2) 06/26/18 06:30 Chloride 103 mmol/L (98-107) 06/26/18 06:30 Carbon Dioxide 29 mmol/L (22-30) 06/26/18 06:30 Anion Gap 12 (10-20) 06/26/18 06:30 BUN 18 mg/dL (9-20) 06/26/18 06:30 Creatinine 0.8 mg/dL (0.8-1.5) 06/26/18 06:30 Est GFR ( Amer) > 60 06/26/18 06:30 Est GFR (Non-Af Amer) > 60 06/26/18 06:30 POC Glucose (mg/dL) 129 mg/dL (65-110) H 06/26/18 11:05 Random Glucose 104 mg/dL (75-110) 06/26/18 06:30 Lactic Acid 1.4 mmol/L (0.7-2.1) 06/18/18 13:31 Calcium 9.0 mg/dl (8.6-10.4) 06/26/18 06:30 Phosphorus 2.5 mg/dL (2.5-4.5) 06/26/18 06:30 Magnesium 2.1 mg/dL (1.6-2.3) 06/26/18 06:30 Total Bilirubin 0.3 mg/dL (0.2-1.3) 06/26/18 06:30 AST 40 U/L (17-59) 06/26/18 06:30 ALT 30 U/L (21-72) 06/26/18 06:30 Alkaline Phosphatase 127 U/L (38-126) H 06/26/18 06:30 Total Protein 6.3 g/dL (6.3-8.3) 06/26/18 06:30 Albumin 2.8 g/dL (3.5-5.0) L 06/26/18 06:30 Globulin 3.5 gm/dL (2.2-3.9) 06/26/18 06:30 Albumin/Globulin Ratio 0.8 (1.0-2.1) L 06/26/18 06:30 Procalcitonin 69.81 NG/ML (0.19-0.49) H 06/19/18 12:11 Arterial Blood Potassium 3.5 mmol/L (3.6-5.2) L 06/19/18 13:14 Venous Blood Potassium > 20.0 mmol/L (3.6-5.2) H* 06/19/18 12:11 Urine Color Wilda (YELLOW) 06/18/18 22:26 Urine Clarity Hazy (Clear) 06/18/18 22:26 Urine pH 7.0 (5.0-8.0) 06/18/18 22:26 Ur Specific Mark[place] 1.023 (1.003-1.030) 06/18/18 22:26 Urine Protein 2+ mg/dL (NEGATIVE) H 06/18/18 22:26 Urine Glucose (UA) Normal mg/dL (Normal) 06/18/18 22:26 Urine Ketones Negative mg/dL (NEGATIVE) 06/18/18 22:26 Urine Blood 3+ (NEGATIVE) H 06/18/18 22:26 Urine Nitrate Negative (NEGATIVE) 06/18/18 22: Urine Bilirubin Negative (NEGATIVE) 06/18/18 22: Urine Urobilinogen Normal mg/dL (0.2-1.0) 06/18/18 22:26 Ur Leukocyte Esterase 3+ Claudia/uL (Negative) H 06/18/18 22:26 Urine WBC (Auto) 227 /hpf (0-5) H 06/18/18 22:26 Urine RBC (Auto) 657 /hpf (0-3) H 06/18/18 22:26 Ur Squamous Epith Cells 1 /hpf (0-5) 06/18/18 22:26 Urine Bacteria Rare (<OCC) 06/18/18 22:26 Vancomycin Trough 13.8 ug/mL (5.0-10.0) H 06/21/18 04:00 Hepatitis A IgM Ab Negative (NEGATIVE) 06/19/18 06:35 Hep Bs Antigen Negative (NEGATIVE) 06/19/18 06:35 Hep B Core IgM Ab Negative (NEGATIVE) 06/19/18 06:35 Hepatitis C Antibody Negative (NEGATIVE) 06/19/18 06:35 - Hospital Course Hospital Course: Patient was evaluated and treated at [facility] from 06/18/18-06/26/18. CXR, EKG, CT abd/pelvis, and lab work were performed in the ED. Patient was found to have UTI and bacteremia. Blood cultures and urine cultures revealed Pseudomonas. Based on sensitivity, patient was started on Merrem(06/22). Sacral wound culture grew Klebsiella, also sensitive to Merrem, and yeast, for which patient is to begin treatment with Diflucan for 3 days. Patient's Parkinson's was treated with his home meds. HTN treated with clonidine patch and metoprolol. DM2 controlled on an insulin sliding scale. Patient is stable for discharge home. HPI on admission: :HPI: 83 year old male with past medical history significant for HTN, DM, Parkinson's dementia presents with fever. Patient apparently was brought in from the rehab facility earlier today. Of note, patient was recently discharged 06/13/18 from [facility] after a hospital course where he was diagnosed with Severe Sepsis secondary to suspected sacral decubitus ulcer. Patient is currently nonverbal and not able to provide a review of systems. History obtained from prior hospital records anne marie to patient's nonverbal status. Discharge Exam - Head Exam Head Exam: ATRAUMATIC, NORMAL INSPECTION, NORMOCEPHALIC - ENT Exam ENT Exam: Mucous Membranes Moist - Neck Exam Neck exam: Normal Inspection - Respiratory Exam Respiratory Exam: Clear to PA & Lateral, NORMAL BREATHING PATTERN, UNREMARKABLE. absent: Rhonchi, Wheezes - Cardiovascular Exam Cardiovascular Exam: REGULAR RHYTHM, +S1, +S2. absent: Tachycardia - GI/Abdominal Exam GI & Abdominal Exam: Normal Bowel Sounds. absent: Unremarkable (G tube ) - Extremities Exam Extremities exam: normal capillary refill, normal inspection, pedal pulses present - Back Exam Back exam: absent: rash noted (2x2 cm well healing sacral ulcer) - Neurological Exam Neurological exam: Alert (non communicative) - Skin Skin Exam: Dry, Intact, Normal Color, Warm Discharge Plan - Discharge Medications Prescriptions: Fluconazole IV 100mg/50 ml NS [Diflucan IV 100 mg/50 ml NS] 100 mg IV DAILY #3 ml - Follow Up Plan Condition: STABLE Disposition: REHAB FACILITY/REHAB UNIT Instructions: Urinary Tract Infection in Men (DC), Dysuria (GEN) Additional Instructions: Patient is stable for discharge back to rehab. Patient is being discharged with a PICC line for IV antibiotics. Patient has been started on Merrem 1g q8 on 06/22, as is to continue taking Merrem 1g q8 through 07/05, for a total of 14 days to treat Pseudomonas and Klebsiella infections. Patient should also begin Diflucan 100mg IV qd 06/27 and take through 06/29, for a total of 3 days. Patient is advised to follow up with his PMD within 1 week of discharge. Patient is to resume additional home meds as prescribed. Patient is advised to return to the ED with any worsening of symptoms. <Anant Ambrosio H - Last Filed: 06/26/18 16:10> Provider - Provider Date of Admission: 06/18/18 13:03 Attending physician: Cliff Hernandez MD Hospital Course - Lab Results Lab Results: Micro Results 06/23/18 14:44 Sacral Gram Stain - Final 06/23/18 14:44 Sacral Wound Culture - Preliminary Klebsiella Pneumoniae Ssp Pneu Yeast Species 06/23/18 17:24 Blood-Venous Blood Culture - Preliminary NO GROWTH AFTER 48 HOURS 06/23/18 17:24 Blood-Venous Blood Culture - Preliminary NO GROWTH AFTER 48 HOURS 06/23/18 14:05 Urine Urine Culture - Final Yeast Species 06/18/18 22:26 Urine,Mckinnon Urine Culture - Final Pseudomonas Aeruginosa 06/18/18 15:36 Blood Blood Culture - Final Pseudomonas Aeruginosa 06/18/18 15:36 Blood Gram Stain - Final 06/18/18 15:36 Blood Blood Culture - Preliminary Gram Negative Rashi 06/18/18 15:36 Blood Gram Stain - Final Most Recent Lab Values WBC 9.5 K/uL (4.8-10.8) 06/26/18 06:30 RBC 3.65 Mil/uL (4.40-5.90) L 06/26/18 06:30 Hgb 9.8 g/dL (12.0-18.0) L 06/26/18 06:30 Hct 29.8 % (35.0-51.0) L 06/26/18 06:30 MCV 81.7 fL (80.0-94.0) 06/26/18 06:30 MCH 26.8 pg (27.0-31.0) L 06/26/18 06:30 MCHC 32.8 g/dL (33.0-37.0) L 06/26/18 06:30 RDW 15.4 % (11.5-14.5) H 06/26/18 06:30 Plt Count 541 K/uL (130-400) H 06/26/18 06:30 MPV 7.5 fL (7.2-11.7) 06/26/18 06:30 Neut % (Auto) 55.2 % (50.0-75.0) 06/26/18 06:30 Lymph % (Auto) 32.0 % (20.0-40.0) 06/26/18 06:30 Erath % (Auto) 9.0 % (0.0-10.0) 06/26/18 06:30 Eos % (Auto) 3.4 % (0.0-4.0) 06/26/18 06:30 Baso % (Auto) 0.4 % (0.0-2.0) 06/26/18 06:30 Neut # (Auto) 5.3 K/uL (1.8-7.0) 06/26/18 06:30 Lymph # (Auto) 3.1 K/uL (1.0-4.3) 06/26/18 06:30 Erath # (Auto) 0.9 K/uL (0.0-0.8) H 06/26/18 06:30 Eos # (Auto) 0.3 K/uL (0.0-0.7) 06/26/18 06:30 Baso # (Auto) 0.0 K/uL (0.0-0.2) 06/26/18 06:30 Neutrophils % (Manual) 82 % (50-75) H 06/20/18 07:21 Band Neutrophils % 1 % (0-2) 06/20/18 07:21 Lymphocytes % (Manual) 7 % (20-40) L 06/20/18 07:21 Monocytes % (Manual) 6 % (0-10) 06/20/18 07:21 Eosinophils % (Manual) 4 % (0-4) 06/20/18 07:21 Platelet Estimate Normal (NORMAL) 06/20/18 07:21 Polychromasia Slight 06/19/18 06:35 Hypochromasia (manual) Slight 06/20/18 07:21 Poikilocytosis (manual Slight 06/20/18 07:21 Anisocytosis (manual) Slight 06/20/18 07:21 Target Cells Slight 06/18/18 10:37 PT 16.1 SECONDS (9.7-12.2) H 06/22/18 08:38 INR 1.5 06/22/18 08:38 APTT 36 SECONDS (21-34) H 06/18/18 10:37 Puncture Site Done by 06/19/18 13:14 pCO2 37 mm/Hg (35-45) 06/19/18 13:14 pO2 176 mm/Hg (80-100) H 06/19/18 13:14 HCO3 25.4 mmol/L (21-28) 06/19/18 13:14 ABG pH 7.43 (7.35-7.45) 06/19/18 13:14 ABG Total CO2 25.7 mmol/L (22-28) 06/19/18 13:14 ABG O2 Saturation 99.6 % (95-98) H 06/19/18 13:14 ABG Base Excess 0.5 mmol/L (-2.0-3.0) 06/19/18 13:14 Nader Test Pos 06/19/18 13:14 ABG Potassium 3.5 mmol/L (3.6-5.2) L 06/19/18 13:14 VBG pH 7.09 (7.32-7.43) L* 06/19/18 12:11 VBG pCO2 64 mmHg (40-60) H 06/19/18 12:11 VBG HCO3 16.2 mmol/L 06/19/18 12:11 VBG Total CO2 21.4 mmol/L (22-28) L 06/19/18 12:11 VBG O2 Sat (Calc) 99.8 % (40-65) H 06/19/18 12:11 VBG Base Excess -11.2 mmol/L (0.0-2.0) L 06/19/18 12:11 VBG Potassium > 20.0 mmol/L (3.6-5.2) H* 06/19/18 12:11 Sodium 146.0 mmol/l (132-148) 06/19/18 13:14 Chloride 117.0 mmol/L (98-107) H 06/19/18 13:14 Glucose 130 mg/dl (75-110) H 06/19/18 13:14 Lactate 0.6 mmol/L (0.7-2.1) L 06/19/18 13:14 FiO2 21 % 06/18/18 10:54 Crit Value Called To dahiana Hannah 06/19/18 12:11 Crit Value Called By Danielle chapman 06/19/18 12:11 Crit Value Read Back Y 06/19/18 12:11 Blood Gas Notified Time 1219 06/19/18 12:11 Sodium 140 mmol/L (132-148) 06/26/18 06:30 Potassium 4.1 mmol/L (3.6-5.2) 06/26/18 06:30 Chloride 103 mmol/L (98-107) 06/26/18 06:30 Carbon Dioxide 29 mmol/L (22-30) 06/26/18 06:30 Anion Gap 12 (10-20) 06/26/18 06:30 BUN 18 mg/dL (9-20) 06/26/18 06:30 Creatinine 0.8 mg/dL (0.8-1.5) 06/26/18 06:30 Est GFR ( Amer) > 60 06/26/18 06:30 Est GFR (Non-Af Amer) > 60 06/26/18 06:30 POC Glucose (mg/dL) 146 mg/dL (65-110) H 06/26/18 15:58 Random Glucose 104 mg/dL (75-110) 06/26/18 06:30 Lactic Acid 1.4 mmol/L (0.7-2.1) 06/18/18 13:31 Calcium 9.0 mg/dl (8.6-10.4) 06/26/18 06:30 Phosphorus 2.5 mg/dL (2.5-4.5) 06/26/18 06:30 Magnesium 2.1 mg/dL (1.6-2.3) 06/26/18 06:30 Total Bilirubin 0.3 mg/dL (0.2-1.3) 06/26/18 06:30 AST 40 U/L (17-59) 06/26/18 06:30 ALT 30 U/L (21-72) 06/26/18 06:30 Alkaline Phosphatase 127 U/L (38-126) H 06/26/18 06:30 Total Protein 6.3 g/dL (6.3-8.3) 06/26/18 06:30 Albumin 2.8 g/dL (3.5-5.0) L 06/26/18 06:30 Globulin 3.5 gm/dL (2.2-3.9) 06/26/18 06:30 Albumin/Globulin Ratio 0.8 (1.0-2.1) L 06/26/18 06:30 Procalcitonin 69.81 NG/ML (0.19-0.49) H 06/19/18 12:11 Arterial Blood Potassium 3.5 mmol/L (3.6-5.2) L 06/19/18 13:14 Venous Blood Potassium > 20.0 mmol/L (3.6-5.2) H* 06/19/18 12:11 Urine Color Wilda (YELLOW) 06/18/18 22:26 Urine Clarity Hazy (Clear) 06/18/18 22:26 Urine pH 7.0 (5.0-8.0) 06/18/18 22:26 Ur Specific Mark[place] 1.023 (1.003-1.030) 06/18/18 22:26 Urine Protein 2+ mg/dL (NEGATIVE) H 06/18/18 22:26 Urine Glucose (UA) Normal mg/dL (Normal) 06/18/18 22:26 Urine Ketones Negative mg/dL (NEGATIVE) 06/18/18 22:26 Urine Blood 3+ (NEGATIVE) H 06/18/18 22:26 Urine Nitrate Negative (NEGATIVE) 06/18/18 22: Urine Bilirubin Negative (NEGATIVE) 06/18/18 22:26 Urine Urobilinogen Normal mg/dL (0.2-1.0) 06/18/18 22:26 Ur Leukocyte Esterase 3+ Claudia/uL (Negative) H 06/18/18 22:26 Urine WBC (Auto) 227 /hpf (0-5) H 06/18/18 22:26 Urine RBC (Auto) 657 /hpf (0-3) H 06/18/18 22:26 Ur Squamous Epith Cells 1 /hpf (0-5) 06/18/18 22:26 Urine Bacteria Rare (<OCC) 06/18/18 22:26 Vancomycin Trough 13.8 ug/mL (5.0-10.0) H 06/21/18 04:00 Hepatitis A IgM Ab Negative (NEGATIVE) 06/19/18 06:35 Hep Bs Antigen Negative (NEGATIVE) 06/19/18 06:35 Hep B Core IgM Ab Negative (NEGATIVE) 06/19/18 06:35 Hepatitis C Antibody Negative (NEGATIVE) 06/19/18 06:35 Attending/Attestation - Attestation I have personally seen and examined this patient.: Yes I have fully participated in the care of the patient.: Yes I have reviewed all pertinent clinical information, including history, physical exam and plan: Yes Notes (Text): 06/26/18 16:10 Medical attending: Patient was seen and examined by me, agrees the above note by biomedical manager. As before, the patient is able to respond to his name being called. He tries to talk to us however were not able to understand and. The repeat blood and urine cultures returned. These new cultures are negative. As mentioned previously the initial blood cultures were positive for Pseudomonas growth admission he had a very elevated white blood cell count and since then these have declined his white blood cell count is now 10. He has been afebrile the past hours. Patient now has a PICC line continue with the IV meropenem and he should also continue with IV Diflucan for several more days as well. Patient will be returning to the rehabilitation facility that was previously. Thank you very much, Anant Ambrosio
--- NOTE | 2018-06-26 17:37 | CP.PCM.PN ---
Subjective - Date & Time of Evaluation Date of Evaluation: 06/26/18 Time of Evaluation: 07:00 - Subjective Subjective: weak bedridden more alert NAD Objective - Vital Signs/Intake and Output Vital Signs (last 24 hours): Temp Pulse Resp BP Pulse Ox 97.8 F 83 20 170/73 H 100 06/26/18 16:00 06/26/18 16:00 06/26/18 16:00 06/26/18 16:00 06/26/18 16:00 Intake and Output: 06/26/18 06/26/18 06:59 18:59 Intake Total 1600 Output Total 2000 Balance -400 - Medications Medications: Current Medications Aspirin (Aspirin Chewable) 81 mg PEG DAILY [facility] Last Admin: 06/26/18 09:09 Dose: 81 mg Carbidopa/Levodopa (Sinemet) 1 tab PEG 5XD [facility] Last Admin: 06/26/18 13:52 Dose: 1 tab Clonidine HCl (Catapres Tts1 0.1 Mg/24 Hr) 1 patch TD Q7D@1000 [facility] Last Admin: 06/25/18 10:25 Dose: Not Given Dextrose (Dextrose 50% Inj) 0 ml IV STAT PRN; Protocol PRN Reason: Hypoglycemia Protocol Dextrose (Glutose 15) 0 gm PO ONCE PRN; Protocol PRN Reason: Hypoglycemia Protocol Glucagon (Glucagen Diagnostic Kit) 0 mg IM STAT PRN; Protocol PRN Reason: Hypoglycemia Protocol Heparin Sodium (Porcine) (Heparin) 5,000 units SC Q12 [facility] Last Admin: 06/26/18 09:09 Dose: 5,000 units Home Med (Patient's Own Medication) 2 tab PEG DAILY [facility] Last Admin: 06/26/18 09:10 Dose: 2 tab Dextrose (Dextrose 5% In Water 1000 Ml) 1,000 mls @ 0 mls/hr IV .Q0M PRN; Protocol PRN Reason: Hypoglycemia Protocol Meropenem 1 gm/ Sodium (Chloride) 100 mls @ 100 mls/hr IVPB Q8H [facility]; Protocol Last Admin: 06/26/18 12:08 Dose: 100 mls/hr Sodium Chloride (Sodium Chloride 0.9%) 1,000 mls @ 100 mls/hr IV .Q10H [facility] Last Admin: 06/26/18 11:11 Dose: Not Given Insulin Aspart (Novolog) 0 unit SC ACHS [facility]; Protocol Last Admin: 06/26/18 12:05 Dose: Not Given Lactobacillus Acidophilus (Bacid Acidophilus) 1 cap PO BID [facility] Last Admin: 06/26/18 09:10 Dose: 1 cap Metoprolol Tartrate (Lopressor) 50 mg PEG BID [facility] Last Admin: 06/26/18 09:10 Dose: 50 mg Mirtazapine (Remeron) 15 mg PO HS [facility] Last Admin: 06/25/18 21:20 Dose: 15 mg - Labs Labs: 06/26/18 06:30 06/26/18 06:30 PT 16.1 SECONDS (9.7-12.2) H 06/22/18 08:38 INR 1.5 06/22/18 08:38 APTT 36 SECONDS (21-34) H 06/18/18 10:37 - Constitutional Appears: Non-toxic, Cachectic, Chronically Ill - Head Exam Head Exam: NORMOCEPHALIC - Eye Exam Eye Exam: absent: Scleral icterus - ENT Exam ENT Exam: Mucous Membranes Dry - Neck Exam Neck Exam: absent: Lymphadenopathy - Respiratory Exam Respiratory Exam: Decreased Breath Sounds - Cardiovascular Exam Cardiovascular Exam: REGULAR RHYTHM - GI/Abdominal Exam GI & Abdominal Exam: Distended, Soft - Rectal Exam Rectal Exam: Deferred - Exam Exam: NORMAL INSPECTION - Extremities Exam Extremities Exam: absent: Pedal Edema Assessment and Plan (1) UTI (urinary tract infection) Status: Acute (2) Bacteremia Status: Acute (3) Dehydration Status: Acute (4) Fever Status: Acute (5) Leukocytosis Status: Acute (6) Diabetes mellitus Status: Chronic (7) HTN (hypertension) Status: Chronic (8) Parkinson's disease dementia Status: Chronic - Assessment and Plan (Free Text) Assessment: cont iv rx for 14 days
[2018-06-27] MEDS: Meropenem 1 GM in Sodium Chloride 0.9% 100 ML IVPB SCH ×3 (03:15→20:28)
[2018-06-27] MEDS: (Novolog) Insulin Aspart, Recombinant 100 u/ml 10 ml vial SC SCH ×4 (07:59→22:37)
[2018-06-27] MEDS: Sodium Chloride 0.9% 1,000 ML IV SCH ×2 (08:00→17:57)
[2018-06-27] MEDS: Carbidopa/Levodopa 25/250 PEG SCH ×5 (08:55→20:30)
[2018-06-27] MEDS: Lactobacillus Acidophilus 500 MU Cap PO SCH ×2 (09:04→17:40)
[2018-06-27] MEDS: AZILECT 0.5 MG PEG SCH (09:04)
--- NOTE | 2018-06-27 17:48 | CP.PCM.PN ---
Subjective - Date & Time of Evaluation Date of Evaluation: 06/27/18 Time of Evaluation: 08:00 - Subjective Subjective: repeat blood c/s neg thus far IV rx reordered Objective - Vital Signs/Intake and Output Vital Signs (last 24 hours): Temp Pulse Resp BP Pulse Ox 98.3 F 80 20 159/76 H 100 06/27/18 16:00 06/27/18 16:00 06/27/18 16:00 06/27/18 16:00 06/27/18 16:00 Intake and Output: 06/27/18 06/27/18 06:59 18:59 Intake Total 2850 1200 Output Total 1800 1200 Balance 1050 0 - Medications Medications: Current Medications Aspirin (Aspirin Chewable) 81 mg PEG DAILY [facility] Last Admin: 06/27/18 09:04 Dose: 81 mg Carbidopa/Levodopa (Sinemet) 1 tab PEG 5XD [facility] Last Admin: 06/27/18 17:40 Dose: 1 tab Clonidine HCl (Catapres Tts1 0.1 Mg/24 Hr) 1 patch TD Q7D@1000 [facility] Last Admin: 06/25/18 10:25 Dose: Not Given Dextrose (Dextrose 50% Inj) 0 ml IV STAT PRN; Protocol PRN Reason: Hypoglycemia Protocol Dextrose (Glutose 15) 0 gm PO ONCE PRN; Protocol PRN Reason: Hypoglycemia Protocol Glucagon (Glucagen Diagnostic Kit) 0 mg IM STAT PRN; Protocol PRN Reason: Hypoglycemia Protocol Heparin Sodium (Porcine) (Heparin) 5,000 units SC Q12 [facility] Last Admin: 06/27/18 09:04 Dose: 5,000 units Home Med (Patient's Own Medication) 2 tab PEG DAILY [facility] Last Admin: 06/27/18 09:04 Dose: 2 tab Dextrose (Dextrose 5% In Water 1000 Ml) 1,000 mls @ 0 mls/hr IV .Q0M PRN; Protocol PRN Reason: Hypoglycemia Protocol Meropenem 1 gm/ Sodium (Chloride) 100 mls @ 100 mls/hr IVPB Q8H [facility]; Protocol Last Admin: 06/27/18 12:14 Dose: 100 mls/hr Sodium Chloride (Sodium Chloride 0.9%) 1,000 mls @ 100 mls/hr IV .Q10H [facility] Last Admin: 06/27/18 08:00 Dose: Not Given Insulin Aspart (Novolog) 0 unit SC ACHS [facility]; Protocol Last Admin: 06/27/18 17:40 Dose: Not Given Lactobacillus Acidophilus (Bacid Acidophilus) 1 cap PO BID [facility] Last Admin: 06/27/18 17:40 Dose: 1 cap Metoprolol Tartrate (Lopressor) 50 mg PEG BID [facility] Last Admin: 06/27/18 17:40 Dose: 50 mg Mirtazapine (Remeron) 15 mg PO HS [facility] Last Admin: 06/26/18 22:06 Dose: 15 mg - Labs Labs: 06/26/18 06:30 06/26/18 06:30 PT 16.1 SECONDS (9.7-12.2) H 06/22/18 08:38 INR 1.5 06/22/18 08:38 APTT 36 SECONDS (21-34) H 06/18/18 10:37 - Constitutional Appears: Confused, Cachectic, Chronically Ill - Head Exam Head Exam: NORMOCEPHALIC - Eye Exam Eye Exam: absent: Scleral icterus - ENT Exam ENT Exam: Mucous Membranes Dry - Neck Exam Neck Exam: absent: Lymphadenopathy - Respiratory Exam Respiratory Exam: Decreased Breath Sounds - Cardiovascular Exam Cardiovascular Exam: REGULAR RHYTHM - GI/Abdominal Exam GI & Abdominal Exam: Distended, Soft Assessment and Plan (1) UTI (urinary tract infection) Status: Acute (2) Bacteremia Status: Acute (3) Dehydration Status: Acute (4) Fever Status: Acute (5) Leukocytosis Status: Acute (6) Diabetes mellitus Status: Chronic (7) HTN (hypertension) Status: Chronic (8) Parkinson's disease dementia Status: Chronic
--- NOTE | 2018-06-27 17:56 | CP.PCM.PN ---
<Marlin Galicia - Last Filed: 06/27/18 20:03> Subjective - Date & Time of Evaluation Date of Evaluation: 06/27/18 Time of Evaluation: 10:20 - Subjective Subjective: Pt examined at bedside. No acute events overnight. Pt was planned for discharge back to [facility], however daughters rejected sending him back, and pt remained overnight. Social work has been attempting to speak w/ family regarding preferred [facility], but have been unable to get an adequate response. Pt is more communicative today and denies pain. Other ROS is limited due to pt status. Objective - Vital Signs/Intake and Output Vital Signs (last 24 hours): Temp Pulse Resp BP Pulse Ox 98.3 F 80 20 159/76 H 100 06/27/18 16:00 06/27/18 16:00 06/27/18 16:00 06/27/18 16:00 06/27/18 16:00 Intake and Output: 06/27/18 06/27/18 06:59 18:59 Intake Total 2850 1200 Output Total 1800 1200 Balance 1050 0 - Medications Medications: Current Medications Aspirin (Aspirin Chewable) 81 mg PEG DAILY [facility] Last Admin: 06/27/18 09:04 Dose: 81 mg Carbidopa/Levodopa (Sinemet) 1 tab PEG 5XD [facility] Last Admin: 06/27/18 17:40 Dose: 1 tab Clonidine HCl (Catapres Tts1 0.1 Mg/24 Hr) 1 patch TD Q7D@1000 [facility] Last Admin: 06/25/18 10:25 Dose: Not Given Dextrose (Dextrose 50% Inj) 0 ml IV STAT PRN; Protocol PRN Reason: Hypoglycemia Protocol Dextrose (Glutose 15) 0 gm PO ONCE PRN; Protocol PRN Reason: Hypoglycemia Protocol Glucagon (Glucagen Diagnostic Kit) 0 mg IM STAT PRN; Protocol PRN Reason: Hypoglycemia Protocol Heparin Sodium (Porcine) (Heparin) 5,000 units SC Q12 [facility] Last Admin: 06/27/18 09:04 Dose: 5,000 units Home Med (Patient's Own Medication) 2 tab PEG DAILY [facility] Last Admin: 06/27/18 09:04 Dose: 2 tab Dextrose (Dextrose 5% In Water 1000 Ml) 1,000 mls @ 0 mls/hr IV .Q0M PRN; Protocol PRN Reason: Hypoglycemia Protocol Meropenem 1 gm/ Sodium (Chloride) 100 mls @ 100 mls/hr IVPB Q8H [facility]; Protocol Last Admin: 06/27/18 12:14 Dose: 100 mls/hr Sodium Chloride (Sodium Chloride 0.9%) 1,000 mls @ 100 mls/hr IV .Q10H [facility] Last Admin: 06/27/18 08:00 Dose: Not Given Insulin Aspart (Novolog) 0 unit SC ACHS [facility]; Protocol Last Admin: 06/27/18 17:40 Dose: Not Given Lactobacillus Acidophilus (Bacid Acidophilus) 1 cap PO BID [facility] Last Admin: 06/27/18 17:40 Dose: 1 cap Metoprolol Tartrate (Lopressor) 50 mg PEG BID [facility] Last Admin: 06/27/18 17:40 Dose: 50 mg Mirtazapine (Remeron) 15 mg PO HS [facility] Last Admin: 06/26/18 22:06 Dose: 15 mg - Labs Labs: 06/26/18 06:30 06/26/18 06:30 PT 16.1 SECONDS (9.7-12.2) H 06/22/18 08:38 INR 1.5 06/22/18 08:38 APTT 36 SECONDS (21-34) H 06/18/18 10:37 - Constitutional Appears: No Acute Distress - Head Exam Head Exam: ATRAUMATIC, NORMAL INSPECTION, NORMOCEPHALIC - ENT Exam ENT Exam: Mucous Membranes Moist, Normal Exam - Neck Exam Neck Exam: Normal Inspection - Respiratory Exam Respiratory Exam: Decreased Breath Sounds, Clear to Ausculation Bilateral, NORMAL BREATHING PATTERN - Cardiovascular Exam Cardiovascular Exam: REGULAR RHYTHM, +S1, +S2. absent: Tachycardia, Murmur - GI/Abdominal Exam GI & Abdominal Exam: Soft, Tenderness, Normal Bowel Sounds. absent: Distended - Extremities Exam Extremities Exam: Normal Inspection. absent: Calf Tenderness, Pedal Edema - Neurological Exam Neurological Exam: Awake - Skin Skin Exam: Dry, Intact, Normal Color, Warm Assessment and Plan (1) Bacteremia Status: Acute (2) Dehydration Status: Acute (3) UTI (urinary tract infection) Status: Acute (4) Sacral decubitus ulcer Status: Acute - Assessment and Plan (Free Text) Assessment: Awaiting placement per social work. Pt stable. Continuing Merrem for total of 14 days. Subsequent blood/urine cultures negative to date. Bacteremia -improving, second cultures negative -blood cx-Pseudomonas + -f/u new blood cx -merrem 1g q8(06/22) -WBC trending down, afebrile -UTI/pyelo or enteritis suspected source of infection UTI/pyelonephritis -improving, second cx negative -urine cx + Pseudomonas -f/u new urine cx -merrem 1g q8 -NS @125/hr Parkinson's -resumed home meds carbi/levo 25/250 qd remeron 15mg hs Sacral Decubitus ulcer -stage 2, likely not source of leukocytosis -continue wound care -position changes q2 Transaminitis -likely 2/[address] -improving -Hep panel negative HTN, chronic -metoprolol 50mg BID -clonidine patch TD DM2 -Accuchecks ACHS -ISS low dose -glucerna PEG @50 Ppx -heparin 5000 sc q12 -lactobacillus BID Dispo: Awaiting placement per daughters' preference <Anant Ambrosio H - Last Filed: 06/28/18 12:37> Objective - Vital Signs/Intake and Output Vital Signs (last 24 hours): Temp Pulse Resp BP Pulse Ox 98.1 F 84 20 177/87 H 100 06/28/18 08:00 06/28/18 08:00 06/28/18 08:00 06/28/18 08:00 06/28/18 08:00 Intake and Output: 06/28/18 06/28/18 06:59 18:59 Intake Total 3000 Output Total 1900 Balance 1100 - Medications Medications: Current Medications Aspirin (Aspirin Chewable) 81 mg PEG DAILY [facility] Last Admin: 06/28/18 10:48 Dose: 81 mg Carbidopa/Levodopa (Sinemet) 1 tab PEG 5XD [facility] Last Admin: 06/28/18 10:51 Dose: 1 tab Clonidine HCl (Catapres Tts1 0.1 Mg/24 Hr) 1 patch TD Q7D@1000 [facility] Last Admin: 06/25/18 10:25 Dose: Not Given Dextrose (Dextrose 50% Inj) 0 ml IV STAT PRN; Protocol PRN Reason: Hypoglycemia Protocol Dextrose (Glutose 15) 0 gm PO ONCE PRN; Protocol PRN Reason: Hypoglycemia Protocol Glucagon (Glucagen Diagnostic Kit) 0 mg IM STAT PRN; Protocol PRN Reason: Hypoglycemia Protocol Heparin Sodium (Porcine) (Heparin) 5,000 units SC Q12 [facility] Last Admin: 06/28/18 10:48 Dose: 5,000 units Home Med (Patient's Own Medication) 2 tab PEG DAILY [facility] Last Admin: 06/28/18 10:49 Dose: 2 tab Dextrose (Dextrose 5% In Water 1000 Ml) 1,000 mls @ 0 mls/hr IV .Q0M PRN; Protocol PRN Reason: Hypoglycemia Protocol Meropenem 1 gm/ Sodium (Chloride) 100 mls @ 100 mls/hr IVPB Q8H [facility]; Protocol Last Admin: 06/28/18 03:00 Dose: 100 mls/hr Sodium Chloride (Sodium Chloride 0.9%) 1,000 mls @ 100 mls/hr IV .Q10H [facility] Last Admin: 06/28/18 04:13 Dose: 100 mls/hr Insulin Aspart (Novolog) 0 unit SC ACHS [facility]; Protocol Last Admin: 06/28/18 08:02 Dose: Not Given Lactobacillus Acidophilus (Bacid Acidophilus) 1 cap PO BID [facility] Last Admin: 06/28/18 10:48 Dose: 1 cap Metoprolol Tartrate (Lopressor) 50 mg PEG BID [facility] Last Admin: 06/28/18 10:53 Dose: 50 mg Mirtazapine (Remeron) 15 mg PO HS [facility] Last Admin: 06/27/18 22:39 Dose: 15 mg - Labs Labs: 06/28/18 06:41 06/28/18 06:41 PT 16.1 SECONDS (9.7-12.2) H 06/22/18 08:38 INR 1.5 06/22/18 08:38 APTT 36 SECONDS (21-34) H 06/18/18 10:37 Attending/Attestation - Attestation I have personally seen and examined this patient.: Yes I have fully participated in the care of the patient.: Yes I have reviewed all pertinent clinical information, including history, physical exam and plan: Yes Notes (Text): 06/28/18 12:36 Medical attending: Patient was seen and examined by me. Agree with the above note by the resident The patient was not in any acute distress however he remains somulent. He was able to awake with his name being called and look at us and very slowly interact with us. He now has a PICC line and will need a total of 14 days of IV meropenom. Family did not want patient to go back to previous facility so now he remains here for the time being Anant Ambrosio
[2018-06-28] MEDS: Meropenem 1 GM in Sodium Chloride 0.9% 100 ML IVPB SCH ×3 (03:00→20:56)
[2018-06-28] MEDS: Sodium Chloride 0.9% 1,000 ML IV SCH ×3 (04:13→22:37)
[2018-06-28 06:58] LABS: BASO # 0.1 K/uL (0.0-0.2); BASO % 0.7 % (0.0-2.0); EOS # 0.3 K/uL (0.0-0.7); EOS % 3.7 % (0.0-4.0); HEMOGLOBIN 9.6 g/dL (12.0-18.0); LYMPH # 2.3 K/uL (1.0-4.3); LYMPH % 31.2 % (20.0-40.0); MEAN CELL VOLUME 82.1 fL (80.0-94.0); MEAN CORPUSCULAR HEMOGLOBIN 27.2 pg (27.0-31.0); MEAN CORPUSCULAR HGB CONC 33.1 g/dL (33.0-37.0); MEAN PLATELET VOLUME 7.8 fL (7.2-11.7); MONO # 0.6 K/uL (0.0-0.8); NEUT % 55.4 % (50.0-75.0); NRBC % 0.1 % (0.0-2.0); RBC 3.54 Mil/uL (4.40-5.90); RED CELL DISTRIBUTION WIDTH 15.4 % (11.5-14.5); WHITE BLOOD COUNT 7.2 K/uL (4.8-10.8)
[2018-06-28 07:46] LABS: ALB/GLOB RATIO 0.8 (1.0-2.1); ALBUMIN 2.7 g/dL (3.5-5.0); ALT/SGPT 24 U/L (21-72); AST/SGOT 21 U/L (17-59); BLOOD UREA NITROGEN 20 mg/dL (9-20); CALCIUM 8.9 mg/dl (8.6-10.4); GFR NON-AFRICAN AMERICAN > 60
[2018-06-28] MEDS: (Novolog) Insulin Aspart, Recombinant 100 u/ml 10 ml vial SC SCH ×4 (08:02→21:54)
[2018-06-28] MEDS: Carbidopa/Levodopa 25/250 PEG SCH ×5 (08:19→20:00)
[2018-06-28] MEDS: Lactobacillus Acidophilus 500 MU Cap PO SCH ×2 (10:48→18:24)
[2018-06-28] MEDS: AZILECT 0.5 MG PEG SCH (10:49)
--- NOTE | 2018-06-28 13:08 | CP.PCM.PN ---
Subjective - Date & Time of Evaluation Date of Evaluation: 06/28/18 Time of Evaluation: 09:00 - Subjective Subjective: Patient was seen earlier in the morning by me with emergency medical service coordinator The patient was sleeping - however he woke up and looked at use when we called out his name. He was able to squeeze my hand He tried to speak, however we simply could not make out what he was saying The patient now has a PICC line and needs total 14 days of meorpenon. Family did not want patient going back to [place] so at this time patient remains here. Objective - Vital Signs/Intake and Output Vital Signs (last 24 hours): Temp Pulse Resp BP Pulse Ox 98.1 F 84 20 177/87 H 100 06/28/18 08:00 06/28/18 08:00 06/28/18 08:00 06/28/18 08:00 06/28/18 08:00 Intake and Output: 06/28/18 06/28/18 06:59 18:59 Intake Total 3000 Output Total 1900 Balance 1100 - Medications Medications: Current Medications Aspirin (Aspirin Chewable) 81 mg PEG DAILY [facility] Last Admin: 06/28/18 10:48 Dose: 81 mg Carbidopa/Levodopa (Sinemet) 1 tab PEG 5XD [facility] Last Admin: 06/28/18 10:51 Dose: 1 tab Clonidine HCl (Catapres Tts1 0.1 Mg/24 Hr) 1 patch TD Q7D@1000 [facility] Last Admin: 06/25/18 10:25 Dose: Not Given Dextrose (Dextrose 50% Inj) 0 ml IV STAT PRN; Protocol PRN Reason: Hypoglycemia Protocol Dextrose (Glutose 15) 0 gm PO ONCE PRN; Protocol PRN Reason: Hypoglycemia Protocol Glucagon (Glucagen Diagnostic Kit) 0 mg IM STAT PRN; Protocol PRN Reason: Hypoglycemia Protocol Heparin Sodium (Porcine) (Heparin) 5,000 units SC Q12 [facility] Last Admin: 06/28/18 10:48 Dose: 5,000 units Home Med (Patient's Own Medication) 2 tab PEG DAILY [facility] Last Admin: 06/28/18 10:49 Dose: 2 tab Dextrose (Dextrose 5% In Water 1000 Ml) 1,000 mls @ 0 mls/hr IV .Q0M PRN; Protocol PRN Reason: Hypoglycemia Protocol Meropenem 1 gm/ Sodium (Chloride) 100 mls @ 100 mls/hr IVPB Q8H [facility]; Protocol Last Admin: 06/28/18 03:00 Dose: 100 mls/hr Sodium Chloride (Sodium Chloride 0.9%) 1,000 mls @ 100 mls/hr IV .Q10H [facility] Last Admin: 06/28/18 04:13 Dose: 100 mls/hr Insulin Aspart (Novolog) 0 unit SC ACHS [facility]; Protocol Last Admin: 06/28/18 08:02 Dose: Not Given Lactobacillus Acidophilus (Bacid Acidophilus) 1 cap PO BID [facility] Last Admin: 06/28/18 10:48 Dose: 1 cap Metoprolol Tartrate (Lopressor) 50 mg PEG BID [facility] Last Admin: 06/28/18 10:53 Dose: 50 mg Mirtazapine (Remeron) 15 mg PO HS [facility] Last Admin: 06/27/18 22:39 Dose: 15 mg - Labs Labs: 06/28/18 06:41 06/28/18 06:41 PT 16.1 SECONDS (9.7-12.2) H 06/22/18 08:38 INR 1.5 06/22/18 08:38 APTT 36 SECONDS (21-34) H 06/18/18 10:37 - Constitutional Appears: Unkempt, Confused, Chronically Ill - Head Exam Additional comments: Sunken eye/orbital area, - ENT Exam ENT Exam: Mucous Membranes Moist - Respiratory Exam Respiratory Exam: Clear to Ausculation Bilateral, NORMAL BREATHING PATTERN - Cardiovascular Exam Cardiovascular Exam: REGULAR RHYTHM - GI/Abdominal Exam GI & Abdominal Exam: Soft, Normal Bowel Sounds - Neurological Exam Neurological Exam: Alert, Awake Neuro motor strength exam: Left Upper Extremity: 3, Right Upper Extremity: 3 - Psychiatric Exam Psychiatric exam: Depressed, Flat Affect - Skin Skin Exam: Normal Color, Warm Assessment and Plan - Assessment and Plan (Free Text) Assessment: - Assessment and Plan (Free Text) Assessment: Awaiting placement per social work. Pt stable. Continuing Merrem for total of 14 days. Subsequent blood/urine cultures negative to date. Bacteremia 06/28: Now day 7 of the IV meropenon. Total needed is 14 days. The repeat Blood negative, the urine repeat showed some yeast -improving, second cultures negative -blood cx-Pseudomonas + -f/u new blood cx -merrem 1g q8(06/22) -WBC trending down, afebrile -UTI/pyelo or enteritis suspected source of infection UTI/pyelonephritis 06/28 Urine culture negative -improving, second cx negative -urine cx + Pseudomonas -f/u new urine cx -merrem 1g q8 -NS @125/hr Parkinson's -resumed home meds carbi/levo 25/250 qd remeron 15mg hs Sacral Decubitus ulcer 06/28 the culture of wound shows klebsiella. IV abx meropenom is sensitive to the bacteria -stage 2, -continue wound care -position changes q2 Transaminitis -likely 2/[address] -improving -Hep panel negative HTN, chronic -metoprolol 50mg BID -clonidine patch TD DM2 -Accuchecks ACHS -ISS low dose -glucerna PEG @50 Ppx -heparin 5000 sc q12 -lactobacillus BID
--- NOTE | 2018-06-29 03:15 | CP.PCM.PN ---
<Megan Pruitt P - Last Filed: 06/29/18 11:11> Subjective - Date & Time of Evaluation Date of Evaluation: 06/29/18 Time of Evaluation: 03:15 - Subjective Subjective: PGY-1 Progress note for hospitalist. Patient was seen and evaluated at bedside. Nurse called as patient pulled his g- tube overnight. I reinserted the tube as instructed by surgery's previous consult note. The nurse was able to flush saline into the tube, but no gastric contents could be aspirated. residential manager called, who reinserted g-tube to ensure proper placement. Feedings restarted. Patient is otherwise comfortable, in no acute distress. He has mittens on at this time. Unable to obtain ROS as patient is non-verbal. Objective - Vital Signs/Intake and Output Vital Signs (last 24 hours): Temp Pulse Resp BP Pulse Ox 98.9 F 76 20 157/88 H 97 06/29/18 00:00 06/29/18 00:00 06/29/18 00:00 06/29/18 00:00 06/29/18 00:00 Intake and Output: 06/28/18 06/29/18 18:59 06:59 Intake Total 3000 Output Total 1200 1200 Balance 1800 -1200 - Medications Medications: Current Medications Aspirin (Aspirin Chewable) 81 mg PEG DAILY [facility] Last Admin: 06/28/18 10:48 Dose: 81 mg Carbidopa/Levodopa (Sinemet) 1 tab PEG 5XD [facility] Last Admin: 06/28/18 20:00 Dose: 1 tab Clonidine HCl (Catapres Tts1 0.1 Mg/24 Hr) 1 patch TD Q7D@1000 [facility] Last Admin: 06/25/18 10:25 Dose: Not Given Dextrose (Dextrose 50% Inj) 0 ml IV STAT PRN; Protocol PRN Reason: Hypoglycemia Protocol Dextrose (Glutose 15) 0 gm PO ONCE PRN; Protocol PRN Reason: Hypoglycemia Protocol Glucagon (Glucagen Diagnostic Kit) 0 mg IM STAT PRN; Protocol PRN Reason: Hypoglycemia Protocol Heparin Sodium (Porcine) (Heparin) 5,000 units SC Q12 [facility] Last Admin: 06/28/18 21:56 Dose: 5,000 units Home Med (Patient's Own Medication) 2 tab PEG DAILY [facility] Last Admin: 06/28/18 10:49 Dose: 2 tab Dextrose (Dextrose 5% In Water 1000 Ml) 1,000 mls @ 0 mls/hr IV .Q0M PRN; Protocol PRN Reason: Hypoglycemia Protocol Meropenem 1 gm/ Sodium (Chloride) 100 mls @ 100 mls/hr IVPB Q8H [facility]; Protocol Last Admin: 06/28/18 20:56 Dose: 100 mls/hr Sodium Chloride (Sodium Chloride 0.9%) 1,000 mls @ 100 mls/hr IV .Q10H [facility] Last Admin: 06/28/18 22:37 Dose: Not Given Insulin Aspart (Novolog) 0 unit SC ACHS [facility]; Protocol Last Admin: 06/28/18 21:54 Dose: Not Given Lactobacillus Acidophilus (Bacid Acidophilus) 1 cap PO BID [facility] Last Admin: 06/28/18 18:24 Dose: 1 cap Metoprolol Tartrate (Lopressor) 50 mg PEG BID [facility] Last Admin: 06/28/18 18:25 Dose: 50 mg Mirtazapine (Remeron) 15 mg PO HS [facility] Last Admin: 06/28/18 21:55 Dose: 15 mg - Labs Labs: 06/28/18 06:41 06/28/18 06:41 PT 16.1 SECONDS (9.7-12.2) H 06/22/18 08:38 INR 1.5 06/22/18 08:38 APTT 36 SECONDS (21-34) H 06/18/18 10:37 - Head Exam Head Exam: ATRAUMATIC, NORMOCEPHALIC - Eye Exam Eye Exam: EOMI - ENT Exam ENT Exam: Mucous Membranes Moist - Neck Exam Neck Exam: Normal Inspection - Respiratory Exam Respiratory Exam: Clear to Ausculation Bilateral. absent: Rales, Rhonchi, Wheezes - Cardiovascular Exam Cardiovascular Exam: REGULAR RHYTHM, +S1, +S2 - GI/Abdominal Exam GI & Abdominal Exam: Soft. absent: Guarding, Tenderness, Rebound Additional comments: G tube site is clean, dry and intact. - Neurological Exam Additional comments: somnolent - Skin Skin Exam: Dry, Normal Color, Warm Assessment and Plan - Assessment and Plan (Free Text) Plan: Awaiting placement per social work. Pt stable. Continuing Merrem for total of 14 days. Subsequent blood/urine cultures negative to date. Bacteremia 06/29: Dy 8 of IV meropenem -improving, 06/23 cultures negative -06/18 blood cx-Pseudomonas + -merrem 1g q8(06/22) -no white count, afebrile -UTI/pyelo or enteritis suspected source of infection UTI/pyelonephritis -improving, -06/18 urine cx + Pseudomonas -06/23 urine cx + marisol albicans -merrem 1g q8 -NS @125/hr Parkinson's -resumed home meds carbi/levo 25/250 qd remeron 15mg hs Sacral Decubitus ulcer 06/28 wound cx + for klebsiella. IV abx meropenom is sensitive to the bacteria -stage 2, likely not source of leukocytosis -continue wound care -position changes q2 Transaminitis -likely 2/[address] -improving -Hep panel negative HTN, chronic -metoprolol 50mg BID -clonidine patch TD DM2 -Accuchecks ACHS -ISS low dose -glucerna PEG @50 Ppx -heparin 5000 sc q12 -lactobacillus BID <Anant Ambrosio - Last Filed: 06/29/18 13:07> Objective - Vital Signs/Intake and Output Vital Signs (last 24 hours): Temp Pulse Resp BP Pulse Ox 98.4 F 78 20 144/76 97 06/29/18 08:00 06/29/18 08:00 06/29/18 08:00 06/29/18 08:00 06/29/18 08:00 Intake and Output: 06/29/18 06/29/18 06:59 18:59 Intake Total 1200 Output Total 1200 700 Balance -1200 500 - Medications Medications: Current Medications Aspirin (Aspirin Chewable) 81 mg PEG DAILY [facility] Last Admin: 06/29/18 09:34 Dose: 81 mg Carbidopa/Levodopa (Sinemet) 1 tab PEG 5XD [facility] Last Admin: 06/29/18 09:33 Dose: 1 tab Clonidine HCl (Catapres Tts1 0.1 Mg/24 Hr) 1 patch TD Q7D@1000 [facility] Last Admin: 06/25/18 10:25 Dose: Not Given Dextrose (Dextrose 50% Inj) 0 ml IV STAT PRN; Protocol PRN Reason: Hypoglycemia Protocol Dextrose (Glutose 15) 0 gm PO ONCE PRN; Protocol PRN Reason: Hypoglycemia Protocol Glucagon (Glucagen Diagnostic Kit) 0 mg IM STAT PRN; Protocol PRN Reason: Hypoglycemia Protocol Heparin Sodium (Porcine) (Heparin) 5,000 units SC Q12 [facility] Last Admin: 06/29/18 09:34 Dose: 5,000 units Home Med (Patient's Own Medication) 2 tab PEG DAILY [facility] Last Admin: 06/29/18 09:34 Dose: 2 tab Dextrose (Dextrose 5% In Water 1000 Ml) 1,000 mls @ 0 mls/hr IV .Q0M PRN; Protocol PRN Reason: Hypoglycemia Protocol Meropenem 1 gm/ Sodium (Chloride) 100 mls @ 100 mls/hr IVPB Q8H [facility]; Protocol Last Admin: 06/29/18 12:48 Dose: 100 mls/hr Sodium Chloride (Sodium Chloride 0.9%) 1,000 mls @ 100 mls/hr IV .Q10H [facility] Last Admin: 06/29/18 09:34 Dose: Not Given Insulin Aspart (Novolog) 0 unit SC ACHS [facility]; Protocol Last Admin: 06/29/18 12:05 Dose: Not Given Lactobacillus Acidophilus (Bacid Acidophilus) 1 cap PO BID [facility] Last Admin: 06/29/18 09:33 Dose: 1 cap Metoprolol Tartrate (Lopressor) 50 mg PEG BID [facility] Last Admin: 06/29/18 09:33 Dose: 50 mg Mirtazapine (Remeron) 15 mg PO HS [facility] Last Admin: 06/28/18 21:55 Dose: 15 mg - Labs Labs: 06/29/18 07:24 06/29/18 07:24 PT 16.1 SECONDS (9.7-12.2) H 06/22/18 08:38 INR 1.5 06/22/18 08:38 APTT 36 SECONDS (21-34) H 06/18/18 10:37 Attending/Attestation - Attestation I have personally seen and examined this patient.: Yes I have fully participated in the care of the patient.: Yes I have reviewed all pertinent clinical information, including history, physical exam and plan: Yes Notes (Text): 06/29/18 13:03 Medical attending: Patient was seen and examined by me. Agree with the above note by the resident The patient was not in any acute distress when I came and saw the patient. Today he seemed more awake than usual - the patient immediately looked at me when I entered the room. He speaks with a whisper - but it seems like he was able to say he was feeling "alright"
[2018-06-29] MEDS: Sodium Chloride 0.9% 1,000 ML IV SCH ×2 (03:58→09:34)
[2018-06-29] MEDS: Meropenem 1 GM in Sodium Chloride 0.9% 100 ML IVPB SCH ×3 (03:58→20:58)
--- NOTE | 2018-06-29 06:13 | CP.PCM.PCO ---
Physician Communication Note - Physician Communication Note Physician Communication Note: G-Tube dislodged, replaced w/o complication, resume feeds
[2018-06-29] MEDS: (Novolog) Insulin Aspart, Recombinant 100 u/ml 10 ml vial SC SCH ×4 (08:05→21:00)
[2018-06-29 08:08] LABS: BASO % 0.4 % (0.0-2.0); EOS # 0.2 K/uL (0.0-0.7); EOS % 2.9 % (0.0-4.0); HEMOGLOBIN 9.9 g/dL (12.0-18.0); LYMPH # 3.1 K/uL (1.0-4.3); LYMPH % 41.3 % (20.0-40.0); MEAN CELL VOLUME 82.3 fL (80.0-94.0); MEAN CORPUSCULAR HEMOGLOBIN 26.6 pg (27.0-31.0); MEAN CORPUSCULAR HGB CONC 32.3 g/dL (33.0-37.0); MEAN PLATELET VOLUME 7.8 fL (7.2-11.7); MONO # 0.6 K/uL (0.0-0.8); MONO % 7.6 % (0.0-10.0); NEUT # 3.6 K/uL (1.8-7.0); NEUT % 47.8 % (50.0-75.0); NRBC % 0.1 % (0.0-2.0); RBC 3.71 Mil/uL (4.40-5.90); RED CELL DISTRIBUTION WIDTH 16.1 % (11.5-14.5); WHITE BLOOD COUNT 7.6 K/uL (4.8-10.8)
[2018-06-29 08:11] LABS: BLOOD UREA NITROGEN 20 mg/dL (9-20); GFR NON-AFRICAN AMERICAN > 60
[2018-06-29 08:12] LABS: ALB/GLOB RATIO 0.8 (1.0-2.1); ALBUMIN 2.8 g/dL (3.5-5.0); ALT/SGPT 37 U/L (21-72); AST/SGOT 35 U/L (17-59); CALCIUM 8.9 mg/dl (8.6-10.4)
[2018-06-29] MEDS: Lactobacillus Acidophilus 500 MU Cap PO SCH ×2 (09:33→17:07)
[2018-06-29] MEDS: Carbidopa/Levodopa 25/250 PEG SCH ×5 (09:33→20:59)
[2018-06-29] MEDS: AZILECT 0.5 MG PEG SCH (09:34)
--- NOTE | 2018-06-29 16:16 | CP.PCM.PN ---
Subjective - Date & Time of Evaluation Date of Evaluation: 06/29/18 Time of Evaluation: 08:00 - Subjective Subjective: events noted nad Objective - Vital Signs/Intake and Output Vital Signs (last 24 hours): Temp Pulse Resp BP Pulse Ox 98.4 F 78 20 195/85 H 97 06/29/18 08:00 06/29/18 08:00 06/29/18 08:00 06/29/18 16:14 06/29/18 08:00 Intake and Output: 06/29/18 06/29/18 06:59 18:59 Intake Total 2500 Output Total 1200 1900 Balance -1200 600 - Medications Medications: Current Medications Aspirin (Aspirin Chewable) 81 mg PEG DAILY [facility] Last Admin: 06/29/18 09:34 Dose: 81 mg Carbidopa/Levodopa (Sinemet) 1 tab PEG 5XD [facility] Last Admin: 06/29/18 16:14 Dose: 1 tab Clonidine HCl (Catapres Tts1 0.1 Mg/24 Hr) 1 patch TD Q7D@1000 [facility] Last Admin: 06/25/18 10:25 Dose: Not Given Dextrose (Dextrose 50% Inj) 0 ml IV STAT PRN; Protocol PRN Reason: Hypoglycemia Protocol Dextrose (Glutose 15) 0 gm PO ONCE PRN; Protocol PRN Reason: Hypoglycemia Protocol Glucagon (Glucagen Diagnostic Kit) 0 mg IM STAT PRN; Protocol PRN Reason: Hypoglycemia Protocol Heparin Sodium (Porcine) (Heparin) 5,000 units SC Q12 [facility] Last Admin: 06/29/18 09:34 Dose: 5,000 units Home Med (Patient's Own Medication) 2 tab PEG DAILY [facility] Last Admin: 06/29/18 09:34 Dose: 2 tab Dextrose (Dextrose 5% In Water 1000 Ml) 1,000 mls @ 0 mls/hr IV .Q0M PRN; Protocol PRN Reason: Hypoglycemia Protocol Meropenem 1 gm/ Sodium (Chloride) 100 mls @ 100 mls/hr IVPB Q8H [facility]; Protocol Last Admin: 06/29/18 12:48 Dose: 100 mls/hr Sodium Chloride (Sodium Chloride 0.9%) 1,000 mls @ 100 mls/hr IV .Q10H [facility] Last Admin: 06/29/18 09:34 Dose: Not Given Insulin Aspart (Novolog) 0 unit SC ACHS [facility]; Protocol Last Admin: 06/29/18 12:05 Dose: Not Given Lactobacillus Acidophilus (Bacid Acidophilus) 1 cap PO BID [facility] Last Admin: 06/29/18 09:33 Dose: 1 cap Metoprolol Tartrate (Lopressor) 50 mg PEG BID [facility] Mirtazapine (Remeron) 15 mg PO HS [facility] Last Admin: 06/28/18 21:55 Dose: 15 mg - Labs Labs: 06/29/18 07:24 06/29/18 07:24 PT 16.1 SECONDS (9.7-12.2) H 06/22/18 08:38 INR 1.5 06/22/18 08:38 APTT 36 SECONDS (21-34) H 06/18/18 10:37 - Constitutional Appears: Non-toxic, Chronically Ill - Head Exam Head Exam: NORMOCEPHALIC - Eye Exam Eye Exam: PERRL - ENT Exam ENT Exam: Mucous Membranes Dry - Neck Exam Neck Exam: absent: Lymphadenopathy - Respiratory Exam Respiratory Exam: Decreased Breath Sounds - Cardiovascular Exam Cardiovascular Exam: REGULAR RHYTHM - GI/Abdominal Exam GI & Abdominal Exam: Distended, Soft Assessment and Plan (1) UTI (urinary tract infection) Status: Acute (2) Bacteremia Status: Acute (3) Dehydration Status: Acute (4) Fever Status: Acute (5) Leukocytosis Status: Acute (6) Diabetes mellitus Status: Chronic (7) HTN (hypertension) Status: Chronic (8) Parkinson's disease dementia Status: Chronic - Assessment and Plan (Free Text) Assessment: cont iv rx as ordered
[2018-06-30] MEDS: Meropenem 1 GM in Sodium Chloride 0.9% 100 ML IVPB SCH ×3 (03:33→20:36)
[2018-06-30 07:21] LABS: BASO % 0.5 % (0.0-2.0); EOS # 0.2 K/uL (0.0-0.7); EOS % 2.5 % (0.0-4.0); HEMOGLOBIN 10.3 g/dL (12.0-18.0); LYMPH # 3.8 K/uL (1.0-4.3); LYMPH % 43.5 % (20.0-40.0); MEAN CELL VOLUME 82.4 fL (80.0-94.0); MEAN CORPUSCULAR HEMOGLOBIN 26.7 pg (27.0-31.0); MEAN CORPUSCULAR HGB CONC 32.4 g/dL (33.0-37.0); MEAN PLATELET VOLUME 7.9 fL (7.2-11.7); MONO # 0.9 K/uL (0.0-0.8); MONO % 10.3 % (0.0-10.0); NEUT # 3.8 K/uL (1.8-7.0); NEUT % 43.2 % (50.0-75.0); NRBC % 0.1 % (0.0-2.0); RBC 3.87 Mil/uL (4.40-5.90); RED CELL DISTRIBUTION WIDTH 16.4 % (11.5-14.5); WHITE BLOOD COUNT 8.8 K/uL (4.8-10.8)
[2018-06-30] MEDS: (Novolog) Insulin Aspart, Recombinant 100 u/ml 10 ml vial SC SCH ×4 (07:40→22:05)
[2018-06-30 07:43] LABS: ALB/GLOB RATIO 0.9 (1.0-2.1); ALT/SGPT 36 U/L (21-72); AST/SGOT 26 U/L (17-59); BLOOD UREA NITROGEN 24 mg/dL (9-20); CALCIUM 9.2 mg/dl (8.6-10.4); GFR NON-AFRICAN AMERICAN > 60
[2018-06-30] MEDS: Carbidopa/Levodopa 25/250 PEG SCH ×4 (09:00→20:31)
--- NOTE | 2018-06-30 09:23 | CP.PCM.PN ---
<GaliciaMarlin - Last Filed: 06/30/18 16:30> Subjective - Date & Time of Evaluation Date of Evaluation: 06/30/18 Time of Evaluation: 07:25 - Subjective Subjective: Pt examined at bedside. No acute events overnight. Pt is more somnolent today and not answering questions. Per social work, pt's family has agreed to send him to [facility], however insurance is closed today for the holiday. Objective - Vital Signs/Intake and Output Vital Signs (last 24 hours): Temp Pulse Resp BP Pulse Ox 98.4 F 89 20 126/67 95 06/30/18 08:32 06/30/18 08:32 06/30/18 08:32 06/30/18 08:32 06/30/18 08:32 Intake and Output: 06/30/18 06/30/18 06:59 18:59 Intake Total 800 700 Output Total 1500 1 Balance -700 699 - Medications Medications: Current Medications Aspirin (Aspirin Chewable) 81 mg PEG DAILY [facility] Last Admin: 06/29/18 09:34 Dose: 81 mg Carbidopa/Levodopa (Sinemet) 1 tab PEG 5XD [facility] Last Admin: 06/29/18 20:59 Dose: 1 tab Clonidine HCl (Catapres Tts1 0.1 Mg/24 Hr) 1 patch TD Q7D@1000 [facility] Last Admin: 06/25/18 10:25 Dose: Not Given Dextrose (Dextrose 50% Inj) 0 ml IV STAT PRN; Protocol PRN Reason: Hypoglycemia Protocol Dextrose (Glutose 15) 0 gm PO ONCE PRN; Protocol PRN Reason: Hypoglycemia Protocol Glucagon (Glucagen Diagnostic Kit) 0 mg IM STAT PRN; Protocol PRN Reason: Hypoglycemia Protocol Heparin Sodium (Porcine) (Heparin) 5,000 units SC Q12 [facility] Last Admin: 06/29/18 21:03 Dose: 5,000 units Home Med (Patient's Own Medication) 2 tab PEG DAILY [facility] Last Admin: 06/29/18 09:34 Dose: 2 tab Dextrose (Dextrose 5% In Water 1000 Ml) 1,000 mls @ 0 mls/hr IV .Q0M PRN; Protocol PRN Reason: Hypoglycemia Protocol Meropenem 1 gm/ Sodium (Chloride) 100 mls @ 100 mls/hr IVPB Q8H KATERINA; Protocol Last Admin: 06/30/18 03:33 Dose: 100 mls/hr Insulin Aspart (Novolog) 0 unit SC ACHS [facility]; Protocol Last Admin: 06/30/18 07:40 Dose: Not Given Lactobacillus Acidophilus (Bacid Acidophilus) 1 cap PO BID [facility] Last Admin: 06/29/18 17:07 Dose: 1 cap Metoprolol Tartrate (Lopressor) 50 mg PEG BID [facility] Mirtazapine (Remeron) 15 mg PO HS [facility] Last Admin: 06/29/18 21:00 Dose: 15 mg - Labs Labs: 06/30/18 06:52 06/30/18 06:54 PT 16.1 SECONDS (9.7-12.2) H 06/22/18 08:38 INR 1.5 06/22/18 08:38 APTT 36 SECONDS (21-34) H 06/18/18 10:37 - Constitutional Appears: No Acute Distress - Head Exam Head Exam: ATRAUMATIC, NORMAL INSPECTION, NORMOCEPHALIC - ENT Exam ENT Exam: Mucous Membranes Moist, Normal Exam - Neck Exam Neck Exam: Normal Inspection - Respiratory Exam Respiratory Exam: Clear to Ausculation Bilateral, NORMAL BREATHING PATTERN. absent: Rhonchi, Wheezes - Cardiovascular Exam Cardiovascular Exam: REGULAR RHYTHM, +S1, +S2. absent: Tachycardia - GI/Abdominal Exam GI & Abdominal Exam: Soft, Normal Bowel Sounds. absent: Distended - Extremities Exam Extremities Exam: Normal Capillary Refill, Normal Inspection. absent: Pedal Edema - Neurological Exam Neurological Exam: absent: Awake - Skin Skin Exam: Dry, Intact, Normal Color, Warm Assessment and Plan (1) Bacteremia Status: Acute (2) Dehydration Status: Acute (3) UTI (urinary tract infection) Status: Acute (4) Sacral decubitus ulcer Status: Acute - Assessment and Plan (Free Text) Assessment: Awaiting placement per social work. Pt stable. Continuing Merrem for total of 14 days. Subsequent blood/urine cultures negative to date. Bacteremia -blood cx-Pseudomonas +(06/18) -blood cx neg(06/23) -merrem 1g q8(06/22) -no white count, afebrile -UTI/pyelo or enteritis suspected source of infection UTI/pyelonephritis -urine cx + Pseudomonas(06/18) -urine cx + marisol albicans(06/23) -merrem 1g q8(9/30) -NS @75/hr Parkinson's -resumed home meds carbi/levo 25/250 qd remeron 15mg hs Sacral Decubitus ulcer 06/28 wound cx + for klebsiella. IV abx meropenom is sensitive to the bacteria -stage 2, likely not source of leukocytosis -continue wound care -position changes q2 Transaminitis -likely 2/[address] -improving -Hep panel negative HTN, chronic -IVF restarted @75/hr after IVF stopped 2/2 pt hypertensive -metoprolol 50mg BID -clonidine patch TD DM2 -Accuchecks ACHS -ISS low dose -glucerna PEG @50 Ppx -heparin 5000 sc q12 -lactobacillus BID <Cliff Hernandez - Last Filed: 07/16/18 11:28> Objective - Vital Signs/Intake and Output Vital Signs (last 24 hours): Temp Pulse Resp BP Pulse Ox 97.4 F L 91 H 20 151/76 H 98 07/01/18 16:05 07/01/18 16:05 07/01/18 16:05 07/01/18 16:05 07/01/18 16:05 - Labs Labs: 06/30/18 06:52 06/30/18 06:54 PT 16.1 SECONDS (9.7-12.2) H 06/22/18 08:38 INR 1.5 06/22/18 08:38 APTT 36 SECONDS (21-34) H 06/18/18 10:37 Attending/Attestation - Attestation I have personally seen and examined this patient.: Yes I have fully participated in the care of the patient.: Yes I have reviewed all pertinent clinical information, including history, physical exam and plan: Yes Notes (Text): seen and examined by me Lying on bed,no distress,severe parkinson's disease continue antibiotics. we will discuss with family about the plan need 14days of antibiotics d/w Resident and I agree with the documentation
[2018-06-30] MEDS: AZILECT 0.5 MG PEG SCH (09:51)
[2018-06-30] MEDS: Lactobacillus Acidophilus 500 MU Cap PO SCH ×2 (09:52→18:50)
[2018-06-30] MEDS ORDERED: Sodium Chloride 0.9% 1,000 ML IV SCH (16:45)
[2018-06-30] MEDS: Sodium Chloride 0.9% 1,000 ML IV SCH (17:10)
[2018-07-01] MEDS: Sodium Chloride 0.9% 1,000 ML IV SCH (00:10)
[2018-07-01 01:27] VITALS: RESP 20
[2018-07-01] MEDS: Meropenem 1 GM in Sodium Chloride 0.9% 100 ML IVPB SCH ×2 (03:58→12:31)
[2018-07-01] MEDS: (Novolog) Insulin Aspart, Recombinant 100 u/ml 10 ml vial SC SCH ×3 (08:14→17:10)
[2018-07-01] MEDS: Carbidopa/Levodopa 25/250 PEG SCH ×4 (08:16→17:31)
[2018-07-01] MEDS: AZILECT 0.5 MG PEG SCH (09:03)
[2018-07-01] MEDS: Lactobacillus Acidophilus 500 MU Cap PO SCH ×2 (09:04→17:30)
--- NOTE | 2018-07-01 11:46 | CP.PCM.DIS ---
<Marlin Galicia - Last Filed: 07/01/18 13:49> Provider - Provider Date of Admission: 06/18/18 13:03 Attending physician: Cliff Hernandez MD Time Spent in preparation of Discharge (in minutes): 29 Diagnosis - Discharge Diagnosis (1) Bacteremia Status: Acute (2) Dehydration Status: Acute (3) UTI (urinary tract infection) Status: Acute (4) Sacral decubitus ulcer Status: Acute Hospital Course - Lab Results Lab Results: Micro Results 06/23/18 17:24 Blood-Venous Blood Culture - Final NO GROWTH AFTER 5 DAYS 06/23/18 17:24 Blood-Venous Gram Stain - Final TEST NOT PERFORMED 06/23/18 17:24 Blood-Venous Blood Culture - Final NO GROWTH AFTER 5 DAYS 06/23/18 17:24 Blood-Venous Gram Stain - Final TEST NOT PERFORMED 06/23/18 14:44 Sacral Gram Stain - Final 06/23/18 14:44 Sacral Wound Culture - Final Klebsiella Pneumoniae Ssp Pneu Harriett Albicans 06/23/18 14:05 Urine Urine Culture - Final Yeast Species 06/18/18 22:26 Urine,Mckinnon Urine Culture - Final Pseudomonas Aeruginosa 06/18/18 15:36 Blood Blood Culture - Final Pseudomonas Aeruginosa 06/18/18 15:36 Blood Gram Stain - Final 06/18/18 15:36 Blood Blood Culture - Preliminary Gram Negative Rashi 06/18/18 15:36 Blood Gram Stain - Final Most Recent Lab Values WBC 8.8 K/uL (4.8-10.8) 06/30/18 06:52 RBC 3.87 Mil/uL (4.40-5.90) L 06/30/18 06:52 Hgb 10.3 g/dL (12.0-18.0) L 06/30/18 06:52 Hct 31.9 % (35.0-51.0) L 06/30/18 06:52 MCV 82.4 fL (80.0-94.0) 06/30/18 06:52 MCH 26.7 pg (27.0-31.0) L 06/30/18 06:52 MCHC 32.4 g/dL (33.0-37.0) L 06/30/18 06:52 RDW 16.4 % (11.5-14.5) H 06/30/18 06:52 Plt Count 535 K/uL (130-400) H 06/30/18 06:52 MPV 7.9 fL (7.2-11.7) 06/30/18 06:52 Neut % (Auto) 43.2 % (50.0-75.0) L 06/30/18 06:52 Lymph % (Auto) 43.5 % (20.0-40.0) H 06/30/18 06:52 [place] % (Auto) 10.3 % (0.0-10.0) H 06/30/18 06:52 Eos % (Auto) 2.5 % (0.0-4.0) 06/30/18 06:52 Baso % (Auto) 0.5 % (0.0-2.0) 06/30/18 06:52 Neut # (Auto) 3.8 K/uL (1.8-7.0) 06/30/18 06:52 Lymph # (Auto) 3.8 K/uL (1.0-4.3) 06/30/18 06:52 [place] # (Auto) 0.9 K/uL (0.0-0.8) H 06/30/18 06:52 Eos # (Auto) 0.2 K/uL (0.0-0.7) 06/30/18 06:52 Baso # (Auto) 0.0 K/uL (0.0-0.2) 06/30/18 06:52 Neutrophils % (Manual) 82 % (50-75) H 06/20/18 07:21 Band Neutrophils % 1 % (0-2) 06/20/18 07:21 Lymphocytes % (Manual) 7 % (20-40) L 06/20/18 07:21 Monocytes % (Manual) 6 % (0-10) 06/20/18 07:21 Eosinophils % (Manual) 4 % (0-4) 06/20/18 07:21 Platelet Estimate Normal (NORMAL) 06/20/18 07:21 Polychromasia Slight 06/19/18 06:35 Hypochromasia (manual) Slight 06/20/18 07:21 Poikilocytosis (manual Slight 06/20/18 07:21 Anisocytosis (manual) Slight 06/20/18 07:21 Target Cells Slight 06/18/18 10:37 PT 16.1 SECONDS (9.7-12.2) H 06/22/18 08:38 INR 1.5 06/22/18 08:38 APTT 36 SECONDS (21-34) H 06/18/18 10:37 Puncture Site Done by 06/19/18 13:14 pCO2 37 mm/Hg (35-45) 06/19/18 13:14 pO2 176 mm/Hg (80-100) H 06/19/18 13:14 HCO3 25.4 mmol/L (21-28) 06/19/18 13:14 ABG pH 7.43 (7.35-7.45) 06/19/18 13:14 ABG Total CO2 25.7 mmol/L (22-28) 06/19/18 13:14 ABG O2 Saturation 99.6 % (95-98) H 06/19/18 13:14 ABG Base Excess 0.5 mmol/L (-2.0-3.0) 06/19/18 13:14 Nader Test Pos 06/19/18 13:14 ABG Potassium 3.5 mmol/L (3.6-5.2) L 06/19/18 13:14 VBG pH 7.09 (7.32-7.43) L* 06/19/18 12:11 VBG pCO2 64 mmHg (40-60) H 06/19/18 12:11 VBG HCO3 16.2 mmol/L 06/19/18 12:11 VBG Total CO2 21.4 mmol/L (22-28) L 06/19/18 12:11 VBG O2 Sat (Calc) 99.8 % (40-65) H 06/19/18 12:11 VBG Base Excess -11.2 mmol/L (0.0-2.0) L 06/19/18 12:11 VBG Potassium > 20.0 mmol/L (3.6-5.2) H* 06/19/18 12:11 Sodium 146.0 mmol/l (132-148) 06/19/18 13:14 Chloride 117.0 mmol/L (98-107) H 06/19/18 13:14 Glucose 130 mg/dl (75-110) H 06/19/18 13:14 Lactate 0.6 mmol/L (0.7-2.1) L 06/19/18 13:14 FiO2 21 % 06/18/18 10:54 Crit Value Called To dahiana Hannah 06/19/18 12:11 Crit Value Called By Danielle chapman 06/19/18 12:11 Crit Value Read Back Y 06/19/18 12:11 Blood Gas Notified Time 1219 06/19/18 12:11 Sodium 140 mmol/L (132-148) 06/30/18 06:54 Potassium 4.3 mmol/L (3.6-5.2) 06/30/18 06:54 Chloride 101 mmol/L (98-107) 06/30/18 06:54 Carbon Dioxide 32 mmol/L (22-30) H 06/30/18 06:54 Anion Gap 12 (10-20) 06/30/18 06:54 BUN 24 mg/dL (9-20) H 06/30/18 06:54 Creatinine 0.7 mg/dL (0.8-1.5) L 06/30/18 06:54 Est GFR ( Amer) > 60 06/30/18 06:54 Est GFR (Non-Af Amer) > 60 06/30/18 06:54 POC Glucose (mg/dL) 144 mg/dL (65-110) H 07/01/18 10:47 Random Glucose 124 mg/dL (75-110) H 06/30/18 06:54 Lactic Acid 1.4 mmol/L (0.7-2.1) 06/18/18 13:31 Calcium 9.2 mg/dl (8.6-10.4) 06/30/18 06:54 Phosphorus 2.5 mg/dL (2.5-4.5) 06/30/18 06:54 Magnesium 2.3 mg/dL (1.6-2.3) 06/30/18 06:54 Total Bilirubin 0.3 mg/dL (0.2-1.3) 06/30/18 06:54 AST 26 U/L (17-59) 06/30/18 06:54 ALT 36 U/L (21-72) 06/30/18 06:54 Alkaline Phosphatase 118 U/L (38-126) 06/30/18 06:54 Total Protein 6.6 g/dL (6.3-8.3) 06/30/18 06:54 Albumin 3.0 g/dL (3.5-5.0) L 06/30/18 06:54 Globulin 3.6 gm/dL (2.2-3.9) 06/30/18 06:54 Albumin/Globulin Ratio 0.9 (1.0-2.1) L 06/30/18 06:54 Procalcitonin 69.81 NG/ML (0.19-0.49) H 06/19/18 12:11 Arterial Blood Potassium 3.5 mmol/L (3.6-5.2) L 06/19/18 13:14 Venous Blood Potassium > 20.0 mmol/L (3.6-5.2) H* 06/19/18 12:11 Urine Color Wilda (YELLOW) 06/18/18 22:26 Urine Clarity Hazy (Clear) 06/18/18 22:26 Urine pH 7.0 (5.0-8.0) 06/18/18 22:26 Ur Specific [place] 1.023 (1.003-1.030) 06/18/18 22:26 Urine Protein 2+ mg/dL (NEGATIVE) H 06/18/18 22:26 Urine Glucose (UA) Normal mg/dL (Normal) 06/18/18 22:26 Urine Ketones Negative mg/dL (NEGATIVE) 06/18/18 22:26 Urine Blood 3+ (NEGATIVE) H 06/18/18 22:26 Urine Nitrate Negative (NEGATIVE) 06/18/18 22:26 Urine Bilirubin Negative (NEGATIVE) 06/18/18 22: Urine Urobilinogen Normal mg/dL (0.2-1.0) 06/18/18 22:26 Ur Leukocyte Esterase 3+ Claudia/uL (Negative) H 06/18/18 22:26 Urine WBC (Auto) 227 /hpf (0-5) H 06/18/18 22:26 Urine RBC (Auto) 657 /hpf (0-3) H 06/18/18 22:26 Ur Squamous Epith Cells 1 /hpf (0-5) 06/18/18 22:26 Urine Bacteria Rare (<OCC) 06/18/18 22:26 Vancomycin Trough 13.8 ug/mL (5.0-10.0) H 06/21/18 04:00 Hepatitis A IgM Ab Negative (NEGATIVE) 06/19/18 06:35 Hep Bs Antigen Negative (NEGATIVE) 06/19/18 06:35 Hep B Core IgM Ab Negative (NEGATIVE) 06/19/18 06:35 Hepatitis C Antibody Negative (NEGATIVE) 06/19/18 06:35 - Hospital Course Hospital Course: Patient was evaluated and treated at [facility] from 06/18/18-07/01/18. Patient presented febrile and tachycardic. Labs drawn showed leukocytosis. Blood cultures, urine cultures and would cultures were drawn; treated w/ IV Abx accordingly. Pt's HTN was managed with home medications. DM2 was treated with ISS. Pt resumed home meds for Parkinson's. Pt G-tube examined for function. Sacral decubitus ulcer treated by wound care. Pt advised to return to ED with any worsening of symptoms. HPI on admission: "HPI: 83 year old male with past medical history significant for HTN, DM, Parkinson's dementia presents with fever. Patient apparently was brought in from the rehab facility earlier today. Of note, patient was recently discharged 06/13/18 from [facility] after a hospital course where he was diagnosed with Severe Sepsis secondary to suspected sacral decubitus ulcer. Patient is currently nonverbal and not able to provide a review of systems. " Discharge Exam - Head Exam Head Exam: ATRAUMATIC, NORMAL INSPECTION, NORMOCEPHALIC - ENT Exam ENT Exam: Mucous Membranes Moist - Neck Exam Neck exam: Normal Inspection - Respiratory Exam Respiratory Exam: Decreased Breath Sounds, Clear to PA & Lateral, NORMAL BREATHING PATTERN, UNREMARKABLE - Cardiovascular Exam Cardiovascular Exam: REGULAR RHYTHM, +S1, +S2 - GI/Abdominal Exam GI & Abdominal Exam: Normal Bowel Sounds, Unremarkable - Skin Skin Exam: Dry, Intact, Normal Color, Warm Discharge Plan - Discharge Medications Prescriptions: Fluconazole IV 100mg/50 ml NS [Diflucan IV 100 mg/50 ml NS] 100 mg IV DAILY #3 ml - Follow Up Plan Condition: STABLE Disposition: TRANSF TO SNF Instructions: Urinary Tract Infection in Men (DC), Dysuria (GEN) Additional Instructions: Patient is stable for discharge back to rehab. Patient is being discharged with a PICC line for IV antibiotics. Patient has been started on Merrem 1g q8 on 06/22, as is to continue taking Merrem 1g q8 through 07/05, for a total of 14 days to treat Pseudomonas and Klebsiella infections. Patient should also begin Diflucan 100mg IV qd 07/01 and take through 07/03, for a total of 3 days. Patient is advised to follow up with his PMD within 1 week of discharge. Patient is to resume additional home meds as prescribed. Patient is advised to return to the ED with any worsening of symptoms. <Cliff Hernandez - Last Filed: 07/16/18 13:54> Provider - Provider Date of Admission: 06/18/18 13:03 Attending physician: Cliff Hernandez MD Hospital Course - Lab Results Lab Results: Micro Results 06/23/18 17:24 Blood-Venous Blood Culture - Final NO GROWTH AFTER 5 DAYS 06/23/18 17:24 Blood-Venous Gram Stain - Final TEST NOT PERFORMED 06/23/18 17:24 Blood-Venous Blood Culture - Final NO GROWTH AFTER 5 DAYS 06/23/18 17:24 Blood-Venous Gram Stain - Final TEST NOT PERFORMED 06/23/18 14:44 Sacral Gram Stain - Final 06/23/18 14:44 Sacral Wound Culture - Final Klebsiella Pneumoniae Ssp Pneu Harriett Albicans 06/23/18 14:05 Urine Urine Culture - Final Yeast Species 06/18/18 22:26 Urine,Mckinnon Urine Culture - Final Pseudomonas Aeruginosa 06/18/18 15:36 Blood Blood Culture - Final Pseudomonas Aeruginosa 06/18/18 15:36 Blood Gram Stain - Final 06/18/18 15:36 Blood Blood Culture - Preliminary Gram Negative Rashi 06/18/18 15:36 Blood Gram Stain - Final Most Recent Lab Values WBC 8.8 K/uL (4.8-10.8) 06/30/18 06:52 RBC 3.87 Mil/uL (4.40-5.90) L 06/30/18 06:52 Hgb 10.3 g/dL (12.0-18.0) L 06/30/18 06:52 Hct 31.9 % (35.0-51.0) L 06/30/18 06:52 MCV 82.4 fL (80.0-94.0) 06/30/18 06:52 MCH 26.7 pg (27.0-31.0) L 06/30/18 06:52 MCHC 32.4 g/dL (33.0-37.0) L 06/30/18 06:52 RDW 16.4 % (11.5-14.5) H 06/30/18 06:52 Plt Count 535 K/uL (130-400) H 06/30/18 06:52 MPV 7.9 fL (7.2-11.7) 06/30/18 06:52 Neut % (Auto) 43.2 % (50.0-75.0) L 06/30/18 06:52 Lymph % (Auto) 43.5 % (20.0-40.0) H 06/30/18 06:52 [place] % (Auto) 10.3 % (0.0-10.0) H 06/30/18 06:52 Eos % (Auto) 2.5 % (0.0-4.0) 06/30/18 06:52 Baso % (Auto) 0.5 % (0.0-2.0) 06/30/18 06:52 Neut # (Auto) 3.8 K/uL (1.8-7.0) 06/30/18 06:52 Lymph # (Auto) 3.8 K/uL (1.0-4.3) 06/30/18 06:52 [place] # (Auto) 0.9 K/uL (0.0-0.8) H 06/30/18 06:52 Eos # (Auto) 0.2 K/uL (0.0-0.7) 06/30/18 06:52 Baso # (Auto) 0.0 K/uL (0.0-0.2) 06/30/18 06:52 Neutrophils % (Manual) 82 % (50-75) H 06/20/18 07:21 Band Neutrophils % 1 % (0-2) 06/20/18 07:21 Lymphocytes % (Manual) 7 % (20-40) L 06/20/18 07:21 Monocytes % (Manual) 6 % (0-10) 06/20/18 07:21 Eosinophils % (Manual) 4 % (0-4) 06/20/18 07:21 Platelet Estimate Normal (NORMAL) 06/20/18 07:21 Polychromasia Slight 06/19/18 06:35 Hypochromasia (manual) Slight 06/20/18 07:21 Poikilocytosis (manual Slight 06/20/18 07:21 Anisocytosis (manual) Slight 06/20/18 07:21 Target Cells Slight 06/18/18 10:37 PT 16.1 SECONDS (9.7-12.2) H 06/22/18 08:38 INR 1.5 06/22/18 08:38 APTT 36 SECONDS (21-34) H 06/18/18 10:37 Puncture Site Done by 06/19/18 13:14 pCO2 37 mm/Hg (35-45) 06/19/18 13:14 pO2 176 mm/Hg (80-100) H 06/19/18 13:14 HCO3 25.4 mmol/L (21-28) 06/19/18 13:14 ABG pH 7.43 (7.35-7.45) 06/19/18 13:14 ABG Total CO2 25.7 mmol/L (22-28) 06/19/18 13:14 ABG O2 Saturation 99.6 % (95-98) H 06/19/18 13:14 ABG Base Excess 0.5 mmol/L (-2.0-3.0) 06/19/18 13:14 Nader Test Pos 06/19/18 13:14 ABG Potassium 3.5 mmol/L (3.6-5.2) L 06/19/18 13:14 VBG pH 7.09 (7.32-7.43) L* 06/19/18 12:11 VBG pCO2 64 mmHg (40-60) H 06/19/18 12:11 VBG HCO3 16.2 mmol/L 06/19/18 12:11 VBG Total CO2 21.4 mmol/L (22-28) L 06/19/18 12:11 VBG O2 Sat (Calc) 99.8 % (40-65) H 06/19/18 12:11 VBG Base Excess -11.2 mmol/L (0.0-2.0) L 06/19/18 12:11 VBG Potassium > 20.0 mmol/L (3.6-5.2) H* 06/19/18 12:11 Sodium 146.0 mmol/l (132-148) 06/19/18 13:14 Chloride 117.0 mmol/L (98-107) H 06/19/18 13:14 Glucose 130 mg/dl (75-110) H 06/19/18 13:14 Lactate 0.6 mmol/L (0.7-2.1) L 06/19/18 13:14 FiO2 21 % 06/18/18 10:54 Crit Value Called To dahiana Hannah 06/19/18 12:11 Crit Value Called By Danielle chapman 06/19/18 12:11 Crit Value Read Back Y 06/19/18 12:11 Blood Gas Notified Time 1219 06/19/18 12:11 Sodium 140 mmol/L (132-148) 06/30/18 06:54 Potassium 4.3 mmol/L (3.6-5.2) 06/30/18 06:54 Chloride 101 mmol/L (98-107) 06/30/18 06:54 Carbon Dioxide 32 mmol/L (22-30) H 06/30/18 06:54 Anion Gap 12 (10-20) 06/30/18 06:54 BUN 24 mg/dL (9-20) H 06/30/18 06:54 Creatinine 0.7 mg/dL (0.8-1.5) L 06/30/18 06:54 Est GFR ( Amer) > 60 06/30/18 06:54 Est GFR (Non-Af Amer) > 60 06/30/18 06:54 POC Glucose (mg/dL) 147 mg/dL (65-110) H 07/01/18 16:48 Random Glucose 124 mg/dL (75-110) H 06/30/18 06:54 Lactic Acid 1.4 mmol/L (0.7-2.1) 06/18/18 13:31 Calcium 9.2 mg/dl (8.6-10.4) 06/30/18 06:54 Phosphorus 2.5 mg/dL (2.5-4.5) 06/30/18 06:54 Magnesium 2.3 mg/dL (1.6-2.3) 06/30/18 06:54 Total Bilirubin 0.3 mg/dL (0.2-1.3) 06/30/18 06:54 AST 26 U/L (17-59) 06/30/18 06:54 ALT 36 U/L (21-72) 06/30/18 06:54 Alkaline Phosphatase 118 U/L (38-126) 06/30/18 06:54 Total Protein 6.6 g/dL (6.3-8.3) 06/30/18 06:54 Albumin 3.0 g/dL (3.5-5.0) L 06/30/18 06:54 Globulin 3.6 gm/dL (2.2-3.9) 06/30/18 06:54 Albumin/Globulin Ratio 0.9 (1.0-2.1) L 06/30/18 06:54 Procalcitonin 69.81 NG/ML (0.19-0.49) H 06/19/18 12:11 Arterial Blood Potassium 3.5 mmol/L (3.6-5.2) L 06/19/18 13:14 Venous Blood Potassium > 20.0 mmol/L (3.6-5.2) H* 06/19/18 12:11 Urine Color Wilda (YELLOW) 06/18/18 22: Urine Clarity Hazy (Clear) 06/18/18 22: Urine pH 7.0 (5.0-8.0) 06/18/18 22: Ur Specific [place] 1.023 (1.003-1.030) 06/18/18 22: Urine Protein 2+ mg/dL (NEGATIVE) H 06/18/18 22:26 Urine Glucose (UA) Normal mg/dL (Normal) 06/18/18 22: Urine Ketones Negative mg/dL (NEGATIVE) 06/18/18 22:26 Urine Blood 3+ (NEGATIVE) H 06/18/18 22:26 Urine Nitrate Negative (NEGATIVE) 06/18/18 22: Urine Bilirubin Negative (NEGATIVE) 06/18/18 22:26 Urine Urobilinogen Normal mg/dL (0.2-1.0) 06/18/18 22:26 Ur Leukocyte Esterase 3+ Claudia/uL (Negative) H 06/18/18 22:26 Urine WBC (Auto) 227 /hpf (0-5) H 06/18/18 22:26 Urine RBC (Auto) 657 /hpf (0-3) H 06/18/18 22:26 Ur Squamous Epith Cells 1 /hpf (0-5) 06/18/18 22:26 Urine Bacteria Rare (<OCC) 06/18/18 22:26 Vancomycin Trough 13.8 ug/mL (5.0-10.0) H 06/21/18 04:00 Hepatitis A IgM Ab Negative (NEGATIVE) 06/19/18 06:35 Hep Bs Antigen Negative (NEGATIVE) 06/19/18 06:35 Hep B Core IgM Ab Negative (NEGATIVE) 06/19/18 06:35 Hepatitis C Antibody Negative (NEGATIVE) 06/19/18 06:35 Attending/Attestation - Attestation I have personally seen and examined this patient.: Yes I have fully participated in the care of the patient.: Yes I have reviewed all pertinent clinical information, including history, physical exam and plan: Yes
[2018-07-01 17:06] VITALS: BP 151/76; PULSE 91; TEMP 97.4; O2SAT 98
== END 2018-07-01 17:45 | DRG 724 ==
LOC: C.ER 10:04 → C.9E 13:03 → C.3T 13:12
PROVIDERS: ADMIT Internal Medicine; ATTEND Internal Medicine
PROC: 3E0G76Z Introduction of Nutritional Substance into Upper GI, Via Natural or Artificial Opening (ICD-10-PCS; 2018-06-18)
PROC: 0D20XUZ Change Feeding Device in Upper Intestinal Tract, External Approach (ICD-10-PCS; principal; 2018-06-19)
PROC: 02HV33Z Insertion of Infusion Device into Superior Vena Cava, Percutaneous Approach (ICD-10-PCS; 2018-06-25)
DX: R78.81 Bacteremia (principal); L89.152 Pressure ulcer of sacral region, stage 2; K80.10 Calculus of gallbladder with chronic cholecystitis without obstruction; G20 Parkinson's disease; N12 Tubulo-interstitial nephritis, not specified as acute or chronic; Z43.1 Encounter for attention to gastrostomy; E86.0 Dehydration; B96.89 Other specified bacterial agents as the cause of diseases classified elsewhere; L89.153 Pressure ulcer of sacral region, stage 3; B37.49 Other urogenital candidiasis; B96.1 Klebsiella pneumoniae [K. pneumoniae] as the cause of diseases classified elsewhere; I10 Essential (primary) hypertension; E11.9 Type 2 diabetes mellitus without complications; F02.80 Dementia in other diseases classified elsewhere, unspecified severity, without behavioral disturbance, psychotic disturbance, mood disturbance, and anxiety; K52.9 Noninfective gastroenteritis and colitis, unspecified; K59.00 Constipation, unspecified; B96.5 Pseudomonas (aeruginosa) (mallei) (pseudomallei) as the cause of diseases classified elsewhere; Z74.01 Bed confinement status; Z79.899 Other long term (current) drug therapy; Z83.3 Family history of diabetes mellitus; Z87.891 Personal history of nicotine dependence; Z79.4 Long term (current) use of insulin; Z23 Encounter for immunization

== ENCOUNTER 2018-11-09 19:56 | Inpatient (IN) | payer MEDICARE, OTHER ==
[2018-11-09 19:59] VITALS: BMI 20.7
[2018-11-09] MEDS ORDERED: Vancomycin 1 gm/NS 200 ml 1 GM/200 ML BAG IVPB STA (20:36)
[2018-11-09] MEDS ORDERED: Aztreonam 2 GM in Sodium Chloride 0.9% 100 ML IVPB STA (20:36)
[2018-11-09] MEDS ORDERED: Sodium Chloride 0.9% 1,000 ML IV ONE ×3 (20:36→23:05)
--- NOTE | 2018-11-09 20:54 | C.PDOC ---
History Of Present Illness 83 year old male [facility] after his daughter noticed that he was unresponsive today. His daughter states that he was awake and speaking to her yesterday. The nurse at the jail noted that his pulse O2 saturation was in the high 80s. Time Seen by Provider: 11/09/18 20:02 Chief Complaint (Nursing): Altered Mental Status History Per: EMS, Family History/Exam Limitations: Clinical Condition Onset/Duration Of Symptoms: Hrs Onset Of Symptoms: Cannot Confirm Onset Current Symptoms Are (Timing): Still Present Usual Baseline: Alert Oriented Exacerbating Factor(s): Unknown Additional History Per: Patient, Family Past Medical History Reviewed: Historical Data, Nursing Documentation, Vital Signs Vital Signs: Last Vital Signs Temp 100.6 F H 11/09/18 20:09 Pulse 105 H 11/09/18 20:09 Resp 22 11/09/18 20:09 BP 75/36 L 11/09/18 20:09 Pulse Ox - Medical History PMH: Anemia, Dementia, HTN, Parkinson's Disease, Pneumonia Denies: Chronic Kidney Disease Surgical History: No Surg Hx - [facility] Procedures CHANGE FEEDING DEVICE IN UP INTEST TRACT, ASSISTANT ASSOCIATE FULL PROFESSOR APPROACH (06/18/18) EXTIRPATION OF MATTER FROM RECTUM, VIA OPENING (05/27/18) INSERTION OF FEEDING DEVICE INTO STOMACH, OPEN APPROACH (05/27/18) INSERTION OF INFUSION DEV INTO SUP VENA CAVA, PERC APPROACH (06/18/18) INSERTION OF INFUSION DEVICE INTO UPPER VEIN, PERC APPROACH (05/27/18) INTRODUCE OF OTH THERAP SUBST INTO RESP TRACT, VIA OPENING (10/05/18) INTRODUCTION OF NUTRITIONAL INTO PERIPH VEIN, PERC APPROACH (05/27/18) INTRODUCTION OF NUTRITIONAL INTO UP GI, VIA OPENING (06/18/18) TRANSFUSE NONAUT RED BLOOD CELLS IN PERIPH VEIN, PERC (08/28/18) ULTRASONOGRAPHY OF RIGHT UPPER EXTREMITY VEINS, GUIDANCE (05/27/18) Family History: States: Unknown Family Hx - Social History Hx Alcohol Use: No Hx Substance Use: No - Immunization History Hx Tetanus Toxoid Vaccination: No Hx Influenza Vaccination: No Hx Pneumococcal Vaccination: No Review Of Systems Review Of Systems: ROS cannot be obtained secondary to pt's inabilty to answer questions. Physical Exam - Physical Exam Appears: Other (unresponsive to pain or voice) Skin: Normal Color, Warm, Dry, No Rash Head: Atraumatic, Normacephalic Neck: Supple Chest: Symmetrical, No Deformity Cardiovascular: Rhythm Regular, No Murmur, Other (Tachycardic) Respiratory: Other (breathing on his own and protecting his own airway) Gastrointestinal/Abdominal: Soft, No Tenderness, Other (PEG tube to left upper quadrant) Extremity: No Swelling Pulses: Left Radial: Normal, Right Radial: Normal Neurological/Psych: No Response To Commands Pain Response: No Response To Pain ED Course And Treatment - Laboratory Results Result Diagrams: 11/10/18 01:31 11/10/18 01:31 Progress Note: EKG and CXR ordered for patient. Labs ordered with VBG, blood culture, and urine culture for patient. Patient given Azactam IVPB, IV fluids, and Vancomycin IVPB. Critical Care Time - Critical Care Note Total Time (in mins): 45 Documented critical care: time excludes all time spent performing seperately billable procedures. Medical Decision Making Medical Decision Making: Patient noted to be febrile, hypoxic, and tachycardic upon arrival. Unresponsive to voice or pain. Presumed sepsis. 30cc/kg NS bolus immediately initiated. BP initially in the mid 70's systolic, but improved to the high 80's with fluids. Patient placed on NRB with improvement of O2 saturation to the 90's. Labs done and reviewed. Marked leukocytosis and lactic acidosis noted. Vancomycin and aztreonam x1 dose each ordered and administered. Patient with indwelling north catheter that was not draining despite 3L IV hydration. RN removed north with immediate output of large amount of tea- colored, blood-tinged urine. Patient noted to have some distention to the lower abdomen, so CT abd/pelvis ordered. Case discussed with Dr. Powell for admission to medical service. Discussed also with Dr. Ramirez for ICU admission. Disposition - Disposition Disposition: HOSPITALIZED Disposition Time: 22:22 Condition: CRITICAL - Clinical Impression Clinical Impression: Septic shock - Scribe Statement The provider has reviewed the documentation as recorded by the Scribe (Rocío Enriquez) All medical record entries made by the Scribe were at my direction and personally dictated by me. I have reviewed the chart and agree that the record accurately reflects my personal performance of the history, physical exam, medical decision making, and the department course for this patient. I have also personally directed, reviewed, and agree with the discharge instructions and disposition.
[2018-11-09] MEDS ORDERED: Vancomycin 1 GM 1 GM/250 ML BAG IVPB ONE (21:00)
[2018-11-09 21:06] LABS: INR 1.9; PROTHROMBIN TIME 21.1 SECONDS (9.7-12.2)
[2018-11-09] MEDS ORDERED: Vancomycin 1 GM 1 GM/250 ML BAG IVPB STA (21:06)
[2018-11-09 21:13] LABS: ALB/GLOB RATIO 0.7 (1.0-2.1); ALBUMIN 2.5 g/dL (3.5-5.0); CALCIUM 7.7 mg/dl (8.6-10.4)
[2018-11-09 21:39] LABS: BASO # 0.1 K/uL (0.0-0.2); BASO % 0.2 % (0.0-2.0); HEMOGLOBIN 7.7 g/dL (12.0-18.0); LYMPH # 1.6 K/uL (1.0-4.3); LYMPH % 5.1 % (20.0-40.0); MEAN CELL VOLUME 84.9 fL (80.0-94.0); MEAN CORPUSCULAR HEMOGLOBIN 24.7 pg (27.0-31.0); MEAN CORPUSCULAR HGB CONC 29.1 g/dL (33.0-37.0); MEAN PLATELET VOLUME 7.7 fL (7.2-11.7); MONO # 1.8 K/uL (0.0-0.8); MONO % 5.7 % (0.0-10.0); NEUT # 28.6 K/uL (1.8-7.0); NRBC % 3.9 % (0.0-2.0); PLATELET COUNT 419 K/uL (130-400); RBC 3.13 Mil/uL (4.40-5.90); RED CELL DISTRIBUTION WIDTH 20.7 % (11.5-14.5); WHITE BLOOD COUNT 32.1 K/uL (4.8-10.8)
[2018-11-09 22:07] LABS: VENOUS BLOOD GAS BASE EXCESS -17.4 mmol/L (0.0-2.0); VENOUS BLOOD GAS PCO2 55 mmHg (40-60); VENOUS BLOOD GAS PO2 56 mm/Hg (30-55); VENOUS BLOOD PH 7.01 (7.32-7.43)
[2018-11-09 22:08] LABS: BANDS 25 % (0-2); LYMPHOCYTE 3 % (20-40); METAMYELOCYTE 1 % (0-0); MONOCYTE 8 % (0-10); MYELOCYTE 2 % (0-0); NEUTROPHIL 61 % (50-75); NUCLEATED RED BLOOD CELL 12 % (0-0); PLATELET ESTIMATE NORMAL (NORMAL); TOTAL CELLS COUNTED 100
[2018-11-09 22:09] LABS: ACANTHOCYTES MODERATE; SCHISTOCYTES MODERATE
[2018-11-09 22:27] LABS: URINE BACTERIA FEW (<OCC); URINE BILIRUBIN NEGATIVE (NEGATIVE); URINE BLOOD 3+ (NEGATIVE); URINE CLARITY Turbid (Clear); URINE COLOR Red (YELLOW); URINE GLUCOSE (UA) NORMAL (Normal); URINE LEUKOCYTE ESTERASE 3+ Leu/uL (Negative); URINE PROTEIN 3+ mg/dL (NEGATIVE); URINE UROBILINOGEN NORMAL mg/dL (0.2-1.0)
[2018-11-09 22:38] VITALS: O2SAT 100
[2018-11-09] MEDS ORDERED: Sodium Bicarbonate (8.4%) 50 Meq Syringe IVP ONE (23:05)
[2018-11-09] MEDS ORDERED: Lactated Ringer's 1,000 ML IV ONE (23:05)
[2018-11-09] MEDS ORDERED: Sodium Bicarbonate (8.4%) 50 Meq Syringe ONE (23:11)
[2018-11-09] MEDS ORDERED: Lactated Ringer's 1,000 ML ONE (23:12)
[2018-11-10] MEDS ORDERED: Lactated Ringer's 1,000 ML IV SCH (00:10)
[2018-11-10] MEDS ORDERED: Meropenem 1 GM in Sodium Chloride 0.9% 100 ML IVPB SCH (01:15)
[2018-11-10 01:35] LABS: BASO # 0.1 K/uL (0.0-0.2); BASO % 0.2 % (0.0-2.0); EOS # 5.5 K/uL (0.0-0.7); EOS % 17.4 % (0.0-4.0); HEMOGLOBIN 7.4 g/dL (12.0-18.0); LYMPH # 1.8 K/uL (1.0-4.3); LYMPH % 5.5 % (20.0-40.0); MEAN CELL VOLUME 87.8 fL (80.0-94.0); MEAN CORPUSCULAR HEMOGLOBIN 24.3 pg (27.0-31.0); MEAN CORPUSCULAR HGB CONC 27.7 g/dL (33.0-37.0); MEAN PLATELET VOLUME 7.9 fL (7.2-11.7); MONO # 1.1 K/uL (0.0-0.8); MONO % 3.5 % (0.0-10.0); NEUT # 23.4 K/uL (1.8-7.0); NEUT % 73.4 % (50.0-75.0); NRBC % 4.1 % (0.0-2.0); RBC 3.04 Mil/uL (4.40-5.90); RED CELL DISTRIBUTION WIDTH 20.9 % (11.5-14.5); WHITE BLOOD COUNT 31.8 K/uL (4.8-10.8)
[2018-11-10] MEDS ORDERED: metroNIDAZOLE IV 500 mg/100 ml 500 MG/100 ML BAG IVPB SCH (01:45)
[2018-11-10 01:46] LABS: ABG ALLEN TEST POS; ARTERIAL BLOOD GAS HCO3 9.3 mmol/L (21-28); ARTERIAL BLOOD GAS O2 SAT 90.3 % (95-98); ARTERIAL BLOOD GAS PCO2 56 mm/Hg (35-45); ARTERIAL BLOOD GAS PH 6.96 (7.35-7.45); ARTERIAL BLOOD GAS PO2 76 mm/Hg (80-100); ARTERIAL BLOOD GAS TCO2 14.3 mmol/L (22-28)
[2018-11-10] MEDS ORDERED: Sodium Bicarbonate (8.4%) 50 Meq Syringe IVP ONE (01:52)
[2018-11-10 01:53] VITALS: TEMP 96
[2018-11-10] MEDS ORDERED: Sodium Bicarbonate 8.4% 150 MEQ in Dextrose 5% In Water 1,000 ML IV SCH (02:00)
[2018-11-10 02:31] LABS: ALB/GLOB RATIO 0.7 (1.0-2.1); ALBUMIN 2.5 g/dL (3.5-5.0); CALCIUM 7.5 mg/dl (8.6-10.4)
[2018-11-10] MEDS ORDERED: Sodium Bicarbonate (8.4%) 50 mEq Vial ONE ×3 (02:38→02:53)
[2018-11-10] MEDS ORDERED: Dextrose 50% SYRINGE Inj (50 ml) ONE (02:39)
--- NOTE | 2018-11-10 02:39 | CP.PCM.CON ---
History of Present Illness - History of Present Illness History of Present Illness: 83 M with h/o parkinson's, mild dementia, s/p, with problems with dislodgement, urinary retention, s/p indewelling north, h/o htn, bed bound, stage 4 sacral debuti, with colonization of resistant bact, DNR/DNI. Was noticed lethargic and obtunded by the daughter who visits daily, he was noticed fine yesterday to his baseline like alert when she left. In ER he was hypoxic, acidotic, high lactic acid, hypotensive, jennifer, no urine was noticed in the north just a trial of insertion showed dark redish urine. He as received 3lit of saline still hypotensive, obtunded, not able to communicate. Daughter a the bedside confirmed he is DNR/DNI PMH: hypertension, dementia, Parkinson's disease, sacral decubitus ulcer stage IV, pneumonia, cholelithiasis, and diabetes mellitus type II PSH: G tube placed on 06/06/18 FMHx: brother had diabetes mellitus type II SHx: resides at [facility], moved from [place] Allergies: NKDA Review of Systems - Review of Systems All systems: reviewed and no additional remarkable complaints except (HPI) Past Patient History - Past Medical History & Family History Past Medical History?: Yes - Past Social History Smoking Status: Unknown If Ever Smoked Alcohol: None Home Situation {Lives}: Care Home Domestic Violence: Negative - CARDIAC Hx Hypertension: Yes - PULMONARY Hx Pneumonia: Yes - NEUROLOGICAL Hx Dementia: Yes Hx Parkinson's Disease: Yes - HEENT Hx HEENT Problems: Yes Hx Difficulty Chewing: Yes Other/Comment: Dysphagia - RENAL Hx Chronic Kidney Disease: No - ENDOCRINE/METABOLIC Hx Diabetes Mellitus Type 2: Yes - HEMATOLOGICAL/ONCOLOGICAL Hx Anemia: Yes - INTEGUMENTARY Hx Dermatological Problems: Yes Other/Comment: skin breakdown sacrum with wound vac - MUSCULOSKELETAL/RHEUMATOLOGICAL Hx Musculoskeletal Disorders: Yes Hx Falls: No Hx Unsteady Gait: Yes Other/Comment: bed bound - GASTROINTESTINAL Hx Gastrointestinal Disorders: No Other/Comment: PEG tube - GENITOURINARY/GYNECOLOGICAL Hx Genitourinary Disorders: Yes Hx Incontinence: Yes Hx Prostate Problems: Yes (BPH) Other/Comment: inguinal hernia - PSYCHIATRIC Hx Substance Use: No - SURGICAL HISTORY Hx Surgeries: No - ANESTHESIA Hx Anesthesia: Yes Hx Anesthesia Reactions: No Hx Malignant Hyperthermia: No Meds Allergies/Adverse Reactions: Allergies Allergy/AdvReac Type Severity Reaction Status Date / Time No Known Allergies Allergy Verified 11/09/18 19:58 - Medications Medications: Current Medications Lactated Ringer's (Lactated Ringer's) 1,000 mls @ 1,000 mls/hr IV .Q1H ONE Stop: 11/10/18 00:04 Last Admin: 11/09/18 23:14 Dose: 1,000 mls/hr Sodium Chloride (Sodium Chloride 0.9%) 1,000 mls @ 1,000 mls/hr IV .Q1H ONE Stop: 11/10/18 00:04 Last Admin: 11/09/18 23:14 Dose: 1,000 mls/hr Physical Exam - Additional Findings Additional findings: * HEENT SAMANHTA, slow responding pupils * Neck no jvd but ej just started to fill * CVS regular borderline tachycardia * Chest clear, shallow breaths * Abd distended, firm, tympanic, but dull in small area in suprapubic area, right inguinal hernia noticed * HORSE SHOW JUDGE lethargic, not communicating * Skin dry turgor low * Results - Vital Signs Recent Vital Signs: Last Vital Signs Temp 100.6 F H 11/09/18 20:09 Pulse 102 H 11/09/18 22:15 Resp 25 H 11/09/18 22:15 BP 74/32 L 11/09/18 22:15 Pulse Ox 100 11/09/18 22:15 - Labs Result Diagrams: 11/09/18 21:36 11/09/18 20:51 Labs: Laboratory Results - last 24 hr 11/09/18 11/09/18 11/09/18 20:48 20:51 20:51 WBC RBC Hgb Hct MCV MCH MCHC RDW Plt Count MPV Neut % (Auto) Lymph % (Auto) [place] % (Auto) Eos % (Auto) Baso % (Auto) Neut # (Auto) Lymph # (Auto) [place] # (Auto) Eos # (Auto) Baso # (Auto) Neutrophils % (Manual) Band Neutrophils % Lymphocytes % (Manual) Monocytes % (Manual) Metamyelocytes % Myelocytes % Nucleated RBC % Platelet Estimate Acanthocytes (Spur) Schistocytes PT 21.1 H INR 1.9 APTT 34 pO2 VBG pH VBG pCO2 VBG HCO3 VBG Total CO2 VBG O2 Sat (Calc) VBG Base Excess VBG Potassium Glucose Lactate FiO2 Crit Value Called To Crit Value Called By Crit Value Read Back Blood Gas Notified Time Sodium 144 Potassium 4.7 Chloride 116 H Carbon Dioxide 12 L Anion Gap 21 H BUN 49 H Creatinine 2.1 H Est GFR ( Amer) 37 Est GFR (Non-Af Amer) 30 POC Glucose (mg/dL) 145 H Random Glucose 111 H Calcium 7.7 L Phosphorus 7.7 H Magnesium 3.1 H Total Bilirubin 0.9 AST 64 H D ALT 11 L D Alkaline Phosphatase 114 Total Protein 5.9 L Albumin 2.5 L Globulin 3.4 Albumin/Globulin Ratio 0.7 L Venous Blood Potassium Urine Color Urine Clarity Urine pH Ur Specific [place] Urine Protein Urine Glucose (UA) Urine Ketones Urine Blood Urine Nitrate Urine Bilirubin Urine Urobilinogen Ur Leukocyte Esterase Urine WBC (Auto) Urine RBC (Auto) Urine Bacteria 11/09/18 11/09/18 11/09/18 21:36 21:45 22:17 WBC 32.1 H D RBC 3.13 L Hgb 7.7 L D Hct 26.5 L MCV 84.9 D MCH 24.7 L MCHC 29.1 L RDW 20.7 H Plt Count 419 H D MPV 7.7 Neut % (Auto) 89.0 H Lymph % (Auto) 5.1 L [place] % (Auto) 5.7 Eos % (Auto) 0.0 Baso % (Auto) 0.2 Neut # (Auto) 28.6 H Lymph # (Auto) 1.6 [place] # (Auto) 1.8 H Eos # (Auto) 0.0 Baso # (Auto) 0.1 Neutrophils % (Manual) 61 Band Neutrophils % 25 H* Lymphocytes % (Manual) 3 L Monocytes % (Manual) 8 Metamyelocytes % 1 H Myelocytes % 2 H Nucleated RBC % 12 H Platelet Estimate Normal Acanthocytes (Spur) Moderate Schistocytes Moderate PT INR APTT pO2 56 H VBG pH 7.01 L* VBG pCO2 55 VBG HCO3 10.6 VBG Total CO2 15.6 L VBG O2 Sat (Calc) 79.7 H VBG Base Excess -17.4 L VBG Potassium 6.0 H Glucose 91 Lactate 9.1 H* FiO2 21.0 Crit Value Called To Dr titus nash Crit Value Called By [facility] Crit Value Read Back Y Blood Gas Notified Time 2206 Sodium 144.0 Potassium Chloride 116.0 H Carbon Dioxide Anion Gap BUN Creatinine Est GFR ( Amer) Est GFR (Non-Af Amer) POC Glucose (mg/dL) Random Glucose Calcium Phosphorus Magnesium Total Bilirubin AST ALT Alkaline Phosphatase Total Protein Albumin Globulin Albumin/Globulin Ratio Venous Blood Potassium 6.0 H Urine Color Red Urine Clarity Turbid Urine pH 8.0 Ur Specific [place] 1.012 Urine Protein 3+ H Urine Glucose (UA) Normal Urine Ketones Negative Urine Blood 3+ H Urine Nitrate Negative Urine Bilirubin Negative Urine Urobilinogen Normal Ur Leukocyte Esterase 3+ H Urine WBC (Auto) 195 H Urine RBC (Auto) 3288 H Urine Bacteria Few H Assessment & Plan - Assessment and Plan (Free Text) Assessment: * Sepsis urinary, or gi source with distended abd PEG leak, intestinal ischemia * Anemia without apparent blood loss, actual hemoglobin still worse as hemoconcentration noticed * Dehydration * Bedbound * Sacra stage 4 appears having granulation, no surrounding edema * Parkinsons * s/p peg with dislodgement recently * H/o urinary retention * H/o DM * Cachexia * DNR/DNI confirmed with daughter Plan: * IV hydration * Broad spectrum abx, may need pressor, prbc * Explained poor prognosis with extent of the clinical picture may not make it with full measures, * Pending [facility] CT * Accepted to ICU
[2018-11-10] MEDS ORDERED: Dextrose 50% SYRINGE Inj (50 ml) IV STA (02:41)
--- NOTE | 2018-11-10 03:44 | PCM.PROC ---
Procedures Attestation:: I certify that I have explained the specified Operation(s) or Procedure(s), risks, benefits and reasonable alternatives to the Patient and/or other person responsible. The opportunity was given to ask questions and all questions answered - Central Line Placement Left Internal Jugular Triple Lumen Catheter Aseptic technique was employed throughout the procedure: Full sterile barriers (mask, hair cover, sterile gown, sterile gloves), Full body sterile drape, Chlor aprep Antiseptic: 30 second prep for IJ or SC sites CVP Time Out Performed: Yes Pt. Placed on Pulse Ox Monitor: Yes Central Line Prep: Chlorhexidine-Alcohol Combination Local Anesthesia Used: Lidocaine 1% Amount of Anesthesia Used (mls): 2 Ultrasound Used for Placement: Yes Central Line Lumen Inserted: triple Central Line Length: 16 cm Post Procedure: Sutured in Place, Good Blood Return, All Ports Aspirated, Flushed, Capped, Sterile Dressing Applied Secured by: Suture Post procedure dressing: Chlorhexidine disc (Biopatch) Post Procedure X-Ray: Yes Patient Tolerated Procedure: Well Immediate Complications: None Additional Comments: Central line done as patient was in septic shock in need of vasopressors.
--- NOTE | 2018-11-10 07:13 | CP.CCUPN ---
CCU Objective - Vital Signs / Intake & Output Vital Signs (Last 4 hours): Vital Signs Pulse Resp BP Pulse Ox 11/10/18 07:02 111 H 27 H 64/34 L 100 11/10/18 07:00 111 H 28 H 100 11/10/18 06:57 112 H 29 H 62/34 L 100 11/10/18 06:50 113 H 31 H 100 11/10/18 06:47 112 H 28 H 62/35 L 100 11/10/18 06:40 112 H 29 H 100 11/10/18 06:32 112 H 29 H 62/35 L 100 11/10/18 06:30 112 H 28 H 100 11/10/18 06:20 114 H 30 H 100 11/10/18 06:17 115 H 32 H 67/40 L 100 11/10/18 06:10 120 H 33 H 100 11/10/18 06:02 120 H 34 H 81/44 L 100 11/10/18 06:00 120 H 34 H 100 11/10/18 05:51 121 H 33 H 86/47 L 100 11/10/18 05:50 122 H 36 H 100 11/10/18 05:40 123 H 32 H 100 11/10/18 05:32 121 H 31 H 81/54 L 11/10/18 05:30 122 H 29 H 11/10/18 05:20 122 H 36 H 11/10/18 05:17 121 H 36 H 88/52 L 100 11/10/18 05:10 122 H 36 H 100 11/10/18 05:02 121 H 34 H 90/51 L 100 11/10/18 05:00 121 H 34 H 100 11/10/18 04:50 122 H 33 H 100 11/10/18 04:47 122 H 34 H 91/53 L 100 11/10/18 04:40 121 H 32 H 100 11/10/18 04:32 121 H 34 H 98/53 L 100 11/10/18 04:30 121 H 32 H 100 11/10/18 04:20 121 H 33 H 100 11/10/18 04:17 121 H 34 H 99/56 L 100 11/10/18 04:10 121 H 32 H 100 11/10/18 04:02 120 H 32 H 104/54 L 100 11/10/18 04:00 119 H 32 H 100 11/10/18 03:50 120 H 31 H 100 11/10/18 03:47 120 H 31 H 108/53 L 100 11/10/18 03:40 120 H 31 H 100 11/10/18 03:32 120 H 32 H 111/56 L 100 11/10/18 03:30 119 H 30 H 100 11/10/18 03:20 118 H 30 H 100 11/10/18 03:17 118 H 30 H 109/56 L 100 Intake and Output (Last 8hrs): Intake & Output 11/09/18 11/10/18 11/10/18 22:59 06:59 14:59 Intake Total 5878.1 165 Output Total 250 50 Balance 5628.1 115 Weight 145 lb 131 lb Intake: IV 23.1 Intake, IV Amount 5855 165 Left Antecubital 4000 Left Distal Port Internal 105 15 Jugular Left Medial Port Internal 450 150 Jugular Right Antecubital 1300 Output: Gastric Amount 100 Stomach 100 Urine 150 50 Urethral ([place]) 150 50 Urine/Stool Mix 0 Other: Voiding Method Diaper - Medications Active Medications: Active Medications Generic Name Dose Route Start Last Admin Trade Name Freq PRN Reason Stop Dose Admin Norepinephrine Bitartrate 4 mg 254 mls @ 15.24 mls/hr 11/10/18 00:12 11/10/18 02:00 / Sodium Chloride IV 12 mcg/min .[id number] PRN 45.72 mls/hr TITRATE PER MD ORDER Titration Protocol 4 MCG/MIN Meropenem 1 gm/ Sodium 100 mls @ 100 mls/hr 11/10/18 01:15 11/10/18 03:40 Chloride IVPB Not Given Q12H KATERINA Protocol Vancomycin HCl 1 gm/ Sodium 250 mls @ 166.7 mls/hr 11/10/18 21:00 Chloride IVPB Q24H KATERINA Protocol Metronidazole 500 mg in 100 mls @ 100 mls/hr 11/10/18 01:45 11/10/18 03:39 Flagyl IVPB Not Given Q8H KATERINA Protocol Sodium Bicarbonate 150 meq/ 1,150 mls @ 150 mls/hr 11/10/18 02:00 11/10/18 03:00 Dextrose IV 150 mls/hr .[id number] KATERINA Administration Morphine Sulfate 250 mg/ 250 mls @ 2 mls/hr 11/10/18 03:30 02/18/19 04:14 Sodium Chloride IV 2 mg/hr .Q24H PRN 2 mls/hr Pain, moderate (4-7) Administration Protocol Pantoprazole Sodium 40 mg 11/10/18 10:00 Protonix Inj IVP DAILY KATERINA - Patient Studies Lab Studies: Lab Studies 11/10/18 11/10/18 11/10/18 Range/Units 03:19 01:43 01:31 WBC 31.8 H (4.8-10.8) K/uL RBC 3.04 L (4.40-5.90) Mil/uL Hgb 7.4 L (12.0-18.0) g/dL Hct 26.7 L (35.0-51.0) % MCV 87.8 D (80.0-94.0) fL MCH 24.3 L (27.0-31.0) pg MCHC 27.7 L (33.0-37.0) g/dL RDW 20.9 H (11.5-14.5) % Plt Count 366 (130-400) K/uL MPV 7.9 (7.2-11.7) fL Neut % (Auto) 73.4 (50.0-75.0) % Lymph % (Auto) 5.5 L (20.0-40.0) % [place] % (Auto) 3.5 (0.0-10.0) % Eos % (Auto) 17.4 H (0.0-4.0) % Baso % (Auto) 0.2 (0.0-2.0) % Neut # (Auto) 23.4 H (1.8-7.0) K/uL Lymph # (Auto) 1.8 (1.0-4.3) K/uL [place] # (Auto) 1.1 H (0.0-0.8) K/uL Eos # (Auto) 5.5 H (0.0-0.7) K/uL Baso # (Auto) 0.1 (0.0-0.2) K/uL Neutrophils % (Manual) (50-75) % Band Neutrophils % (0-2) % Lymphocytes % (Manual) (20-40) % Monocytes % (Manual) (0-10) % Metamyelocytes % (0-0) % Myelocytes % (0-0) % Nucleated RBC % (0-0) % Platelet Estimate (NORMAL) Acanthocytes (Spur) Schistocytes PT (9.7-12.2) SECONDS INR APTT (21-34) SECONDS Puncture Site Rr pCO2 56 H (35-45) mm/Hg pO2 76 L (30-55) mm/Hg HCO3 9.3 L* (21-28) mmol/L ABG pH 6.96 L* (7.35-7.45) ABG Total CO2 14.3 L (22-28) mmol/L ABG O2 Saturation 90.3 L (95-98) % ABG Base Excess -19.5 L (-2.0-3.0) mmol/L Nader Test Pos ABG Potassium 6.9 H* (3.6-5.2) mmol/L VBG pH (7.32-7.43) VBG pCO2 (40-60) mmHg VBG HCO3 mmol/L VBG Total CO2 (22-28) mmol/L VBG O2 Sat (Calc) (40-65) % VBG Base Excess (0.0-2.0) mmol/L VBG Potassium (3.6-5.2) mmol/L A-a O2 Difference 567.0 mm/Hg Respiratory Index 7.5 Glucose 54 L (75-110) mg/dl Lactate 9.2 H* (0.7-2.1) mmol/L FiO2 100.0 % Crit Value Called To Maurilio hooks rn Crit Value Called By Lewis centrifugal supervisor Crit Value Read Back Y Blood Gas Notified Time 145 Sodium 143.0 (132-148) mmol/L Potassium (3.6-5.2) mmol/L Chloride 117.0 H (98-107) mmol/L Carbon Dioxide (22-30) mmol/L Anion Gap (10-20) BUN (9-20) mg/dL Creatinine (0.8-1.5) mg/dL Est GFR ( Amer) Est GFR (Non-Af Amer) POC Glucose (mg/dL) 160 H (65-110) mg/dL Random Glucose (75-110) mg/dL Lactic Acid (0.7-2.1) mmol/L Calcium (8.6-10.4) mg/dl Phosphorus (2.5-4.5) mg/dL Magnesium (1.6-2.3) mg/dL Total Bilirubin (0.2-1.3) mg/dL AST (17-59) U/L ALT (21-72) U/L Alkaline Phosphatase (38-126) U/L Total Protein (6.3-8.3) g/dL Albumin (3.5-5.0) g/dL Globulin (2.2-3.9) gm/dL Albumin/Globulin Ratio (1.0-2.1) Arterial Blood Potassium 6.9 H* (3.6-5.2) mmol/L Venous Blood Potassium (3.6-5.2) mmol/L Urine Color (YELLOW) Urine Clarity (Clear) Urine pH (5.0-8.0) Ur Specific [place] (1.003-1.030) Urine Protein (NEGATIVE) mg/dL Urine Glucose (UA) (Normal) mg/dL Urine Ketones (NEGATIVE) mg/dL Urine Blood (NEGATIVE) Urine Nitrate (NEGATIVE) Urine Bilirubin (NEGATIVE) Urine Urobilinogen (0.2-1.0) mg/dL Ur Leukocyte Esterase (Negative) Claudia/uL Urine WBC (Auto) (0-5) /hpf Urine RBC (Auto) (0-3) /hpf Urine Bacteria (<OCC) Blood Type Antibody Screen 11/10/18 11/10/18 11/10/18 Range/Units 01:31 01:31 01:31 WBC (4.8-10.8) K/uL RBC (4.40-5.90) Mil/uL Hgb (12.0-18.0) g/dL Hct (35.0-51.0) % MCV (80.0-94.0) fL MCH (27.0-31.0) pg MCHC (33.0-37.0) g/dL RDW (11.5-14.5) % Plt Count (130-400) K/uL MPV (7.2-11.7) fL Neut % (Auto) (50.0-75.0) % Lymph % (Auto) (20.0-40.0) % [place] % (Auto) (0.0-10.0) % Eos % (Auto) (0.0-4.0) % Baso % (Auto) (0.0-2.0) % Neut # (Auto) (1.8-7.0) K/uL Lymph # (Auto) (1.0-4.3) K/uL [place] # (Auto) (0.0-0.8) K/uL Eos # (Auto) (0.0-0.7) K/uL Baso # (Auto) (0.0-0.2) K/uL Neutrophils % (Manual) (50-75) % Band Neutrophils % (0-2) % Lymphocytes % (Manual) (20-40) % Monocytes % (Manual) (0-10) % Metamyelocytes % (0-0) % Myelocytes % (0-0) % Nucleated RBC % (0-0) % Platelet Estimate (NORMAL) Acanthocytes (Spur) Schistocytes PT (9.7-12.2) SECONDS INR APTT (21-34) SECONDS Puncture Site pCO2 (35-45) mm/Hg pO2 (30-55) mm/Hg HCO3 (21-28) mmol/L ABG pH (7.35-7.45) ABG Total CO2 (22-28) mmol/L ABG O2 Saturation (95-98) % ABG Base Excess (-2.0-3.0) mmol/L Nader Test ABG Potassium (3.6-5.2) mmol/L VBG pH (7.32-7.43) VBG pCO2 (40-60) mmHg VBG HCO3 mmol/L VBG Total CO2 (22-28) mmol/L VBG O2 Sat (Calc) (40-65) % VBG Base Excess (0.0-2.0) mmol/L VBG Potassium (3.6-5.2) mmol/L A-a O2 Difference mm/Hg Respiratory Index Glucose (75-110) mg/dl Lactate (0.7-2.1) mmol/L FiO2 % Crit Value Called To Crit Value Called By Crit Value Read Back Blood Gas Notified Time Sodium 144 (132-148) mmol/L Potassium 6.8 H* D (3.6-5.2) mmol/L Chloride 115 H (98-107) mmol/L Carbon Dioxide 12 L (22-30) mmol/L Anion Gap 23 H (10-20) BUN 53 H (9-20) mg/dL Creatinine 2.2 H (0.8-1.5) mg/dL Est GFR ( Amer) 35 Est GFR (Non-Af Amer) 29 POC Glucose (mg/dL) (65-110) mg/dL Random Glucose 55 L D (75-110) mg/dL Lactic Acid 9.5 H* (0.7-2.1) mmol/L Calcium 7.5 L (8.6-10.4) mg/dl Phosphorus 10.3 H (2.5-4.5) mg/dL Magnesium 3.9 H (1.6-2.3) mg/dL Total Bilirubin 1.2 (0.2-1.3) mg/dL AST 132 H D (17-59) U/L ALT 26 (21-72) U/L Alkaline Phosphatase 104 (38-126) U/L Total Protein 5.9 L (6.3-8.3) g/dL Albumin 2.5 L (3.5-5.0) g/dL Globulin 3.4 (2.2-3.9) gm/dL Albumin/Globulin Ratio 0.7 L (1.0-2.1) Arterial Blood Potassium (3.6-5.2) mmol/L Venous Blood Potassium (3.6-5.2) mmol/L Urine Color (YELLOW) Urine Clarity (Clear) Urine pH (5.0-8.0) Ur Specific [place] (1.003-1.030) Urine Protein (NEGATIVE) mg/dL Urine Glucose (UA) (Normal) mg/dL Urine Ketones (NEGATIVE) mg/dL Urine Blood (NEGATIVE) Urine Nitrate (NEGATIVE) Urine Bilirubin (NEGATIVE) Urine Urobilinogen (0.2-1.0) mg/dL Ur Leukocyte Esterase (Negative) Claudia/uL Urine WBC (Auto) (0-5) /hpf Urine RBC (Auto) (0-3) /hpf Urine Bacteria (<OCC) Blood Type A POSITIVE Antibody Screen Negative 11/09/18 11/09/18 11/09/18 Range/Units 22:17 21:45 21:36 WBC 32.1 H D (4.8-10.8) K/uL RBC 3.13 L (4.40-5.90) Mil/uL Hgb 7.7 L D (12.0-18.0) g/dL Hct 26.5 L (35.0-51.0) % MCV 84.9 D (80.0-94.0) fL MCH 24.7 L (27.0-31.0) pg MCHC 29.1 L (33.0-37.0) g/dL RDW 20.7 H (11.5-14.5) % Plt Count 419 H D (130-400) K/uL MPV 7.7 (7.2-11.7) fL Neut % (Auto) 89.0 H (50.0-75.0) % Lymph % (Auto) 5.1 L (20.0-40.0) % [place] % (Auto) 5.7 (0.0-10.0) % Eos % (Auto) 0.0 (0.0-4.0) % Baso % (Auto) 0.2 (0.0-2.0) % Neut # (Auto) 28.6 H (1.8-7.0) K/uL Lymph # (Auto) 1.6 (1.0-4.3) K/uL [place] # (Auto) 1.8 H (0.0-0.8) K/uL Eos # (Auto) 0.0 (0.0-0.7) K/uL Baso # (Auto) 0.1 (0.0-0.2) K/uL Neutrophils % (Manual) 61 (50-75) % Band Neutrophils % 25 H* (0-2) % Lymphocytes % (Manual) 3 L (20-40) % Monocytes % (Manual) 8 (0-10) % Metamyelocytes % 1 H (0-0) % Myelocytes % 2 H (0-0) % Nucleated RBC % 12 H (0-0) % Platelet Estimate Normal (NORMAL) Acanthocytes (Spur) Moderate Schistocytes Moderate PT (9.7-12.2) SECONDS INR APTT (21-34) SECONDS Puncture Site pCO2 (35-45) mm/Hg pO2 56 H (30-55) mm/Hg HCO3 (21-28) mmol/L ABG pH (7.35-7.45) ABG Total CO2 (22-28) mmol/L ABG O2 Saturation (95-98) % ABG Base Excess (-2.0-3.0) mmol/L Nader Test ABG Potassium (3.6-5.2) mmol/L VBG pH 7.01 L* (7.32-7.43) VBG pCO2 55 (40-60) mmHg VBG HCO3 10.6 mmol/L VBG Total CO2 15.6 L (22-28) mmol/L VBG O2 Sat (Calc) 79.7 H (40-65) % VBG Base Excess -17.4 L (0.0-2.0) mmol/L VBG Potassium 6.0 H (3.6-5.2) mmol/L A-a O2 Difference mm/Hg Respiratory Index Glucose 91 (75-110) mg/dl Lactate 9.1 H* (0.7-2.1) mmol/L FiO2 21.0 % Crit Value Called To Dr qureshi s Crit Value Called By [facility] Crit Value Read Back Y Blood Gas Notified Time 2206 Sodium 144.0 (132-148) mmol/L Potassium (3.6-5.2) mmol/L Chloride 116.0 H (98-107) mmol/L Carbon Dioxide (22-30) mmol/L Anion Gap (10-20) BUN (9-20) mg/dL Creatinine (0.8-1.5) mg/dL Est GFR ( Amer) Est GFR (Non-Af Amer) POC Glucose (mg/dL) (65-110) mg/dL Random Glucose (75-110) mg/dL Lactic Acid (0.7-2.1) mmol/L Calcium (8.6-10.4) mg/dl Phosphorus (2.5-4.5) mg/dL Magnesium (1.6-2.3) mg/dL Total Bilirubin (0.2-1.3) mg/dL AST (17-59) U/L ALT (21-72) U/L Alkaline Phosphatase (38-126) U/L Total Protein (6.3-8.3) g/dL Albumin (3.5-5.0) g/dL Globulin (2.2-3.9) gm/dL Albumin/Globulin Ratio (1.0-2.1) Arterial Blood Potassium (3.6-5.2) mmol/L Venous Blood Potassium 6.0 H (3.6-5.2) mmol/L Urine Color Red (YELLOW) Urine Clarity Turbid (Clear) Urine pH 8.0 (5.0-8.0) Ur Specific [place] 1.012 (1.003-1.030) Urine Protein 3+ H (NEGATIVE) mg/dL Urine Glucose (UA) Normal (Normal) mg/dL Urine Ketones Negative (NEGATIVE) mg/dL Urine Blood 3+ H (NEGATIVE) Urine Nitrate Negative (NEGATIVE) Urine Bilirubin Negative (NEGATIVE) Urine Urobilinogen Normal (0.2-1.0) mg/dL Ur Leukocyte Esterase 3+ H (Negative) Claudia/uL Urine WBC (Auto) 195 H (0-5) /hpf Urine RBC (Auto) 3288 H (0-3) /hpf Urine Bacteria Few H (<OCC) Blood Type Antibody Screen 11/09/18 11/09/18 11/09/18 Range/Units 20:51 20:51 20:48 WBC (4.8-10.8) K/uL RBC (4.40-5.90) Mil/uL Hgb (12.0-18.0) g/dL Hct (35.0-51.0) % MCV (80.0-94.0) fL MCH (27.0-31.0) pg MCHC (33.0-37.0) g/dL RDW (11.5-14.5) % Plt Count (130-400) K/uL MPV (7.2-11.7) fL Neut % (Auto) (50.0-75.0) % Lymph % (Auto) (20.0-40.0) % [place] % (Auto) (0.0-10.0) % Eos % (Auto) (0.0-4.0) % Baso % (Auto) (0.0-2.0) % Neut # (Auto) (1.8-7.0) K/uL Lymph # (Auto) (1.0-4.3) K/uL [place] # (Auto) (0.0-0.8) K/uL Eos # (Auto) (0.0-0.7) K/uL Baso # (Auto) (0.0-0.2) K/uL Neutrophils % (Manual) (50-75) % Band Neutrophils % (0-2) % Lymphocytes % (Manual) (20-40) % Monocytes % (Manual) (0-10) % Metamyelocytes % (0-0) % Myelocytes % (0-0) % Nucleated RBC % (0-0) % Platelet Estimate (NORMAL) Acanthocytes (Spur) Schistocytes PT 21.1 H (9.7-12.2) SECONDS INR 1.9 APTT 34 (21-34) SECONDS Puncture Site pCO2 (35-45) mm/Hg pO2 (30-55) mm/Hg HCO3 (21-28) mmol/L ABG pH (7.35-7.45) ABG Total CO2 (22-28) mmol/L ABG O2 Saturation (95-98) % ABG Base Excess (-2.0-3.0) mmol/L Nader Test ABG Potassium (3.6-5.2) mmol/L VBG pH (7.32-7.43) VBG pCO2 (40-60) mmHg VBG HCO3 mmol/L VBG Total CO2 (22-28) mmol/L VBG O2 Sat (Calc) (40-65) % VBG Base Excess (0.0-2.0) mmol/L VBG Potassium (3.6-5.2) mmol/L A-a O2 Difference mm/Hg Respiratory Index Glucose (75-110) mg/dl Lactate (0.7-2.1) mmol/L FiO2 % Crit Value Called To Crit Value Called By Crit Value Read Back Blood Gas Notified Time Sodium 144 (132-148) mmol/L Potassium 4.7 (3.6-5.2) mmol/L Chloride 116 H (98-107) mmol/L Carbon Dioxide 12 L (22-30) mmol/L Anion Gap 21 H (10-20) BUN 49 H (9-20) mg/dL Creatinine 2.1 H (0.8-1.5) mg/dL Est GFR ( Amer) 37 Est GFR (Non-Af Amer) 30 POC Glucose (mg/dL) 145 H (65-110) mg/dL Random Glucose 111 H (75-110) mg/dL Lactic Acid (0.7-2.1) mmol/L Calcium 7.7 L (8.6-10.4) mg/dl Phosphorus 7.7 H (2.5-4.5) mg/dL Magnesium 3.1 H (1.6-2.3) mg/dL Total Bilirubin 0.9 (0.2-1.3) mg/dL AST 64 H D (17-59) U/L ALT 11 L D (21-72) U/L Alkaline Phosphatase 114 (38-126) U/L Total Protein 5.9 L (6.3-8.3) g/dL Albumin 2.5 L (3.5-5.0) g/dL Globulin 3.4 (2.2-3.9) gm/dL Albumin/Globulin Ratio 0.7 L (1.0-2.1) Arterial Blood Potassium (3.6-5.2) mmol/L Venous Blood Potassium (3.6-5.2) mmol/L Urine Color (YELLOW) Urine Clarity (Clear) Urine pH (5.0-8.0) Ur Specific [place] (1.003-1.030) Urine Protein (NEGATIVE) mg/dL Urine Glucose (UA) (Normal) mg/dL Urine Ketones (NEGATIVE) mg/dL Urine Blood (NEGATIVE) Urine Nitrate (NEGATIVE) Urine Bilirubin (NEGATIVE) Urine Urobilinogen (0.2-1.0) mg/dL Ur Leukocyte Esterase (Negative) Claudia/uL Urine WBC (Auto) (0-5) /hpf Urine RBC (Auto) (0-3) /hpf Urine Bacteria (<OCC) Blood Type Antibody Screen Laboratory Results - last 24 hr 11/09/18 11/09/18 11/09/18 20:48 20:51 20:51 WBC RBC Hgb Hct MCV MCH MCHC RDW Plt Count MPV Neut % (Auto) Lymph % (Auto) [place] % (Auto) Eos % (Auto) Baso % (Auto) Neut # (Auto) Lymph # (Auto) [place] # (Auto) Eos # (Auto) Baso # (Auto) Neutrophils % (Manual) Band Neutrophils % Lymphocytes % (Manual) Monocytes % (Manual) Metamyelocytes % Myelocytes % Nucleated RBC % Platelet Estimate Acanthocytes (Spur) Schistocytes PT 21.1 H INR 1.9 APTT 34 Puncture Site pCO2 pO2 HCO3 ABG pH ABG Total CO2 ABG O2 Saturation ABG Base Excess Nader Test ABG Potassium VBG pH VBG pCO2 VBG HCO3 VBG Total CO2 VBG O2 Sat (Calc) VBG Base Excess VBG Potassium A-a O2 Difference Respiratory Index Glucose Lactate FiO2 Crit Value Called To Crit Value Called By Crit Value Read Back Blood Gas Notified Time Sodium 144 Potassium 4.7 Chloride 116 H Carbon Dioxide 12 L Anion Gap 21 H BUN 49 H Creatinine 2.1 H Est GFR ( Amer) 37 Est GFR (Non-Af Amer) 30 POC Glucose (mg/dL) 145 H Random Glucose 111 H Lactic Acid Calcium 7.7 L Phosphorus 7.7 H Magnesium 3.1 H Total Bilirubin 0.9 AST 64 H D ALT 11 L D Alkaline Phosphatase 114 Total Protein 5.9 L Albumin 2.5 L Globulin 3.4 Albumin/Globulin Ratio 0.7 L Arterial Blood Potassium Venous Blood Potassium Urine Color Urine Clarity Urine pH Ur Specific [place] Urine Protein Urine Glucose (UA) Urine Ketones Urine Blood Urine Nitrate Urine Bilirubin Urine Urobilinogen Ur Leukocyte Esterase Urine WBC (Auto) Urine RBC (Auto) Urine Bacteria Blood Type Antibody Screen 11/09/18 11/09/18 11/09/18 21:36 21:45 22:17 WBC 32.1 H D RBC 3.13 L Hgb 7.7 L D Hct 26.5 L MCV 84.9 D MCH 24.7 L MCHC 29.1 L RDW 20.7 H Plt Count 419 H D MPV 7.7 Neut % (Auto) 89.0 H Lymph % (Auto) 5.1 L [place] % (Auto) 5.7 Eos % (Auto) 0.0 Baso % (Auto) 0.2 Neut # (Auto) 28.6 H Lymph # (Auto) 1.6 [place] # (Auto) 1.8 H Eos # (Auto) 0.0 Baso # (Auto) 0.1 Neutrophils % (Manual) 61 Band Neutrophils % 25 H* Lymphocytes % (Manual) 3 L Monocytes % (Manual) 8 Metamyelocytes % 1 H Myelocytes % 2 H Nucleated RBC % 12 H Platelet Estimate Normal Acanthocytes (Spur) Moderate Schistocytes Moderate PT INR APTT Puncture Site pCO2 pO2 56 H HCO3 ABG pH ABG Total CO2 ABG O2 Saturation ABG Base Excess Nader Test ABG Potassium VBG pH 7.01 L* VBG pCO2 55 VBG HCO3 10.6 VBG Total CO2 15.6 L VBG O2 Sat (Calc) 79.7 H VBG Base Excess -17.4 L VBG Potassium 6.0 H A-a O2 Difference Respiratory Index Glucose 91 Lactate 9.1 H* FiO2 21.0 Crit Value Called To Dr titus nash Crit Value Called By [facility] Crit Value Read Back Y Blood Gas Notified Time 2206 Sodium 144.0 Potassium Chloride 116.0 H Carbon Dioxide Anion Gap BUN Creatinine Est GFR ( Amer) Est GFR (Non-Af Amer) POC Glucose (mg/dL) Random Glucose Lactic Acid Calcium Phosphorus Magnesium Total Bilirubin AST ALT Alkaline Phosphatase Total Protein Albumin Globulin Albumin/Globulin Ratio Arterial Blood Potassium Venous Blood Potassium 6.0 H Urine Color Red Urine Clarity Turbid Urine pH 8.0 Ur Specific [place] 1.012 Urine Protein 3+ H Urine Glucose (UA) Normal Urine Ketones Negative Urine Blood 3+ H Urine Nitrate Negative Urine Bilirubin Negative Urine Urobilinogen Normal Ur Leukocyte Esterase 3+ H Urine WBC (Auto) 195 H Urine RBC (Auto) 3288 H Urine Bacteria Few H Blood Type Antibody Screen 11/10/18 11/10/18 11/10/18 01:31 01:31 01:31 WBC RBC Hgb Hct MCV MCH MCHC RDW Plt Count MPV Neut % (Auto) Lymph % (Auto) [place] % (Auto) Eos % (Auto) Baso % (Auto) Neut # (Auto) Lymph # (Auto) [place] # (Auto) Eos # (Auto) Baso # (Auto) Neutrophils % (Manual) Band Neutrophils % Lymphocytes % (Manual) Monocytes % (Manual) Metamyelocytes % Myelocytes % Nucleated RBC % Platelet Estimate Acanthocytes (Spur) Schistocytes PT INR APTT Puncture Site pCO2 pO2 HCO3 ABG pH ABG Total CO2 ABG O2 Saturation ABG Base Excess Nader Test ABG Potassium VBG pH VBG pCO2 VBG HCO3 VBG Total CO2 VBG O2 Sat (Calc) VBG Base Excess VBG Potassium A-a O2 Difference Respiratory Index Glucose Lactate FiO2 Crit Value Called To Crit Value Called By Crit Value Read Back Blood Gas Notified Time Sodium 144 Potassium 6.8 H* D Chloride 115 H Carbon Dioxide 12 L Anion Gap 23 H BUN 53 H Creatinine 2.2 H Est GFR ( Amer) 35 Est GFR (Non-Af Amer) 29 POC Glucose (mg/dL) Random Glucose 55 L D Lactic Acid 9.5 H* Calcium 7.5 L Phosphorus 10.3 H Magnesium 3.9 H Total Bilirubin 1.2 AST 132 H D ALT 26 Alkaline Phosphatase 104 Total Protein 5.9 L Albumin 2.5 L Globulin 3.4 Albumin/Globulin Ratio 0.7 L Arterial Blood Potassium Venous Blood Potassium Urine Color Urine Clarity Urine pH Ur Specific [place] Urine Protein Urine Glucose (UA) Urine Ketones Urine Blood Urine Nitrate Urine Bilirubin Urine Urobilinogen Ur Leukocyte Esterase Urine WBC (Auto) Urine RBC (Auto) Urine Bacteria Blood Type A POSITIVE Antibody Screen Negative 11/10/18 11/10/18 11/10/18 01:31 01:43 03:19 WBC 31.8 H RBC 3.04 L Hgb 7.4 L Hct 26.7 L MCV 87.8 D MCH 24.3 L MCHC 27.7 L RDW 20.9 H Plt Count 366 MPV 7.9 Neut % (Auto) 73.4 Lymph % (Auto) 5.5 L [place] % (Auto) 3.5 Eos % (Auto) 17.4 H Baso % (Auto) 0.2 Neut # (Auto) 23.4 H Lymph # (Auto) 1.8 [place] # (Auto) 1.1 H Eos # (Auto) 5.5 H Baso # (Auto) 0.1 Neutrophils % (Manual) Band Neutrophils % Lymphocytes % (Manual) Monocytes % (Manual) Metamyelocytes % Myelocytes % Nucleated RBC % Platelet Estimate Acanthocytes (Spur) Schistocytes PT INR APTT Puncture Site Rr pCO2 56 H pO2 76 L HCO3 9.3 L* ABG pH 6.96 L* ABG Total CO2 14.3 L ABG O2 Saturation 90.3 L ABG Base Excess -19.5 L Nader Test Pos ABG Potassium 6.9 H* VBG pH VBG pCO2 VBG HCO3 VBG Total CO2 VBG O2 Sat (Calc) VBG Base Excess VBG Potassium A-a O2 Difference 567.0 Respiratory Index 7.5 Glucose 54 L Lactate 9.2 H* FiO2 100.0 Crit Value Called To Maurilio hooks rn Crit Value Called By Lewis centrifugal supervisor Crit Value Read Back Y Blood Gas Notified Time 145 Sodium 143.0 Potassium Chloride 117.0 H Carbon Dioxide Anion Gap BUN Creatinine Est GFR ( Amer) Est GFR (Non-Af Amer) POC Glucose (mg/dL) 160 H Random Glucose Lactic Acid Calcium Phosphorus Magnesium Total Bilirubin AST ALT Alkaline Phosphatase Total Protein Albumin Globulin Albumin/Globulin Ratio Arterial Blood Potassium 6.9 H* Venous Blood Potassium Urine Color Urine Clarity Urine pH Ur Specific [place] Urine Protein Urine Glucose (UA) Urine Ketones Urine Blood Urine Nitrate Urine Bilirubin Urine Urobilinogen Ur Leukocyte Esterase Urine WBC (Auto) Urine RBC (Auto) Urine Bacteria Blood Type Antibody Screen EKG/Cardiology Studies: Cardiology / EKG Studies 11/09/18 20:37 ELECTROCARDIOGRAM Stat Comment: Mode Of Transportation: Reason For Exam: Sepsis Patient Fingerstick Blood Sugar Results: 145
--- NOTE | 2018-11-10 08:48 | CT ---
Date of service: 11/09/2018 PROCEDURE: CT HEAD WITHOUT CONTRAST. HISTORY: sepsis, altered mental status COMPARISON: None available. TECHNIQUE: Axial computed tomography images were obtained through the head/brain without intravenous contrast. Radiation dose: Total exam DLP = 1059.42 mGy-cm. This CT exam was performed using one or more of the following dose reduction techniques: Automated exposure control, adjustment of the mA and/or kV according to patient size, and/or use of iterative reconstruction technique. FINDINGS: HEMORRHAGE: No intracranial hemorrhage. BRAIN: No mass effect or edema. Diffuse generalized parenchymal atrophy. Scattered focal lucencies in the subcortical and periventricular white matter suggestive for chronic microvascular ischemic change. Confluent low attenuation within the right caudate head measuring 9 millimeters suggestive for a prominent lacunar infarct. VENTRICLES: Unremarkable. No hydrocephalus. CALVARIUM: Unremarkable. PARANASAL SINUSES: Air-fluid levels sphenoid sinus. MASTOID AIR CELLS: Unremarkable as visualized. No inflammatory changes. OTHER FINDINGS: Limited study given suboptimal patient positioning and technique. IMPRESSION: Diffuse generalized parenchymal atrophy. Chronic microvascular ischemic change. Prominent lacunar infarct at the level of the right caudate head. Sinus mucosal disease. If symptoms persists, consider correlation MRI. A preliminary report was generated at 12:04 a.m. on 11/10/[address] Tank Diaz from [facility].
[2018-11-10 09:26] VITALS: BP 54/30; PULSE 103; RESP 21
--- NOTE | 2018-11-10 10:41 | CP.PCM.PRO ---
Pronouncement of Note - Clinical Findings Physical Exam: No Response Verbal/Painful Stimuli, Absent Peripheral Puls es{Carotid & Femoral}, Absent Heart & Breath Sounds, No Pupillary Light Reflex, No Corneal Reflex, Pupils Fixed & Dilated, Absence of Vital Signs - Pronouncement Time Time of Pronouncement of : 09:03 - Notifications Pronouncement Notifications: Family Notified, Atending Notified [employer] Notified: Yes - [place] [id number]
--- NOTE | 2018-11-10 11:58 | RAD ---
Chest x-ray single frontal view HISTORY: Sepsis. Comparison: 06/25/2018 Findings: Prominent consolidative opacification at the right lung base. Diffuse increased interstitial lung markings. Biapical pleural thickening with upper lobe granulomatous changes. Heart size within normal limits. Degenerative changes in the spine and shoulders. Distended loops of bowel seen within the mid abdomen. Fecal retention in the left hemicolon. Impression: Prominent consolidative opacification at the right lung base. Diffuse increased interstitial lung markings. Biapical pleural thickening with upper lobe granulomatous changes. Heart size within normal limits. Degenerative changes in the spine and shoulders. Distended loops of bowel seen within the mid abdomen. Fecal retention in the left hemicolon.
--- NOTE | 2018-11-10 12:06 | RAD ---
Chest x-ray single frontal view HISTORY: Post line insertion. Comparison: None available. Findings: Left sided venous catheter with tip extending to the confluence of the right SVC/axillary junction. Biapical pleural thickening with upper lobe granulomatous changes. Moderate venous congestion. Patchy consolidative opacification in the right infrahilar region. Elevated right hemidiaphragm. Heart size within normal limits. Bilateral hilar prominence. Distended loops of bowel in the mid abdomen. Impression: Left sided venous catheter with tip extending to the confluence of the right SVC/axillary junction. Biapical pleural thickening with upper lobe granulomatous changes. Moderate venous congestion. Patchy consolidative opacification in the right infrahilar region. Elevated right hemidiaphragm. Heart size within normal limits. Bilateral hilar prominence. Distended loops of bowel in the mid abdomen.
--- NOTE | 2018-11-10 17:05 | CT ---
Date of service:11/09/2018 CT chest, abdomen, and pelvis without IV contrast Indication: abd distension Technique: Contiguous axial images of the chest, abdomen, and pelvis without oral or IV contrast. Coronal and Sagittal reformats generated and reviewed. This CT exam was performed using 1 or more of the following dose reduction techniques: Automated exposure control, adjustment of the MAA and/or kV according to patient size, and/or use of iterative reconstruction technique. Radiation dose: Total exam DLP = 526.49 MGy-cm. Comparison: CT abdomen and pelvis without contrast performed 06/19/18 Findings: Visualized portions of the inferior thyroid gland appear heterogeneous. The unenhanced mediastinal and hilar vascular structures appear grossly unremarkable. Cardiomegaly. Trace pericardial effusion. Moderate bilateral lower lobe consolidation, right greater than left. No pneumothorax. Probable bilateral small effusions. Small hiatal hernia. Cholelithiasis. The noncontrast liver, spleen, kidneys, pancreas, and adrenal glands appear unremarkable. Percutaneous gastrostomy. Postsurgical changes of the stomach. The stomach is nondistended. Lack of oral contrast limits evaluation for bowel pathology. Bowel containing right inguinal hernia. Question presence of pneumatosis coli. Diffusely dilated large bowel measuring up to 7.8 cm, right colon. Extensive diffuse constipation. There is no definite free air. Atherosclerotic calcifications of the aorta and branches. Thick-walled urinary bladder. Evidence of sludge or small stones in the urinary bladder. 3.7 x 1.6 cm fluid attenuation noted caudal to the bulbar urethra; correlate clinically for possibility of urine collection or abscess. Moderate enlargement of the prostate gland. Osseous demineralization. Degenerative changes. Sclerosis at the left sacroiliac joint. Impression: Cardiomegaly. Trace pericardial effusion. Moderate bilateral lower lobe consolidation, right greater than left. Probable bilateral small effusions. Small hiatal hernia. Cholelithiasis. Percutaneous gastrostomy. Postsurgical changes of the stomach. 3.7 x 1.6 cm fluid attenuation noted caudal to the bulbar urethra; correlate clinically for possibility of urine collection or abscess. Bowel containing right inguinal hernia. No evidence of bowel obstruction. Extensive diffuse constipation. Question presence of pneumatosis coli. Correlate for severe ileus. Thick-walled urinary bladder; correlate with urinalysis. Evidence of sludge or small stones in the urinary bladder. Moderate enlargement of the prostate gland. Correlate with PSA. Additional findings as above. Preliminary impression was provided by [facility]. Patient discussed with ALY Donaldson on 11/10/18 at 4:59 p.m.
--- NOTE | 2018-11-10 20:24 | CP.PCM.HP ---
Present on Admission - Present on Admission Any Indicators Present on Admission: No Past Patient History - Past Medical History & Family History Past Medical History?: Yes - Past Social History Smoking Status: Unknown If Ever Smoked Alcohol: None Home Situation {Lives}: Shelter Domestic Violence: Negative - CARDIAC Hx Hypertension: Yes - PULMONARY Hx Pneumonia: Yes - NEUROLOGICAL Hx Dementia: Yes Hx Parkinson's Disease: Yes - HEENT Hx HEENT Problems: Yes Hx Difficulty Chewing: Yes Other/Comment: Dysphagia - RENAL Hx Chronic Kidney Disease: No - ENDOCRINE/METABOLIC Hx Diabetes Mellitus Type 2: Yes - HEMATOLOGICAL/ONCOLOGICAL Hx Anemia: Yes - INTEGUMENTARY Hx Dermatological Problems: Yes Other/Comment: skin breakdown sacrum with wound vac - MUSCULOSKELETAL/RHEUMATOLOGICAL Hx Musculoskeletal Disorders: Yes Hx Falls: No Hx Unsteady Gait: Yes Other/Comment: bed bound - GASTROINTESTINAL Hx Gastrointestinal Disorders: No Other/Comment: PEG tube - GENITOURINARY/GYNECOLOGICAL Hx Genitourinary Disorders: Yes Hx Incontinence: Yes Hx Prostate Problems: Yes (BPH) Other/Comment: inguinal hernia - PSYCHIATRIC Hx Substance Use: No - SURGICAL HISTORY Hx Surgeries: No - ANESTHESIA Hx Anesthesia: Yes Hx Anesthesia Reactions: No Hx Malignant Hyperthermia: No Meds Allergies/Adverse Reactions: Allergies Allergy/AdvReac Type Severity Reaction Status Date / Time No Known Allergies Allergy Verified 11/09/18 19:58 Results - Vital Signs Recent Vital Signs: Last Vital Signs Temp 96 F L 11/10/18 03:00 Pulse 103 H 11/10/18 08:02 Resp 21 11/10/18 08:02 BP 54/30 L 11/10/18 08:02 Pulse Ox 100 11/10/18 08:02 - Labs Result Diagrams: 11/10/18 01:31 11/10/18 01:31 Labs: Laboratory Results - last 24 hr 11/09/18 11/09/18 11/09/18 20:48 20:51 20:51 WBC RBC Hgb Hct MCV MCH MCHC RDW Plt Count MPV Neut % (Auto) Lymph % (Auto) [place] % (Auto) Eos % (Auto) Baso % (Auto) Neut # (Auto) Lymph # (Auto) [place] # (Auto) Eos # (Auto) Baso # (Auto) Neutrophils % (Manual) Band Neutrophils % Lymphocytes % (Manual) Monocytes % (Manual) Metamyelocytes % Myelocytes % Nucleated RBC % Platelet Estimate Acanthocytes (Spur) Schistocytes PT 21.1 H INR 1.9 APTT 34 Puncture Site pCO2 pO2 HCO3 ABG pH ABG Total CO2 ABG O2 Saturation ABG Base Excess Nader Test ABG Potassium VBG pH VBG pCO2 VBG HCO3 VBG Total CO2 VBG O2 Sat (Calc) VBG Base Excess VBG Potassium A-a O2 Difference Respiratory Index Glucose Lactate FiO2 Crit Value Called To Crit Value Called By Crit Value Read Back Blood Gas Notified Time Sodium 144 Potassium 4.7 Chloride 116 H Carbon Dioxide 12 L Anion Gap 21 H BUN 49 H Creatinine 2.1 H Est GFR ( Amer) 37 Est GFR (Non-Af Amer) 30 POC Glucose (mg/dL) 145 H Random Glucose 111 H Lactic Acid Calcium 7.7 L Phosphorus 7.7 H Magnesium 3.1 H Total Bilirubin 0.9 AST 64 H D ALT 11 L D Alkaline Phosphatase 114 Total Protein 5.9 L Albumin 2.5 L Globulin 3.4 Albumin/Globulin Ratio 0.7 L Arterial Blood Potassium Venous Blood Potassium Urine Color Urine Clarity Urine pH Ur Specific [place] Urine Protein Urine Glucose (UA) Urine Ketones Urine Blood Urine Nitrate Urine Bilirubin Urine Urobilinogen Ur Leukocyte Esterase Urine WBC (Auto) Urine RBC (Auto) Urine Bacteria Blood Type Antibody Screen 11/09/18 11/09/18 11/09/18 21:36 21:45 22:17 WBC 32.1 H D RBC 3.13 L Hgb 7.7 L D Hct 26.5 L MCV 84.9 D MCH 24.7 L MCHC 29.1 L RDW 20.7 H Plt Count 419 H D MPV 7.7 Neut % (Auto) 89.0 H Lymph % (Auto) 5.1 L [place] % (Auto) 5.7 Eos % (Auto) 0.0 Baso % (Auto) 0.2 Neut # (Auto) 28.6 H Lymph # (Auto) 1.6 [place] # (Auto) 1.8 H Eos # (Auto) 0.0 Baso # (Auto) 0.1 Neutrophils % (Manual) 61 Band Neutrophils % 25 H* Lymphocytes % (Manual) 3 L Monocytes % (Manual) 8 Metamyelocytes % 1 H Myelocytes % 2 H Nucleated RBC % 12 H Platelet Estimate Normal Acanthocytes (Spur) Moderate Schistocytes Moderate PT INR APTT Puncture Site pCO2 pO2 56 H HCO3 ABG pH ABG Total CO2 ABG O2 Saturation ABG Base Excess Nader Test ABG Potassium VBG pH 7.01 L* VBG pCO2 55 VBG HCO3 10.6 VBG Total CO2 15.6 L VBG O2 Sat (Calc) 79.7 H VBG Base Excess -17.4 L VBG Potassium 6.0 H A-a O2 Difference Respiratory Index Glucose 91 Lactate 9.1 H* FiO2 21.0 Crit Value Called To Dr qureshi s Crit Value Called By [facility] Crit Value Read Back Y Blood Gas Notified Time 220 Sodium 144.0 Potassium Chloride 116.0 H Carbon Dioxide Anion Gap BUN Creatinine Est GFR ( Amer) Est GFR (Non-Af Amer) POC Glucose (mg/dL) Random Glucose Lactic Acid Calcium Phosphorus Magnesium Total Bilirubin AST ALT Alkaline Phosphatase Total Protein Albumin Globulin Albumin/Globulin Ratio Arterial Blood Potassium Venous Blood Potassium 6.0 H Urine Color Red Urine Clarity Turbid Urine pH 8.0 Ur Specific [place] 1.012 Urine Protein 3+ H Urine Glucose (UA) Normal Urine Ketones Negative Urine Blood 3+ H Urine Nitrate Negative Urine Bilirubin Negative Urine Urobilinogen Normal Ur Leukocyte Esterase 3+ H Urine WBC (Auto) 195 H Urine RBC (Auto) 3288 H Urine Bacteria Few H Blood Type Antibody Screen 11/10/18 11/10/18 11/10/18 01:31 01:31 01:31 WBC RBC Hgb Hct MCV MCH MCHC RDW Plt Count MPV Neut % (Auto) Lymph % (Auto) [place] % (Auto) Eos % (Auto) Baso % (Auto) Neut # (Auto) Lymph # (Auto) [place] # (Auto) Eos # (Auto) Baso # (Auto) Neutrophils % (Manual) Band Neutrophils % Lymphocytes % (Manual) Monocytes % (Manual) Metamyelocytes % Myelocytes % Nucleated RBC % Platelet Estimate Acanthocytes (Spur) Schistocytes PT INR APTT Puncture Site pCO2 pO2 HCO3 ABG pH ABG Total CO2 ABG O2 Saturation ABG Base Excess Nader Test ABG Potassium VBG pH VBG pCO2 VBG HCO3 VBG Total CO2 VBG O2 Sat (Calc) VBG Base Excess VBG Potassium A-a O2 Difference Respiratory Index Glucose Lactate FiO2 Crit Value Called To Crit Value Called By Crit Value Read Back Blood Gas Notified Time Sodium 144 Potassium 6.8 H* D Chloride 115 H Carbon Dioxide 12 L Anion Gap 23 H BUN 53 H Creatinine 2.2 H Est GFR ( Amer) 35 Est GFR (Non-Af Amer) 29 POC Glucose (mg/dL) Random Glucose 55 L D Lactic Acid 9.5 H* Calcium 7.5 L Phosphorus 10.3 H Magnesium 3.9 H Total Bilirubin 1.2 AST 132 H D ALT 26 Alkaline Phosphatase 104 Total Protein 5.9 L Albumin 2.5 L Globulin 3.4 Albumin/Globulin Ratio 0.7 L Arterial Blood Potassium Venous Blood Potassium Urine Color Urine Clarity Urine pH Ur Specific [place] Urine Protein Urine Glucose (UA) Urine Ketones Urine Blood Urine Nitrate Urine Bilirubin Urine Urobilinogen Ur Leukocyte Esterase Urine WBC (Auto) Urine RBC (Auto) Urine Bacteria Blood Type A POSITIVE Antibody Screen Negative 11/10/18 11/10/18 11/10/18 01:31 01:43 03:19 WBC 31.8 H RBC 3.04 L Hgb 7.4 L Hct 26.7 L MCV 87.8 D MCH 24.3 L MCHC 27.7 L RDW 20.9 H Plt Count 366 MPV 7.9 Neut % (Auto) 73.4 Lymph % (Auto) 5.5 L [place] % (Auto) 3.5 Eos % (Auto) 17.4 H Baso % (Auto) 0.2 Neut # (Auto) 23.4 H Lymph # (Auto) 1.8 [place] # (Auto) 1.1 H Eos # (Auto) 5.5 H Baso # (Auto) 0.1 Neutrophils % (Manual) Band Neutrophils % Lymphocytes % (Manual) Monocytes % (Manual) Metamyelocytes % Myelocytes % Nucleated RBC % Platelet Estimate Acanthocytes (Spur) Schistocytes PT INR APTT Puncture Site Rr pCO2 56 H pO2 76 L HCO3 9.3 L* ABG pH 6.96 L* ABG Total CO2 14.3 L ABG O2 Saturation 90.3 L ABG Base Excess -19.5 L Nader Test Pos ABG Potassium 6.9 H* VBG pH VBG pCO2 VBG HCO3 VBG Total CO2 VBG O2 Sat (Calc) VBG Base Excess VBG Potassium A-a O2 Difference 567.0 Respiratory Index 7.5 Glucose 54 L Lactate 9.2 H* FiO2 100.0 Crit Value Called To Maurilio hooks rn Crit Value Called By Lewis office administrative assistant Crit Value Read Back Y Blood Gas Notified Time 145 Sodium 143.0 Potassium Chloride 117.0 H Carbon Dioxide Anion Gap BUN Creatinine Est GFR ( Amer) Est GFR (Non-Af Amer) POC Glucose (mg/dL) 160 H Random Glucose Lactic Acid Calcium Phosphorus Magnesium Total Bilirubin AST ALT Alkaline Phosphatase Total Protein Albumin Globulin Albumin/Globulin Ratio Arterial Blood Potassium 6.9 H* Venous Blood Potassium Urine Color Urine Clarity Urine pH Ur Specific [place] Urine Protein Urine Glucose (UA) Urine Ketones Urine Blood Urine Nitrate Urine Bilirubin Urine Urobilinogen Ur Leukocyte Esterase Urine WBC (Auto) Urine RBC (Auto) Urine Bacteria Blood Type Antibody Screen
--- NOTE | 2018-11-11 05:21 | HP ---
CHIEF COMPLAINT: Altered mental status. HISTORY OF PRESENT ILLNESS: This is an 83-year-old white male who is currently in a [facility]. He has history of Parkinson disease, mild dementia, and the patient has urinary retention. 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 He was found to be lethargic and obtunded by his daughter who visits him in the ch[facility] daily. So, according to her, he was fine the day before the day of admission, and he was according to his baseline mental status, and on the day of admission, and lethargic. The patient was transported to emergency room. In the ER, he was hypoxic, acidotic, high lactic acid level, hypotensive, elevated BUN and creatinine and no urine output. A Mckinnon was inserted. A dark reddish urine. The patient received 3 liters of IV fluids. Then after that, he was hypotensive, obtunded, not able to communicate. The patient was admitted to ICU, and he was started on treatment antibiotics, IV fluids. PAST MEDICAL HISTORY: Alzheimer's, Parkinson's, sacral decubitus, pneumonia, cholelithiasis, type 2 diabetes, hypertension. SOCIAL HISTORY: Not obtainable. CURRENT MEDICATIONS: The patient is on insulin, Catapres-TTS patch, Protonix, tramadol, multivitamin, Lopressor, Xopenex, Sinemet, Tylenol, ascorbic acid. ALLERGIES: UNKNOWN ALLERGIES. PHYSICAL EXAMINATION: GENERAL: An elderly male who is lethargic, obtunded. VITAL SIGNS: Blood pressure 66/37, pulse 114, respiratory rate 28. SKIN: Dry. Poor turgor. No bruises. No purpura. NECK: Supple. No JVD. CHEST WALL: Bilateral symmetrical expansion. Positive rale. No rhonchi. CVS: S1, S2, regular. Tachycardic. ABDOMEN: Bowel sounds are exaggerated, soft. PROOF LOAD MECHANIC: The patient is obtunded. ASSESSMENT: 1. Septicemia. Most likely the source is urine, less likely to be respiratory. 2. Rule out gastrointestinal bleed. 3. Sacral decubitus. 4. Parkinson's. 5. Alzheimer's. PLAN: Admit. Detailed orders written. The patient subsequently continued to deteriorate until he . Jon Powell MD [facility] # [id number]
--- NOTE | 2018-11-11 23:56 | CARD ---
APPROVED REPORT Date of service: 11/09/2018 EKG Measurement Heart [id number] <Conclusion> Sinus tachycardia Nonspecific T wave abnormality Abnormal ECG
== END 2018-11-10 09:03 | DRG 871 ==
LOC: C.ER 19:56 → C.9I 22:22
PROVIDERS: ADMIT Internal Medicine; ATTEND Internal Medicine
PROC: 3E033XZ Introduction of Vasopressor into Peripheral Vein, Percutaneous Approach (ICD-10-PCS; principal; 2018-11-10)
PROC: 02HV33Z Insertion of Infusion Device into Superior Vena Cava, Percutaneous Approach (ICD-10-PCS; 2018-11-10)
PROC: 30233N1 Transfusion of Nonautologous Red Blood Cells into Peripheral Vein, Percutaneous Approach (ICD-10-PCS; 2018-11-10)
DX: A41.9 Sepsis, unspecified organism (principal); L89.154 Pressure ulcer of sacral region, stage 4; R65.21 Severe sepsis with septic shock; N17.9 Acute kidney failure, unspecified; E87.2 Acidosis; K94.23 Gastrostomy malfunction; R64 Cachexia; K55.9 Vascular disorder of intestine, unspecified; I10 Essential (primary) hypertension; G20 Parkinson's disease; F02.80 Dementia in other diseases classified elsewhere, unspecified severity, without behavioral disturbance, psychotic disturbance, mood disturbance, and anxiety; G30.9 Alzheimer's disease, unspecified; D64.9 Anemia, unspecified; E86.0 Dehydration; E11.9 Type 2 diabetes mellitus without complications; Y83.3 Surgical operation with formation of external stoma as the cause of abnormal reaction of the patient, or of later complication, without mention of misadventure at the time of the procedure; N40.1 Benign prostatic hyperplasia with lower urinary tract symptoms; R09.02 Hypoxemia; R31.9 Hematuria, unspecified; Z66 Do not resuscitate; Z74.01 Bed confinement status; Z79.4 Long term (current) use of insulin